=== PATIENT | female | born 1965 | race Caucasian/White ===

== ENCOUNTER → 2017-02-14 | Day surgery (SDC) | payer OTHER ==
[~2017-02-14] VITALS: Ht 161.3 cm; Wt 142.0 kg
[~2017-02-14] MED LIST: ACETAMINOPHEN 325 MG TAB PO PRN; ASPCH81X PO; ASPI81TA28 PO; ATROPINE SULFATE 0.1 MG/ML 5ML SYR IV PRN; B-COTAB18 PO; CALC-393 PO; CETI10TA99 PO; CHOL100010 PO; CHOL200010 PO; CLR10 PO; DC ALL ANTICOAGULANTS ONE; ESCI1TAB10 PO; FENTANYL CITRATE INJ 50 MCG/1 ML 2 ML VIAL ONE; FERR1TAB61 PO; GABA800T PO; HEPARIN SOD (PORCINE) 1000 UNIT/ML 10 ML VIAL ONE; HYDR25TA4 PO; IBUP1CAP9 PO; LANS30CA12 PO; MECL1TAB42 PO; MIDAZOLAM HCL 1 MG/ML 2ML VIAL ONE; MULT-506 PO; NITROGLYCERIN/D5W 100MCG/ML 20ML SYR ONE; NiCARDipine HCL INJ 2.5 MG/ML 10 ML AMP ONE; OMEP40CA PO; ONDANSETRON INJ 2 MG/ML 2 ML VIAL IV PRN; RANI150T3 PO; SODIUM CHLORIDE 0.9% 1000ML 1,000 ML IV SCH; SODIUM CHLORIDE 0.9% 1000ML 250 ML IV PRN; TRAZ50TA35 PO; ZINC100T2 PO
[2017-02-14 09:16] VITALS: BP 144/114; PULSE 61; TEMP 36.4; O2SAT 98; Ht 161.3 cm; Wt 142.0 kg
--- NOTE | 2017-02-14 10:25 | History & Physical Bridge Note ---
H&P Re-Evaluation Bridge Note: I have examined the patient, reviewed the History & Physical and in the interval since the performance of the History & Physical I have noted the following changes of clinical significance: No changes noted
--- NOTE | 2017-02-14 10:30 | Cardiac Catheterization ---
Procedure Note Procedure Date Feb 14, 2017. Pre-Procedure Diagnosis Angina AUC Score 7 Post-Procedure Diagnosis Normal Coronary Arteries Procedure(s) Performed Coronary Angiography [employer] Dr. Dobbins Director Of Nuclear Medicine(s) None Estimated Blood Loss None Medication(s) Heparin, Versed, Lidocaine 1% Summary of Findings Normal coronaries Hemodynamics Rest Ao: 126/78 Final Ao: 129/78 LV: 129/11 Recommendations Medical therapy and/or Counseling Specimens None Radiation Exposure (mGy) 1219 Contrast (mls) 55 Fluids (cc crystalloids) 50 Procedural Complication(s) None Disposition Pattern Hand Holding/Recovery ACC Data Cardiac Status Clinical evaluation leading to the procedure CAD Presntation: Stable angina Anginal Classification: CCS II Heart Failure: No Cardiogenic Shock w/in 24Hrs: No Cardiac Arrest w/in 24Hrs: No Imaging studies past 6 months: Yes Stress studies past 6 months: Yes Standard Exercise Stress Test: No Stress Echocardiogram: Yes - Indeterminant Stress Testing w/SPECT MPI: No Cardiac CTA: No Coronary Anatomy Dominant: Right Left Main (% Stenosis): Normal LAD (% Stenosis): Normal Circumflex (% Stenosis): Normal RCA (% Stenosis): Normal Diagnostic Status: Elective Closure Device Percutaneous Entry Location: Radial Closure Device: Radial Band Recommendations: Medical therapy and/or Counseling
--- NOTE | 2017-02-14 10:32 | Discharge Instructions ---
Discharge Instructions Procedure Procedure Date: Feb 14, 2017. Reason for Visit: Chest Pain Dr Dobbins To Do. Discharge Discharge Date: Feb 14, 2017. Discharge Diagnosis: Normal Coronaries Last Recorded Wt (Kilograms): 142 Anesthesia Post Anesthesia Instructions: If you have had General Anesthesia or IV Sedation: * Do not drive today. * Resume driving when surgeon permits. * Do not make important decisions or sign legal documents today. * Call surgeon for: 1. Temperature elevations greater than 101 degrees F. 2. Uncontrollable pain. 3. Excessive bleeding. 4. Persistent nausea and vomiting. 5. Medication intolerance (nausea, vomiting or rash). * For nausea and vomiting use only clear liquids such as: tea, soda, bouillon until nausea subsides, then gradually increase diet as tolerated. * If you have any concerns or questions, call your surgeon's office. If physician is unavailable and it is an emergency, call 911 or go to the nearest emergency room. Instructions Activity Recommendations: limitations Recommended Home Diet: resume previous diet Allergies: Coded Allergies: Lisinopril (Verified Allergy, Severe, EDEMA TO FACE/LIPS/TONGUE, 09/26/15) Celecoxib (Verified Allergy, Unknown, PT REPORTED ALLERGY DURING HOSP STAY -REDNESS, 09/26/15) Morphine (Verified Adverse Reaction, Intermediate, ITCHING, 09/26/15) Vancomycin (Verified Adverse Reaction, Intermediate, RED, ITCHY--RED MAN'S , 09/26/15) Penicillins (Verified Adverse Reaction, Mild, FATIGUE, 09/23/15) Uncoded Allergies: PENICILLIN (Allergy, Unknown, Trouble walking, 09/26/15) Provider Instructions ACTIVITY RECOMMENDATIONS: Excess manipulation of the wrist should be avoided for the next 24-48 hours. * No lifting over 2 pounds (approximately a 1/2 gallon of milk) with the utilized arm for 24 hours. * No strenuous activity such as bowling or tennis for 3 days. * Keep the site of the procedure covered with a bandage for 24 hours. *You may shower the day after the procedure. Do not take a tub bath or submerge the puncture site in water for the next 3 days. *Do not operate any motorized equipment for 3 days. SPECIAL CARE INSTRUCTIONS: The site may be slightly bruised and sore following your procedure. Should any of the following occur, contact the DrReilly who performed your procedure. 1. Redness/inflammation, swelling, chills, or fever, or colored drainage at procedure site within 3-7 days after your procedure. 2. Coldness, discoloration, ongoing numbness, severe pain, or swelling. Expect mild tingling of hand and tenderness at the puncture site for up to three days. If this persists beyond three days, or other symptoms develop, notify the DrReilly who performed your procedure. BLEEDING: If the procedure site on your wrist begins to bleed, do not panic 1. Place 1 or 2 fingers firmly just slightly above the insertion site to stop the bleeding. You may be able to feel your pulse as you hold pressure. 2. Lift your finger after 5 minutes to see if the bleeding has stopped. 3. Once the bleeding has stopped, gently wipe the wrist area clean with a bandage. * If the bleeding from your wrist does not stop after 10 minutes, or if there is a large amount of bleeding or spurting, call 911 ([address] drive yourself to the hospital). SKIN IRRITATION: * You may experience some redness and/or swelling in the area where radiation was administered. If any skin irritation occurs, please contact your family physician. FOLLOW UP VISIT: Keep any scheduled doctor appointments. Follow Up Paulina Trinh Recommendations: Call your doctor if: * Temperature above 101 degrees * Pain not relieved by pain medicine ordered * There is increased drainage or redness from any incision * You have any unanswered questions or concerns. Your Doctors Instructions noted above were prepared by provider Christoph Dobbins. Patient Signature Section: Patient Instructions Signature Page Maty Perkins Patient (or Guardian) Signature/Date: I have read and understand the instructions given to me by my caregivers. Caregiver/RN/Doctor Signature/Date: The above-named patient and/or guardian has received patient instructions on this date. + Original Patient Signature Page (only) stays with chart. Please make copy for patient.
--- NOTE | 2017-02-14 10:33 | Procedure Note ---
Pre-Mod Sedation Assessment General Date of Moderate Sedation: Feb 14, 2017. Vital Signs: Vital Signs Past 12 Hours Date Time Temp Pulse Resp B/P (MAP) Pulse Ox O2 Delivery O2 Flow Rate FiO2 02/14/17 10:18 60 16 150/79 (102) 97 Mask 2 02/14/17 09:16 36.4 61 16 144/114 98 Room Air Review Cardiovascular: regular rate, rhythm, no murmur Abdomen: non tender, soft, no organomegaly Lungs: chest non-tender, lungs clear, normal breath sounds Airway Class: I Pre-Sedation Airway Assessment Oral Cavity: Capped Teeth Able to Visualize Vocal Cords: No Short Thick Neck: No Hx of Sleep Apnea: Yes Smoking Status: Never Smoker Mallampati Classification: Class I (Sft palate,uvula,fauces,pillar) ASA Classification: Class I Procedure Planning Contraindications-for Mod Sed: None Yes Notes The planned sedation has been discussed with the patient and consent obtained. I have identified the patient, determined the appropriateness of sedation and have assessed the patient immediately prior to the procedure. All medicine(s) and interventions are by my order.
--- NOTE | 2017-02-14 10:34 | Procedure Note ---
Post-Mod Sedation Assessment General Date of Moderate Sedation Feb 14, 2017. Stop: 10:18 AM Vital Signs: Vital Signs Past 12 Hours Date Time Temp Pulse Resp B/P (MAP) Pulse Ox O2 Delivery O2 Flow Rate FiO2 02/14/17 10:18 60 16 150/79 (102) 97 Mask 2 02/14/17 09:16 36.4 61 16 144/114 98 Room Air Review - Discharge Criteria Vital Signs Stable: Yes Alert/Oriented/Conversant: Yes Returned to Baseline Mental St: Yes Nausea Absent/Minimal: Yes Pain/Discomfort/Absent/Minimal: Yes Normal/Baseline Respirations: Yes Active Bleeding?: No Pt Received D/C Instructions: Yes Specific Proced. D/C Criteria Distal Pulses Present (Cardiac: Yes Groin site assessed-Card Cath: Yes Voided Prior To Discharge: Yes Discharged Patients Adult Escort/Transportation: Yes
[2017-02-14 12:15] VITALS: BP 130/79; PULSE 57; O2SAT 98
== END | disposition home or self-care (01) ==
LOC: C.CATH 08:17
PROVIDERS: ATTEND Internal Medicine Interventional Cardiology
DX: R07.9 Chest pain, unspecified (principal); E66.01 Morbid (severe) obesity due to excess calories; I10 Essential (primary) hypertension; F33.9 Major depressive disorder, recurrent, unspecified; G47.33 Obstructive sleep apnea (adult) (pediatric); Z82.49 Family history of ischemic heart disease and other diseases of the circulatory system; Z80.0 Family history of malignant neoplasm of digestive organs; Z79.899 Other long term (current) drug therapy; Z83.3 Family history of diabetes mellitus; Z79.82 Long term (current) use of aspirin; Z83.6 Family history of other diseases of the respiratory system

== ENCOUNTER → 2017-04-08 | Day surgery (SDC) | payer OTHER ==
[2017-04-03 15:26] VITALS: Ht 161.3 cm; Wt 138.6 kg
[~2017-04-08] VITALS: Ht 161.3 cm; Wt 138.6 kg
[~2017-04-08] MED LIST changes: -ACETAMINOPHEN 325 MG TAB PO PRN; -ASPCH81X PO; -ASPI81TA28 PO; -ATROPINE SULFATE 0.1 MG/ML 5ML SYR IV PRN; -CALC-393 PO; -CETI10TA99 PO; -CHOL200010 PO; -DC ALL ANTICOAGULANTS ONE; -FENTANYL CITRATE INJ 50 MCG/1 ML 2 ML VIAL ONE; -HEPARIN SOD (PORCINE) 1000 UNIT/ML 10 ML VIAL ONE; -IBUP1CAP9 PO; +LIDOCAINE HCL 2% 2 ML VIAL (20MG/ML) ONE; -NITROGLYCERIN/D5W 100MCG/ML 20ML SYR ONE; -NiCARDipine HCL INJ 2.5 MG/ML 10 ML AMP ONE; -OMEP40CA PO; -ONDANSETRON INJ 2 MG/ML 2 ML VIAL IV PRN; +PROPOFOL IV EMULSION 10 MG/ML 20 ML VIAL IV ONE; -SODIUM CHLORIDE 0.9% 1000ML 1,000 ML IV SCH; -SODIUM CHLORIDE 0.9% 1000ML 250 ML IV PRN; +SODIUM CHLORIDE 0.9% 500ML 500 ML IV ONE
--- NOTE | 2017-04-08 10:02 | Endo History and Physical ---
History & Physical Date of Service: Apr 08, 2017. Chief Complaint: chest pain Referring Physician: Dr. Anderson Nieves History of Present Illness non cardiac chest pain Past Medical History Arthritis, Fractures, Reflux, Sleep Apnea, Hypertension, Other, Depression Past Surgical History Hx Cardiac Surgery: No Hx Internal Defibrillator: No Hx Pacemaker: No Hx Abdominal Surgery: Yes (SHARIFA BSO, LAPAROSCOPY X5(?), FIBROID TUMOR REMOVAL) Hx Post-Op Nausea and Vomiting: No Hx Cancer Surgery: No Hx Thoracic Surgery: No Hx Orthopedic: Yes (L4-5 FUSION AND REVISION, RT/LT TKA, RT TKA REVISION, LT HAND, LT WRIST) Hx Urinary Tract Surgery: No Family History Colon CA Social History Smoking Status: Never Smoker Hx Substance Use: No Hx Alcohol Use: Yes (RARELY) Allergies Coded Allergies: Lisinopril (Verified Allergy, Severe, EDEMA TO FACE/LIPS/TONGUE, 04/03/17) Celecoxib (Verified Allergy, Unknown, PT REPORTED ALLERGY DURING HOSP STAY -REDNESS, 04/03/17) Morphine (Verified Adverse Reaction, Intermediate, ITCHING, 04/03/17) Vancomycin (Verified Adverse Reaction, Intermediate, RED, ITCHY--RED MAN'S , 04/03/17) Penicillins (Verified Adverse Reaction, Mild, FATIGUE, 04/03/17) Uncoded Allergies: JEWELRY (Allergy, Unknown, SKIN IRRITATION, 04/03/17) PT STATES HAS HAD NO PROBLEMS SURGERIES INCLUDING HARDWARE PENICILLIN (Allergy, Unknown, Trouble walking, 09/26/15) Current Medications Reported Home Medications Medications Dose Route/Sig Max Daily Dose Days Date Category Iron (Ferrous Sulfate) 45 Mg Tab 1 Tab PO DAILY 04/03/17 Reported Zinc 100 Mg Tab 1 Tab PO DAILY 04/03/17 Reported Claritin (Loratadine) 10 Mg Tab 10 Mg PO QAM 04/03/17 Reported Multivitamin (Multivitamins) Tab 1 Tab PO DAILY 02/14/17 Reported Vitamin B Complex (B-Complex Vitamins) 1 Tab Tab 1 Tab PO DAILY 02/14/17 Reported Meclizine Hcl 25 Mg Tab 1 Tab PO TID PRN 02/14/17 Reported Lexapro (Escitalopram Oxalate) 20 Mg Tab 20 Mg PO QAM 02/14/17 Reported Vitamin D (Cholecalciferol) 1,000 Unit Tab 1,000 Units PO DAILY 02/14/17 Reported Trazodone (Trazodone HCl) 50 Mg Tab 50 Mg PO HS 02/14/17 Reported Hctz (Hydrochlorothiazide) 25 Mg Tab 1 Tab PO QAM 02/14/17 Reported Zantac (Ranitidine HCl) 150 Mg Tab 1 Tab PO BID 02/14/17 Reported Prevacid (Lansoprazole) 30 Mg Capcr 30 Mg PO QAM 02/14/17 Reported Neurontin (Gabapentin) 800 Mg Tab 800 Mg PO BID 02/14/17 Reported Vital Signs Weight (Kilograms): 138.64 Height (Feet): 5 Height (Inches): 3.5 Date Time Temp Pulse Resp B/P (MAP) Pulse Ox O2 Delivery O2 Flow Rate FiO2 04/08/17 09:22 36.6 57 20 119/66 (83) 97 Room Air Physical Exam General Appearance: WD/WN, no apparent distress Assessment and Plan EGD with SHOOK today
--- NOTE | 2017-04-08 10:16 | Discharge Instructions ---
Endoscopy Patient Instructions Date / Procedure(s) Performed Apr 08, 2017. EGD Allergy Information Coded Allergies: Lisinopril (Verified Allergy, Severe, EDEMA TO FACE/LIPS/TONGUE, 04/03/17) Celecoxib (Verified Allergy, Unknown, PT REPORTED ALLERGY DURING HOSP STAY -REDNESS, 04/03/17) Morphine (Verified Adverse Reaction, Intermediate, ITCHING, 04/03/17) Vancomycin (Verified Adverse Reaction, Intermediate, RED, ITCHY--RED MAN'S , 04/03/17) Penicillins (Verified Adverse Reaction, Mild, FATIGUE, 04/03/17) Uncoded Allergies: JEWELRY (Allergy, Unknown, SKIN IRRITATION, 04/03/17) PT STATES HAS HAD NO PROBLEMS SURGERIES INCLUDING HARDWARE PENICILLIN (Allergy, Unknown, Trouble walking, 09/26/15) Discharge Date / Findings Apr 08, 2017. normal EGD; SHOOK placed Medication Instructions Stopped Medication(s): stopped supplements on Saturday Restart Stopped Medication(s): OK to resume all home medications as above Provider Instructions Activity Restrictions - No exercising or heavy lifting for 24 hours. - Do not drink alcohol the day of the procedure. - Do not drive a car or operate machinery until the day after the procedure. - Do not make any important decisions or sign important papers in 24 hours after the procedure. Following Day: - Return to full activity which may include returning to work/school. Diet Start your diet with liquids and light foods (jello, soup, juice, toast). Then eat your usual diet if not nauseated. Treatment For Common After Affects For mild abdominal pain, bloating, or excessive gas: - Rest - Eat lightly - Lie on right side Follow-Up Information Follow-up with Dr. Anderson Nieves as scheduled Anesthesia Information What You Should Know You have had a procedure that required some medicine to reduce anxiety and discomfort. This treatment is called moderate sedation. After receiving the treatment, you may be sleepy, but you will be able to breathe on your own. The effects of the treatment may last for several hours. Follow these instructions along with Activity/Diet recommendations noted above: * Do NOT do anything where dizziness or clumsiness would be dangerous. * Rest quietly at home today, then you can be up and about tomorrow. * Have a responsible person stay with you the rest of today. * You may have had an I.V. today. If so, you may take the dressing off later today. Recommendations Call your doctor if: * Trouble breathing * Continuous vomiting for more than 24 hours * Temperature above 101 degrees * Severe abdominal pain or bloating * Pain not relieved by pain medicine ordered * There is increased drainage or redness from any incision * A large amount of rectal bleeding greater than 2-3 tablespoons. (If you had a polyp/s removed or have hemorrhoids, a small amount of blood - from the rectum is to be expected.) * You have any unanswered questions or concerns. IN THE EVENT OF A SERIOUS EMERGENCY, GO TO THE NEAREST EMERGENCY ROOM Your discharge instructions were prepared by provider Elo Mcdonough. Patient Instructions Signature Page Maty Perkins Patient (or Guardian) Signature/Date: I have read and understand the instructions given to me by my caregivers. Caregiver/RN/Doctor Signature/Date: The above-named patient and/or guardian has received patient instructions on this date. + Original Patient Signature Page (only) stays with chart. Please make copy for patient.
--- NOTE | 2017-04-08 10:21 | GI REPORT ---
Procedure Date: 04/08/2017 9:47 AM Procedure: Upper GI endoscopy Indications: Epigastric abdominal pain, Chest pain (non cardiac) Medicines: Propofol per Anesthesia Complications: No immediate complications. Estimated blood loss: None. Estimated Blood Loss: Estimated blood loss: none. Procedure: Pre-Anesthesia Assessment: - Prior to the procedure, a History and Physical was performed, and patient medications, allergies and sensitivities were reviewed. The patient's tolerance of previous anesthesia was reviewed. - The risks and benefits of the procedure and the sedation options and risks were discussed with the patient. All questions were answered and informed consent was obtained. - Patient identification and proposed procedure were verified prior to the procedure by the physician and the nurse. The procedure was verified in the pre-procedure area in the procedure room. - Mental Status Examination: alert and oriented. Airway Examination: normal oropharyngeal airway and neck mobility. Respiratory Examination: clear to auscultation. CV Examination: normal. Abdominal Examination: bowel sounds present, abdomen soft and non-tender, no masses or organomegaly noted. - ASA Grade Assessment: III - A patient with severe systemic disease. After obtaining informed consent, the endoscope was passed under direct vision. Throughout the procedure, the patient's blood pressure, pulse, and oxygen saturations were monitored continuously. The scope was introduced through the mouth, and advanced to the second part of duodenum. The upper GI endoscopy was accomplished without difficulty. The patient tolerated the procedure well. Findings: The examined esophagus was normal. The SHOOK capsule with delivery system was introduced through the mouth and advanced into the esophagus, such that the SHOOK pH capsule was positioned 32 cm from the incisors, which was 6 cm proximal to the EG junction. Suction was applied to the well of the SHOOK pH capsule to suck in the adjacent mucosa of the esophagus using the external vacuum pump set at a minimum vacuum pressure of 550 mmHg for 60 seconds. The SHOOK pH capsule was then deployed by depressing the plunger on top of the handle to advance the locking pin into the mucosa, thereby attaching the capsule to the esophagus. The plunger was then rotated a quarter turn clockwise to release the capsule from the delivery system. The delivery system was then withdrawn. Endoscopy was utilized for probe placement and diagnostic evaluation. The stomach was normal. The examined duodenum was normal. Impression: - Normal esophagus. - Normal stomach. - Normal examined duodenum. - The SHOOK pH capsule was positioned 32 cm from the naris, which was 6 cm proximal to the EG junction. - No specimens collected. Recommendation: - Follow SHOOK instructions - Continue present medications. - Return to primary care physician as previously scheduled. - Discharge patient to home. Elo Mcdonough D.O. Elo Mcdonough DO 04/08/2017 10:20:56 AM This report has been signed electronically. Note Initiated On: 04/08/2017 9:47 AM I attest to the content of the Intraoperative Record and orders documented therein, exceptions below
--- NOTE | 2017-04-08 10:28 | Anesthesiology Progress Note ---
Anesthesia Post Op Note Date & Time Apr 08, 2017 at 10:28 Vital Signs Pain Intensity: 0 Vital Signs Past 12 Hours Date Time Temp Pulse Resp B/P (MAP) Pulse Ox O2 Delivery O2 Flow Rate FiO2 04/08/17 10:20 68 18 132/82 (99) 95 Room Air 04/08/17 09:22 36.6 57 20 119/66 (83) 97 Room Air Notes Mental Status: alert / awake / arousable, participated in evaluation Pt Amnestic to Procedure: Yes Nausea / Vomiting: adequately controlled Pain: adequately controlled Airway Patency, RR, SpO2: stable & adequate BP & HR: stable & adequate Hydration State: stable & adequate Anesthetic Complications: no major complications apparent
[2017-04-08 11:00] VITALS: BP 131/91; PULSE 66; O2SAT 96
--- NOTE | 2017-04-11 11:56 | Progress Note ---
Progress Note Date of Service Apr 11, 2017. Progress Note SHOOK PROCEDURE REPORT 04/11/2017 REQUESTING PHYSICIAN: Marvin Nieves MD Following endoscopic placement of the SHOOK esophageal pH system, a 48 hour pH analysis was performed with the patient ON acid blocking medications. The fraction of time the esophageal pH was below 4 was 0.7% on day one and 0.4% on day two. The overall fraction of time for the entire study period was 0.5% ( normal range in <4.2%), indicating no significant increase in acid exposure in the distal esophagus on either day of the study. The DeMeester score on day one was 3.0 and on day two, 1.9. Normal is <14.72. The overall DeMeester score was 2.5. The patient reported less than 10 episodes of either chest pain or regurgitation during the study period. There is no correlation between the symptoms and episodes of acid exposure. There are a few brief episodes of acid exposure during the supine portions of the study. IMPRESSION: No evidence of increased acid exposure on the distal esophagus for the entire study period. Study done on acid blocking medications. Results indicate that the current level of acid suppression is effective. No symptom correlation. RECOMMENDATION: Return to PCP to discuss other potential causes of the chest pain . Elo Mcdonough DO [facility]
== END | disposition home or self-care (01) ==
LOC: C.GI 08:53
PROVIDERS: ATTEND Internal Medicine
DX: K21.9 Gastro-esophageal reflux disease without esophagitis (principal); I10 Essential (primary) hypertension; G47.30 Sleep apnea, unspecified; F32.9 Major depressive disorder, single episode, unspecified; Z80.0 Family history of malignant neoplasm of digestive organs; Z79.899 Other long term (current) drug therapy

== ENCOUNTER 2022-02-26 05:53 | Observation (INO) ==
--- NOTE | 2022-02-08 09:55 | PAT Medication Instructions ---
Medication Instructions Date of Service February 08, 2022 Home Medications escitalopram oxalate 20 mg tablet (Lexapro) 20 mg PO QAM hydrochlorothiazide 25 mg tablet 25 mg PO QAM loratadine 10 mg tablet 10 mg PO QAM meclizine 25 mg tablet 25 mg PO TID PRN Vertigo calcium carbonate 600 mg-vitamin D3 5 mcg (200 unit) tablet (Calcium 600 + D(3)) 1 tab PO QAM cimetidine 300 mg tablet 300 mg PO QAM Boswellia Zaria 1 tab PO QAM fluticasone propionate 50 mcg/actuation nasal spray,suspension (Flonase Allergy Relief) 2 spray intranasal DAILY PRN Congestion Cataplex 1 dose PO DAILY cholecalciferol (vitamin D3) 25 mcg (1,000 unit) chewable tablet (Vitamin D3) 25 mcg PO DAILY ibuprofen 200 mg tablet 400 mg PO BID lansoprazole 30 mg capsule,delayed release 30 mg PO QAM ASK your surgeon for instructions ibuprofen 200 mg tablet 400 mg PO BID STOP taking 2 weeks before surgery Boswellia Zaria 1 tab PO QAM Cataplex 1 dose PO DAILY DO NOT take the morning of surgery hydrochlorothiazide 25 mg tablet 25 mg PO QAM loratadine 10 mg tablet 10 mg PO QAM calcium carbonate 600 mg-vitamin D3 5 mcg (200 unit) tablet (Calcium 600 + D(3)) 1 tab PO QAM cholecalciferol (vitamin D3) 25 mcg (1,000 unit) chewable tablet (Vitamin D3) 25 mcg PO DAILY Take morning of surgery With a small sip of water, OTHERWISE NOTHING TO EAT OR DRINK AFTER MIDNIGHT: escitalopram oxalate 20 mg tablet (Lexapro) 20 mg PO QAM meclizine 25 mg tablet 25 mg PO TID PRN Vertigo (if needed) fluticasone propionate 50 mcg/actuation nasal spray,suspension (Flonase Allergy Relief) 2 spray intranasal DAILY PRN Congestion (if needed) cimetidine 300 mg tablet 300 mg PO QAM lansoprazole 30 mg capsule,delayed release 30 mg PO QAM Take evening before surgery meclizine 25 mg tablet 25 mg PO TID PRN Vertigo (if needed) fluticasone propionate 50 mcg/actuation nasal spray,suspension (Flonase Allergy Relief) 2 spray intranasal DAILY PRN Congestion (if needed) Other Notes If you have any questions please call us at [phone] or [phone] or [phone] or [phone]
--- NOTE | 2022-02-12 11:26 | Anesthesiology Consultation ---
Date of Service February 12, 2022 Assessment & Plan (1) Encounter for pre-operative examination: Plan - potential difficult intubation: limited cervical extension, small oral opening and Mallampati 3 airway. - COVID screening: Per assessment on 02/12/2022: Travel screen returned from [facility] 02/06, no known COVID-19 positive contacts or current COVID-19 related symptoms in past 2 weeks. Pt vaccinated. Surgeon arranging preop COVID testing, scheduled 02/22/2022. Awaiting results. Chart Review Chart Review: Acceptable Risk for Surgery and Patient seen in Pre Admission Testing Teaching & Discussion Pre-Anesthesia Teaching/Discussion Notes: Instructed NPO after midnight before surgery, except medications with 15 cc of water. Medication instructions provided according to the PAT guidelines. History Surgery Operation Date: 02/26/22 07:45 Proposed Procedures p C7-T1 Anterior Cervical Discectomy Fusion, C6 Corpectomy Spinal Cord Monitoring - Jaguar Lyons DO Height/Weight Height: 5 ft 3.5 in Weight: 137.4 kg Allergies Allergy/AdvReac Type Severity Reaction Status Date / Time lisinopril Allergy Severe EDEMA TO Verified 02/07/22 13:42 FACE/LIPS/TONGUE morphine Allergy Intermediate ITCHING Verified 02/12/22 11:20 vancomycin Allergy Intermediate RED, Verified 02/12/22 11:20 ITCHY--RED MAN'S Penicillins Allergy Mild FATIGUE/ Verified 02/07/22 13:42 trouble walking celecoxib Allergy Unknown PT Verified 02/07/22 13:42 REPORTED ALLERGY DURING HOSP STAY-REDNESS JEWELRY Allergy Unknown SKIN Uncoded 02/07/22 13:42 IRRITATION Medications Home Medications Medication Instructions Recorded Confirmed Last Taken escitalopram oxalate 20 mg tablet 20 mg PO QAM 05/24/19 02/07/22 11/22/20 (Lexapro) hydrochlorothiazide 25 mg tablet 25 mg PO QAM 05/24/19 02/07/22 11/22/20 loratadine 10 mg tablet 10 mg PO QAM 05/24/19 02/07/22 11/22/20 meclizine 25 mg tablet 25 mg PO TID PRN Vertigo 05/24/19 02/07/22 11/22/20 calcium carbonate 600 mg-vitamin 1 tab PO QAM 11/21/20 02/07/22 11/22/20 D3 5 mcg (200 unit) tablet (Calcium 600 + D(3)) cimetidine 300 mg tablet 300 mg PO QAM 11/21/20 02/07/22 11/22/20 Boswellia Zaria 1 tab PO QAM 12/30/20 02/07/22 Unknown fluticasone propionate 50 2 spray intranasal DAILY PRN 09/12/21 02/07/22 Unknown mcg/actuation nasal Congestion spray,suspension (Flonase Allergy Relief) Cataplex 1 dose PO DAILY 02/07/22 02/07/22 Unknown cholecalciferol (vitamin D3) 25 25 mcg PO DAILY 02/07/22 02/07/22 Unknown mcg (1,000 unit) chewable tablet (Vitamin D3) ibuprofen 200 mg tablet 400 mg PO BID 02/07/22 02/07/22 Unknown lansoprazole 30 mg capsule,delayed 30 mg PO QAM 02/07/22 02/07/22 Unknown release Past Medical History Medical History (Updated 02/12/22 @ 11:21 by Merline Menjivar PA-C) Degenerative disc disease Depression GERD (gastroesophageal reflux disease) Hiatal hernia History of COVID-25 Jun 2021 > not hospitalized > congestion, fatigue, gi upset Hypertension controlled, stable per pt Sleep apnea cpap-compliant Vertigo no current issues Patient denies h/o stroke, seizures, heart attack, heart failure, DM, blood clots or blood transfusions. Exercise / Class Metabolic Activity III < 4 Walking/Shop/Light housework (SOB with 1 FOS, x years, denies change or worsening; ambulates mainly on flat surfaces, denies chest discomfort with either) Past Family History Family History Father Colorectal cancer Mother Diabetes Hypertension Brother Cancer of kidney Past Surgical History Surgical History (Updated 02/12/22 @ 11:23 by Merline Menjivar PA-C) Fusion of spine lumbar x2 History of arthroplasty of knee bilat (right x3) History of cardiac cath 5 yrs ago > [facility] > no stents > done for C.P History of cataract surgery left History of colonoscopy History of dilatation and curettage History of esophagogastroduodenoscopy (EGD) History of hysterectomy History of laparoscopy several History of surgery on left wrist hardware present History of tonsillectomy History of tooth extraction Past Anesthesia History No Hx of Anesthesia Complications and No Family Hx of Anesthesia Complications History of PONV No Hx of PONV and Hx of Motion Sickness Social History Smoking Status: Never smoker Do You Dip or Chew Tobacco: No Hx Alcohol Use: Yes Alcohol type: wine and hard liquor alcohol intake frequency: a few times a month Hx Substance Use: No substance use type: does not use Review of Systems Patient denies chest pain, fever, chills, cough, wheezing, or palpitations. Physical Exam Vital Signs Vitals BP 130/80 P 59 TEMP 97.4 SP02 100% on RA RESP 17 Physical Limited cervical extension range of motion without pain TMD 3.5 finger breadths Mallampati Score 3, small oral opening Dentition: intact, one cap front upper; denies chipped or loose teeth, implants or bridges Lungs: normal respiratory effort. Clear throughout to auscultation, no adventitious breath sounds Cardiac: regular rate and rhythm, no murmurs noted Carotid arteries: negative bruit bilat Lab Results Anesthesia Preop Results Results Anesthesia Widget: WBC 6.22 K/ul (4.8-10.8) 02/12/22 Hgb 12.8 g/dl (12.0-16.0) 02/12/22 Hct 38.6 % (34.1-44.9) 02/12/22 Plt 301 K/uL (130-400) 02/12/22 Na 138 mmol/L (136-145) 02/12/22 K 3.7 mmol/L (3.5-5.1) 02/12/22 Cl 101 mmol/L (98-107) 02/12/22 CO2 32 mmol/L (21-32) 02/12/22 BUN 17 mg/dl (6-23) 02/12/22 Creat 0.64 mg/dl (0.6-1.2) 02/12/22 Glucose Level 108 mg/dl (70-99(Fasting)) H 02/12/22 PT 10.8 Seconds (9.0-12.0) 02/12/22 PTT 26.7 Seconds (21.0-31.0) 02/12/22 INR 1.0 (0.9-1.1) 02/12/22 Urine Color Yellow 02/12/22 Urine Appearance Clear (Clear) 02/12/22 Urine pH 6.5 (4.5-7.5) 02/12/22 Urine Specific [place] 1.017 (1.000-1.030) 02/12/22 Urine Protein Negative (Negative) 02/12/22 Urine Glucose (UA) Negative (Negative) 02/12/22 Urine Ketones Negative (Negative) 02/12/22 Urine Blood Negative (Negative) 02/12/22 Urine Nitrite Negative (Negative) 02/12/22 Urine Bilirubin Negative (Negative) 02/12/22 Urine Urobilinogen Negative (Negative) 02/12/22 Urine Leukocyte Esterase Negative (Negative) 02/12/22 Blood Type B Positive 02/12/22 Antibody Screen NEGATIVE 02/12/22 Testing Electrocardiogram Date: 02/12/22 NSR, rate 68 bpm Chest X-Ray Date: 02/12/22 Cardiomediastinal and hilar silhouettes are within normal limits. No pneumothorax, pleural effusion, airspace consolidation or overt pulmonary edema. Degenerative changes of the shoulders and spine. IMPRESSION: No acute process
[~2022-02-26 05:53] MED LIST changes: +ALLERGY Noted to ORDERED Medication SCH; -B-COTAB18 PO; -CHOL100010 PO; -CLR10 PO; -ESCI1TAB10 PO; -FERR1TAB61 PO; -GABA800T PO; -HYDR25TA4 PO; -LANS30CA12 PO; -LIDOCAINE HCL 2% 2 ML VIAL (20MG/ML) ONE; -MECL1TAB42 PO; -MIDAZOLAM HCL 1 MG/ML 2ML VIAL ONE; -MULT-506 PO; -PROPOFOL IV EMULSION 10 MG/ML 20 ML VIAL IV ONE; -RANI150T3 PO; -SODIUM CHLORIDE 0.9% 500ML 500 ML IV ONE; -TRAZ50TA35 PO; -ZINC100T2 PO
[2022-02-26] MEDS ORDERED: GABAPENTIN 600 MG DOSE PO SCH (06:00)
[2022-02-26] MEDS ORDERED: CeleBREX 200 MG CAP PO SCH (06:00)
[2022-02-26] MEDS ORDERED: ACETAMINOPHEN 500 MG TAB PO SCH (06:00)
[2022-02-26] MEDS ORDERED: LR 15ML/HR IV SCH (06:00)
[2022-02-26] MEDS ORDERED: CLINDAMYCIN/D5W 600 MG/54 ML BAG IV SCH (06:00)
[2022-02-26] MEDS ORDERED: PROPOFOL IV EMULSION 10 MG/ML 20 ML VIAL IV ONE (06:52)
[2022-02-26] MEDS ORDERED: MIDAZOLAM HCL 1 MG/ML 2ML VIAL ONE (06:52)
[2022-02-26] MEDS ORDERED: SUCCINYLCHOLINE 100MG/5ML SYR IV ONE (06:52)
[2022-02-26] MEDS ORDERED: LIDOCAINE 2% MPF LOCAL 5 ML VIAL INFIL ONE (06:52)
[2022-02-26] MEDS ORDERED: fentaNYL citrate 100 MCG/2 ML VIAL ONE (06:52)
[2022-02-26] MEDS ORDERED: PROPOFOL IV EMULSION 10 MG/ML 100 ML VIAL IV ONE (06:53)
[2022-02-26] MEDS ORDERED: PROMETHAZINE HCL 6.25 MG in SODIUM CHLORIDE 0.9% 50 ML IV PRN (07:12)
[2022-02-26] MEDS ORDERED: HYDROmorphone INJ 1 MG/ML SYRINGE IV PRN ×2 (07:12→12:02)
[2022-02-26] MEDS ORDERED: ePHEDrine sulfate 50 MG/ML AMP IV PRN (07:12)
[2022-02-26] MEDS ORDERED: ATROPINE SULFATE 0.1 MG/ML 10ML SYR IV PRN (07:12)
[2022-02-26] MEDS ORDERED: ONDANSETRON INJ 2 MG/ML 2 ML VIAL IV PRN ×2 (07:12→12:02)
[2022-02-26] MEDS ORDERED: fentaNYL citrate 100 MCG/2 ML VIAL IV PRN (07:12)
--- NOTE | 2022-02-26 07:27 | History & Physical Bridge Note ---
Date of Service February 26, 2022 History & Physical Bridge Note I have examined the patient, reviewed the History & Physical and in the interval since the performance of the History & Physical I have noted the following changes of clinical significance: no changes noted
--- NOTE | 2022-02-26 07:28 | History & Physical Report ---
Date of Service February 26, 2022 Assessment & Plan (1) Cervical stenosis of spinal canal: Plan: C7-T1 anterior cervical discectomy and fusion, C6 corpectomy History of Present Illness Chief Complaint: Neck and arm pain Primary Care Provider: Anderson Nieves MD This is a 57-year-old female presents with chronic persistent neck and arm symptoms with failed course of nonoperative care she is here for surgical invention. Allergies Allergy/AdvReac Type Severity Reaction Status Date / Time lisinopril Allergy Severe EDEMA TO Verified 02/26/22 06:09 FACE/LIPS/TONGUE morphine Allergy Intermediate ITCHING Verified 02/26/22 06:09 vancomycin Allergy Intermediate RED, Verified 02/26/22 06:09 ITCHY--RED MAN'S Penicillins Allergy Mild FATIGUE/ Verified 02/26/22 06:09 trouble walking celecoxib Allergy Unknown PT Verified 02/26/22 06:09 REPORTED ALLERGY DURING HOSP STAY-REDNESS JEWELRY Allergy Unknown SKIN Uncoded 02/07/22 13:42 IRRITATION Home Medications Medication Instructions Recorded Confirmed Type escitalopram oxalate 20 mg tablet 20 mg PO QAM 05/24/19 02/26/22 History (Lexapro) hydrochlorothiazide 25 mg tablet 25 mg PO QAM 05/24/19 02/26/22 History loratadine 10 mg tablet 10 mg PO QAM 05/24/19 02/26/22 History meclizine 25 mg tablet 25 mg PO TID PRN Vertigo 05/24/19 02/07/22 History calcium carbonate 600 mg-vitamin 1 tab PO QAM 11/21/20 02/26/22 History D3 5 mcg (200 unit) tablet (Calcium 600 + D(3)) cimetidine 300 mg tablet 300 mg PO QAM 11/21/20 02/26/22 History Boswellia Zaria 1 tab PO QAM 12/30/20 02/26/22 History fluticasone propionate 50 2 spray intranasal DAILY PRN 09/12/21 02/26/22 History mcg/actuation nasal Congestion spray,suspension (Flonase Allergy Relief) Cataplex 1 dose PO DAILY 02/07/22 02/26/22 History cholecalciferol (vitamin D3) 25 25 mcg PO DAILY 02/07/22 02/26/22 History mcg (1,000 unit) chewable tablet (Vitamin D3) ibuprofen 200 mg tablet 400 mg PO BID 02/07/22 02/26/22 History lansoprazole 30 mg capsule,delayed 30 mg PO QAM 02/07/22 02/26/22 History release Past Med/Surg History Medical History (Updated 02/26/22 @ 07:28 by Jaguar Lyons, DO) Degenerative disc disease Depression GERD (gastroesophageal reflux disease) Hiatal hernia History of COVID-25 Jun 2021 > not hospitalized > congestion, fatigue, gi upset Hypertension controlled, stable per pt Sleep apnea cpap-compliant Vertigo no current issues Surgical History Fusion of spine lumbar x2 History of arthroplasty of knee bilat (right x3) History of cardiac cath 5 yrs ago > [facility] > no stents > done for C.P History of cataract surgery left History of colonoscopy History of dilatation and curettage History of esophagogastroduodenoscopy (EGD) History of hysterectomy History of laparoscopy several History of surgery on left wrist hardware present History of tonsillectomy History of tooth extraction Family History Father Colorectal cancer Mother Diabetes Hypertension Brother Cancer of kidney Social History Smoking Status: Never smoker Second Hand Exposure: No; Do You Dip or Chew Tobacco: No; Tobacco Cessation Education Requested by Patient: No Hx Alcohol Use: Yes Alcohol type: wine and hard liquor Hx Substance Use: No Preferred Language: Divehi Communication Ability: Effective Roller Skate Assembler Required: No Beliefs That Will Affect Care: None marital status: / Current Living Situation: Spouse Other Information That Helps Us Care for You: No Feels Safe at Home: Yes Safety Concerns: Feels Safe At This Time Assistive Devices: Glasses Physical Exam Physical Exam: Patient is alert and oriented Heart regular rhythm Lungs clear Results & Data Results & Data ([facility]) Vital Signs (Past 12 Hours) Vital Signs Temp Pulse Resp BP Pulse Ox O2 Del Method 02/26/22 06:13 36.6 C 74 18 145/78 H 96 Room Air
[2022-02-26] MEDS ORDERED: ROCURONIUM BROMIDE 10 MG/ML 5 ML VIAL IV ONE (08:14)
[2022-02-26] MEDS ORDERED: HYDROmorphone INJ 2 MG/ML SYR/VIAL ONE (08:31)
[2022-02-26] MEDS ORDERED: SUCCINYLCHOLINE CHLORIDE 20 MG/ML 10 ML VIAL IV ONE (09:03)
[2022-02-26] MEDS ORDERED: DEXAMETHASONE SOD INJ 4 MG/ML VIAL ONE (09:03)
[2022-02-26] MEDS ORDERED: ONDANSETRON INJ 2 MG/ML 2 ML VIAL ONE (09:03)
[2022-02-26] MEDS ORDERED: GLYCOPYRROLATE 0.2 MG/ML VIAL ONE (09:41)
--- NOTE | 2022-02-26 09:51 | Operative Report ---
Post Operative Report Pre & Post Diagnosis Operation Date: 02/26/22 07:45 Pre-Op Diagnosis: Spinal Stenosis, Cervical Regions Post-Op Diagnosis: Spinal Stenosis, Cervical Regions I identified the patient and participated in the time-out.: Yes Procedure Operation Date: 02/26/22 07:45 Actual Procedures #1 anterior cervical corpectomy with bilateral foraminotomies C6. #2 anterior cervical discectomy with bilateral foraminotomies C7-T1. #3 anterior cervical arthrodesis C5-C7 and C7-T1. #4 placement of peek 21 mm cage C5-C7 and 9 mm cage C7-T1. #5 placement locally harvested morselized autograft combined with I factor and interbody cages. #6 application of henry plate and screws from C5- T1. Surgeon Jaguar Lyons, DO Advertising Assistant Manager Nevaeh Akins Estimated Blood Loss 25 Findings See Below The patient is 5 foot 3 inches tall weighing over 136 kg with a BMI in excess of 52. Patient's body habitus did contribute to significant technical difficulty required deeper retractors in order to perform her procedure. This at least 50% increased operative time. Specimens None Indications This is a 57-year-old female well-known to me the presents with cervical spinal stenosis and radiculopathy. After failing course of nonoperative care she is here for surgical invention. Description of Procedure Patient was met with identified informed consent obtained. Patient was then taken to the operative suite underwent a patient placed in supine position [place] table with head [place] department head. All bony prominences well-padded eyes inspected to ensure no external pressure placed upon them. This point the anterior cervical spine was prepped and draped in normal sterile fashion. The assistance of fluoroscopy identify the C6 vertebral body and a transverse incision was placed along the right anterior aspect of the cervical spine overlying this region. Blunt dissection with the assistance of bipolar electrocautery was then performed down to and exposing the anterior cervical spine from C5-T1. Self-retaining retractors placed. Then performed a complete discectomy of C5-C6 out to the uncovertebral joints bilaterally followed by C6- C7. [place] distracting pins were placed in C5 and C7 to distract across the C6 vertebral body. A complete corpectomy was then performed including removal of all posterior annular fibers and longitudinal ligament and bilateral foraminotomies. Endplates were then burred to subcortical bleeding bone and a 21 mm peek cage filled with locally harvested morselized autograft and I factor tapped in position. Distracting apparatus was removed and I proceeded to C7 and T1. A complete discectomy was then performed up to the uncovertebral's bilaterally. [place] distracting pins again utilized. Upon removal of posterior annular fibers. I did note an incidental durotomy. I was able to complete the decompression and foraminotomies. I did place a small piece of DuraGen over the durotomy with a touch of DuraSeal. This healed perfectly. Then placed a 9 mm peek cage filled with I factor and locally harvested morselized autograft in the disc space. Distracting apparatus was removed all anterior osteophytes burred to smooth cortical surface and a henry plate and screws applied with the assistance of fluoroscopy. The incision was then copiously irrigated explored to ensure no damage to surrounding structures remaining bleeding. 10 round ARTIS drain inserted. The incision was then closed with 2 Vicryl in a fashion of 4 Monocryl for final skin closure. Steri-Strip sterile dressings placed. Patient waken taken PACU stable condition. Please note spinal cord monitoring was utilized at the procedure no changes noted. Lastly Nevaeh Akins was present at the entire surgeon while the patient positioning complex portions of the surgery and fascial closure. I attest to the content of the Intraoperative Record and any orders documented therein. Any exceptions are noted below.
--- NOTE | 2022-02-26 10:15 | Fluoroscopy Report ---
FL cervical 2-3V CLINICAL HISTORY: C7-T1 ACDF C6 CORPECTOMY COMPARISON STUDY: None. FLUOROSCOPY TIME: 28 seconds. FINDINGS: 3 fluoroscopic spot images of the cervical spine demonstrate anterior cervical discectomy a nd fusion from C5 through T1. The hardware appears intact. Surgical sponge is noted at the surgical s ite. IMPRESSION: Fluoroscopic assistance provided for C5-T1 ACDF. ACT 112: Negative or not required by law. Electronically signed by: Osorio Cotton M.D. 02/26/2022 10:12 AM
[2022-02-26] MEDS ORDERED: MAGNESIUM HYDROXIDE SUSP 30 ML UDC PO PRN (12:02)
[2022-02-26] MEDS ORDERED: oxyCODONE HCL IR 5 MG TAB (IMMEDIATE RELEASE) PO PRN (12:02)
[2022-02-26] MEDS ORDERED: LORazepam 0.5 MG TAB PO PRN (12:02)
[2022-02-26] MEDS ORDERED: HYDROmorphone INJ 0.5 MG/0.5 ML SYR IV PRN (12:02)
[2022-02-26] MEDS ORDERED: ACETAMINOPHEN 1,000 MG/100 ML VIAL IV PRN (12:02)
[2022-02-26] MEDS ORDERED: MECLIZINE HCL 25 MG TAB PO PRN (12:02)
[2022-02-26] MEDS ORDERED: METOCLOPRAMIDE HCL INJ 5 MG/ML 2 ML VIAL IV PRN (12:02)
[2022-02-26] MEDS ORDERED: hydrOXYzine HCl 25 MG TAB PO PRN (12:02)
[2022-02-26] MEDS ORDERED: ALUMINUM/MAGNESIUM SUSP 30 ML UDC PO PRN (12:02)
[2022-02-26] MEDS ORDERED: SOD PHOSPHATE/SOD BIPHOSPHATE ENEMA 132 ML BTL PR PRN (12:02)
[2022-02-26] MEDS ORDERED: FLUTICASONE PROPIONATE NA SPR 16 GM BTL PRN (12:02)
[2022-02-26] MEDS ORDERED: dexAMETHasone 8 MG in SYRINGE 0 ML IV PRN (12:02)
[2022-02-26] MEDS ORDERED: NALOXONE HCL 0.4 MG/1 ML VIAL/CARP IV PRN (12:02)
[2022-02-26] MEDS ORDERED: diphenhydrAMINE Capsule 25 MG CAP PO PRN (12:02)
[2022-02-26] MEDS ORDERED: bisacodyL 10 MG SUPP PR PRN (12:02)
[2022-02-26] MEDS ORDERED: FAMOTIDINE 20 MG TAB PO PRN (12:02)
[2022-02-26] MEDS ORDERED: PROMETHAZINE HCL 12.5 MG in SODIUM CHLORIDE 0.9% 50 ML IV PRN (12:02)
[2022-02-26] MEDS ORDERED: LORazepam 0.5 MG in SYRINGE 0.25 ML IV PRN (12:02)
[2022-02-26] MEDS ORDERED: RACEPINEPHRINE 2.25% NEBU SOLN 0.5 ML VIAL INH PRN (12:02)
[2022-02-26] MEDS ORDERED: ONDANSETRON 4 MG OD TAB PO PRN (12:02)
[2022-02-26] MEDS ORDERED: LACTATED RINGER'S 1,000 ML IV SCH (12:02)
--- NOTE | 2022-02-26 12:31 | Consultation ---
Date of Consultation February 26, 2022 Assessment & Plan (1) Cervical stenosis of spinal canal: (2) Obstructive sleep apnea: (3) Obesity: (4) HTN (hypertension): (5) GERD (gastroesophageal reflux disease): (6) Vertigo: Plan Ms. Maty Perkins is a 57 year old female who is a patient of Dr. Lyons who presented to the [facility] with chronic persistent neck and arm symptoms that has since failed outpatient conservative management. She underwent a cervical corpectomy today. She has an additional PMH that includes: HTN, GERD, CHRISTIAN, vertigo and GERD. [facility] were consulted for continued post-operative medical management. Cervical Stenosis of spinal canal POD #0: #1 anterior cervical corpectomy with bilateral foraminotomies C6. #2 anterior cervical discectomy with bilateral foraminotomies C7-T1. #3 anterior cervical arthrodesis C5-C7 and C7-T1. #4 placement of peek 21 mm cage C5-C7 and 9 mm cage C7-T1. #5 placement locally harvested morselized autograft combined with I factor and interbody cages. #6 application of henry plate and screws from C5-T1. EBL: 25mL Pre-op Hgb on 02/12: 12.8 On Decadron post op On IV Abx post op On Ativan and Dilaudid post op. Dr. Lyons to manage all pain management, wound assessment/management, and post- surgical care. Pre-diabetes: HA1C: 6.0 on 10/19/21 On Decadron 8mg IV daily post operatively. Suggest diabetic diet as diet is advanced Will do ac/hs checks and start a SSI. --Goal BSG Range: Low _110mg/dL, High _180mg/dL --Correction Factor: _15mg/dL/unit. No CHO4 coverage. --BSGs ACHS if eating, q6h if npo Obstructive sleep apnea Obesity Wears a CPAP machine at home QHS Home Settings: CPAP +7, no heat. Recent PFT: Inspiratory capacity: 2.25L via Incentive Spirometry. Will order ISB here. HTN Stable: continue HCTZ Depression: Stable; continue Lexapro GERD Stable; continue Cimetidine and Lansoprazole Vertigo stable; continue Meclizine Disposition: PCP: Dr. Nieves Code Status: Full Code VTE Prophylaxis: TEDS and SCDs; otherwise defer to Ortho Plan to return home after DC Please contact [facility] via [place] Text 28/01 for any additional needs or if we can be of assistance. Supervising Physician Co-Signing Physician Notes I have seen and examined the patient and have discussed the case with the provider above. I agree with the assessment and plan as stated. She is doing well post cervical fusion today. She denies any pain and is breathing without difficulty. She reports a feeling of swelling in her right eye. There is no redness, or swelling present and pupils are PERRL with normal EOM. She may have a slight bagginess in her suborbital area but this is very slight. As she felt it was duet to the post operative fluids, these were stopped. Physical exam was otherwise normal and she appears comfortable and is mentating well. Current medical therapy reviewed and would cont. DO Mani History of Present Illness Requesting Physician: Dr. Lyons Reason for Consultation: medical management Attending Physician: Jaguar Lyons DO History of Present Illness Ms. Maty Perkins is a 57 year old female who is a patient of Dr. Lyons who presented to the [facility] with chronic persistent neck and arm symptoms that has since failed outpatient conservative management. She underwent a cervical corpectomy today. She has an additional PMH that includes: HTN, GERD, CHRISTIAN, vertigo and GERD. [facility] were consulted for continued post-operative medical management. Please see A/P for further details. Allergies Allergy/AdvReac Type Severity Reaction Status Date / Time lisinopril Allergy Severe EDEMA TO Verified 02/26/22 06:09 FACE/LIPS/TONGUE morphine Allergy Intermediate ITCHING Verified 02/26/22 06:09 vancomycin Allergy Intermediate RED, Verified 02/26/22 06:09 ITCHY--RED MAN'S Penicillins Allergy Mild FATIGUE/ Verified 02/26/22 06:09 trouble walking celecoxib Allergy Unknown PT Verified 02/26/22 06:09 REPORTED ALLERGY DURING HOSP STAY-REDNESS Home Medications Medication Instructions Recorded Confirmed Type escitalopram oxalate 20 mg tablet 20 mg PO QAM 05/24/19 02/26/22 History (Lexapro) hydrochlorothiazide 25 mg tablet 25 mg PO QAM 05/24/19 02/26/22 History loratadine 10 mg tablet 10 mg PO QAM 05/24/19 02/26/22 History meclizine 25 mg tablet 25 mg PO TID PRN Vertigo 05/24/19 02/07/22 History calcium carbonate 600 mg-vitamin 1 tab PO QAM 11/21/20 02/26/22 History D3 5 mcg (200 unit) tablet (Calcium 600 + D(3)) cimetidine 300 mg tablet 300 mg PO QAM 11/21/20 02/26/22 History Boswellia Zaria 1 tab PO QAM 12/30/20 02/26/22 History fluticasone propionate 50 2 spray intranasal DAILY PRN 09/12/21 02/26/22 History mcg/actuation nasal Congestion spray,suspension (Flonase Allergy Relief) Cataplex 1 dose PO DAILY 02/07/22 02/26/22 History cholecalciferol (vitamin D3) 25 25 mcg PO DAILY 02/07/22 02/26/22 History mcg (1,000 unit) chewable tablet (Vitamin D3) ibuprofen 200 mg tablet 400 mg PO BID 02/07/22 02/26/22 History lansoprazole 30 mg capsule,delayed 30 mg PO QAM 02/07/22 02/26/22 History release oxycodone 5 mg tablet 5 mg PO Q6H PRN pain, severe #20 02/26/22 Rx tabs tramadol 50 mg tablet 50 mg PO Q6H PRN pain, moderate 02/26/22 Rx #30 tabs Patient History Medical History (Updated 02/26/22 @ 13:01 by CYNDI Muñoz) Degenerative disc disease Depression GERD (gastroesophageal reflux disease) Hiatal hernia History of COVID-25 Jun 2021 > not hospitalized > congestion, fatigue, gi upset HTN (hypertension) Hypertension controlled, stable per pt Sleep apnea cpap-compliant Vertigo no current issues Surgical History Fusion of spine lumbar x2 History of arthroplasty of knee bilat (right x3) History of cardiac cath 5 yrs ago > [facility] > no stents > done for C.P History of cataract surgery left History of colonoscopy History of dilatation and curettage History of esophagogastroduodenoscopy (EGD) History of hysterectomy History of laparoscopy several History of surgery on left wrist hardware present History of tonsillectomy History of tooth extraction Family History Father Colorectal cancer Mother Diabetes Hypertension Brother Cancer of kidney Social History Smoking Status: Never smoker Second Hand Exposure: No; Do You Dip or Chew Tobacco: No; Tobacco Cessation Education Requested by Patient: No Hx Alcohol Use: Yes Alcohol type: wine and hard liquor Hx Substance Use: No Preferred Language: Wolof Communication Ability: Effective Component Engineer Required: No Beliefs That Will Affect Care: None marital status: / Current Living Situation: Spouse Other Information That Helps Us Care for You: No Feels Safe at Home: Yes Safety Concerns: Feels Safe At This Time Assistive Devices: Glasses Review of Systems Review of Systems: Neuro: (-) Falls, trauma, slurred speech HEENT: (-) WARNER, dizziness, dysphagia, visual or auditory changes CV: (-) CP, palpitations, swelling Resp: (-) SOB GI: (-) appetite changes, N/V/D, bowel changes : (-) urinary changes Skin: (-) rashes Psych: (-) anxiety, depression (+) sleepy Physical Exam Physical Exam: Neuro: AAOx4, PERRLA, no aphagia, memory changes, CNII-XII grossly intact HEENT: head normocephalic, moist mucus membranes CV: S1/S2, (-) M/G/R, (-) edema, cap refill < 3 seconds. Cervical ARTIS drain with bright red bloody drainage Resp: Lungs CTA in all lange. On 2LNC GI: Abdomen large S/NT/ND, Ax4 bowel sounds, (-) CVA tenderness Musculoskeletal: 5/5 B/L UE strength, 5/5 B/L LE strength. No gait disturbance. C-Collar in place Skin: (-) rashes , (-) erythema. Psych: euthymic mood Results & Data ([facility]) Vital Signs (Past 12 Hours) Vital Signs Temp Pulse Pulse Resp BP BP BP 02/26/22 12:27 65 18 142/84 H 02/26/22 12:02 37 C 64 18 140/80 02/26/22 11:40 56 L 12 150/70 H 02/26/22 11:30 56 L 12 148/73 H 02/26/22 11:20 58 L 20 146/80 H 02/26/22 11:10 67 18 139/75 02/26/22 11:00 36.8 C 61 12 156/84 H 02/26/22 10:50 59 L 12 166/89 H 02/26/22 10:40 62 13 157/84 H 02/26/22 10:30 69 18 134/87 02/26/22 10:20 62 12 168/85 H 02/26/22 10:10 36.6 C 91 H 12 181/86 H 02/26/22 06:13 36.6 C 74 18 145/78 H Pulse Ox O2 Del Method O2 Flow Rate 02/26/22 12:27 96 Nasal Cannula 1 02/26/22 12:02 97 Nasal Cannula 1 02/26/22 11:40 98 Nasal Cannula 2 02/26/22 11:30 95 Nasal Cannula 2 02/26/22 11:20 95 Nasal Cannula 2 02/26/22 11:10 96 Nasal Cannula 2 02/26/22 11:00 96 Nasal Cannula 2 02/26/22 10:50 99 Oxymask 4 02/26/22 10:40 100 Oxymask 4 02/26/22 10:30 99 Oxymask 4 02/26/22 10:20 100 Oxymask 6 02/26/22 10:10 100 Oxymask 10 02/26/22 06:13 96 Room Air Diagnostic Findings Cervical Spine X-Ray 02/26/22 07:45 FL cervical 2-3V CLINICAL HISTORY: C7-T1 ACDF C6 CORPECTOMY COMPARISON STUDY: None. FLUOROSCOPY TIME: 28 seconds. FINDINGS: 3 fluoroscopic spot images of the cervical spine demonstrate anterior cervical discectomy and fusion from C5 through T1. The hardware appears intact. Surgical sponge is noted at the surgical site. IMPRESSION: Fluoroscopic assistance provided for C5-T1 ACDF. ACT 112: Negative or not required by law. Electronically signed by: Osorio Cotton M.D. 02/26/2022 10:12 AM
[2022-02-26] MEDS ORDERED: GLUCAGON FOR INJ 1 MG VIAL SQ PRN (13:25)
[2022-02-26] MEDS ORDERED: GLUCOSE 10 TAB/TUBE PO PRN (13:25)
[2022-02-26] MEDS ORDERED: DEXTROSE 50% 50 ML SYRINGE IV PRN (13:25)
[2022-02-26] MEDS ORDERED: GLUCOSE 40% GEL 15 GM TUBE PO PRN (13:25)
[2022-02-26] MEDS ORDERED: CARBOHYDRATES FOR HYPOGLYCEMIA PO PRN (13:25)
--- NOTE | 2022-02-26 14:14 | Anesthesiology Progress Note ---
Date of Service February 26, 2022 Anesthesia Post Procedure Vital Signs Vital Signs: Temp Pulse Pulse Resp BP BP BP 02/26/22 13:52 98.2 F 76 18 130/78 02/26/22 13:00 98.6 F 62 18 124/79 02/26/22 12:38 57 L 18 02/26/22 12:27 65 18 142/84 H 02/26/22 12:02 98.6 F 64 18 140/80 02/26/22 11:40 56 L 12 150/70 H 02/26/22 11:30 56 L 12 148/73 H 02/26/22 11:20 58 L 20 146/80 H 02/26/22 11:10 67 18 139/75 02/26/22 11:00 98.2 F 61 12 156/84 H 02/26/22 10:50 59 L 12 166/89 H 02/26/22 10:40 62 13 157/84 H 02/26/22 10:30 69 18 134/87 02/26/22 10:20 62 12 168/85 H 02/26/22 10:10 97.9 F 91 H 12 181/86 H 02/26/22 06:13 97.9 F 74 18 145/78 H Pulse Ox O2 Del Method O2 Flow Rate 02/26/22 13:52 95 Nasal Cannula 1 02/26/22 13:00 96 Nasal Cannula 1 02/26/22 12:38 93 Nasal Cannula 1 02/26/22 12:27 96 Nasal Cannula 1 02/26/22 12:02 97 Nasal Cannula 1 02/26/22 11:40 98 Nasal Cannula 2 02/26/22 11:30 95 Nasal Cannula 2 02/26/22 11:20 95 Nasal Cannula 2 02/26/22 11:10 96 Nasal Cannula 2 02/26/22 11:00 96 Nasal Cannula 2 02/26/22 10:50 99 Oxymask 4 02/26/22 10:40 100 Oxymask 4 02/26/22 10:30 99 Oxymask 4 02/26/22 10:20 100 Oxymask 6 02/26/22 10:10 100 Oxymask 10 02/26/22 06:13 96 Room Air Pain Intensity Other: Pain Intensity: 1 Neck: Pain Intensity: 1 Transfer of Care Handoff Completed per policy Notes Mental Status: alert / awake / arousable and participated in evaluation Patient Amnestic to Procedure: Yes Nausea / Vomiting: adequately controlled Pain: adequately controlled Airway Patency, RR, SpO2: stable & adequate BP & HR: stable & adequate Hydration State: stable & adequate Anesthetic Complications: no major complications apparent and Pt Satisfied with anesthetic care
[2022-02-26] MEDS: CLINDAMYCIN 600 MG in DEXTROSE 5% 50 ML IV SCH (16:08)
[2022-02-26] MEDS: INSULIN ASPART PER UNIT SC SCH ×2 (17:46→21:49)
[2022-02-26] MEDS: ACETAMINOPHEN 500 MG TAB PO PRN (19:29)
[2022-02-26] MEDS ORDERED: DOCUSATE SODIUM/SENNA 50/8.6MG TAB PO SCH (21:00)
[2022-02-26] MEDS: traMADol HCL 50 MG TABLET PO PRN (21:01)
[2022-02-27] MEDS: CLINDAMYCIN 600 MG in DEXTROSE 5% 50 ML IV SCH (00:02)
[2022-02-27] MEDS: traMADol HCL 50 MG TABLET PO PRN (00:59)
[2022-02-27] MEDS ORDERED: POLYETHYLENE (MIRALAX) 17 GM PACK PO SCH (06:00)
[2022-02-27] MEDS: ACETAMINOPHEN 500 MG TAB PO PRN (08:06)
[2022-02-27 08:19] LABS: Estimated Average Glucose 120 mg/dl; Hemoglobin A1C 5.8 % (4.5-5.6)
[2022-02-27] MEDS ORDERED: CHOLECALCIFEROL 1,000 UNITS 25 MCG TAB PO SCH (09:00)
[2022-02-27] MEDS ORDERED: dexAMETHasone 8 MG in SYRINGE 0 ML IV SCH (09:00)
[2022-02-27] MEDS ORDERED: LANSOPRAZOLE 30 MG SOLTAB PO SCH (09:00)
[2022-02-27] MEDS ORDERED: CATAPLEX PO SCH (09:00)
[2022-02-27] MEDS ORDERED: LORATADINE 10 MG TAB PO SCH (09:00)
[2022-02-27] MEDS ORDERED: hydroCHLOROthiazide 25 MG TAB PO SCH (09:00)
[2022-02-27] MEDS ORDERED: ESCITALOPRAM OXALATE 20 MG TAB PO SCH (09:00)
[2022-02-27] MEDS ORDERED: FAMOTIDINE 20 MG TAB PO SCH (09:00)
--- NOTE | 2022-02-27 09:12 | Discharge Summary ---
Date of Service February 27, 2022 Principal Diagnosis Cervical spinal stenosis with radiculopathy Discharge Data Allergies Allergy/AdvReac Type Severity Reaction Status Date / Time lisinopril Allergy Severe EDEMA TO Verified 02/26/22 06:09 FACE/LIPS/TONGUE morphine Allergy Intermediate ITCHING Verified 02/26/22 06:09 vancomycin Allergy Intermediate RED, Verified 02/26/22 06:09 ITCHY--RED MAN'S Penicillins Allergy Mild FATIGUE/ Verified 02/26/22 06:09 trouble walking celecoxib Allergy Unknown PT Verified 02/26/22 06:09 REPORTED ALLERGY DURING HOSP STAY-REDNESS Consultations 02/26/22 12:02 Consult Hospitalist Routine Procedures Performed Operation Date: 02/26/22 07:45 Actual Procedures p C7-T1 Anterior Cervical Discectomy Fusion, C6 Corpectomy Spinal Cord Monitoring - Jaguar Lyons DO Ordered Studies 02/26/22 07:45 FL cervical 2-3V Routine Hospital Course (1) Cervical stenosis of spinal canal: Patient underwent anterior cervical corpectomy discectomy and fusion tolerated this well was taken to orthopedic for postoperative. Postop day 1 she was swallowing well. No hoarseness. Excellent strength testing. Ambulating well. Socially discharged home. Discharge orders instructions found in chart for further review. Total Time Total Time Spent Total Time Spent (In Minutes): 20 minutes Discharge Plan Discharge Items Patient Disposition: Home - Self-Care Reason For Visit: Spinal Stenosis, Cervical Regions Discharge Diagnosis: Cervical spinal stenosis with radiculopathy Activity: As commented below Non-emergency contact: Primary Care Provider Call non-emergency contact if: you have any medication questions Follow-up/Referrals: Anderson Nieves MD [Primary Care Provider] - Diet: Regular Addtl Attending Provider Instructions: ACTIVITY RECOMMENDATIONS: SELF CARE INSTRUCTIONS AFTER CERVICAL FUSIONS 1. No smoking. Smoking drastically decreases the chance of a solid fusion. 2. No bending, lifting more than 5 pounds, or twisting (roll like a log when turning in bed). 3. You may shower 3 days after surgery. Thoroughly dry wound. Do not soak in the tub. 4. Cervical collar: Must be worn at all times including sleeping. You may remove the brace only to bath, eat and if you are sitting in a recliner. 5. Please walk as much as you can for exercise. Gradually increase the distance that you walk as your endurance increases. SPECIAL CARE INSTRUCTIONS: VERY IMPORTANT TO READ AND REVIEW A. Do not take any anti-inflammatory medications (i.e. Indocin, Advil, Aspirin, Naprosyn, Aleve, Motrin, etc.) as these may inhibit the chance of a solid fusion. Tylenol is okay to take. B. Your surgical incision has been closed with a cosmetic suture under the skin that will dissolve in about 6 weeks. In 14 days, you can use a pair of clean scissors and cut the suture that is left outside of the skin at the ends of your incision. C. Complications are uncommon, but please contact us if you have any signs or symptoms of: 1. wound infection (fever higher than 102.5 degrees F, redness, separation of wound, drainage, or increasing pain from the incision) 2. blood clots in legs (pain, swelling, redness and warmth in legs) 3. urinary tract infection (fever higher than 102.5 degrees, burning upon urination or increased frequency of urination) 4. nerve problems (inability to walk on your toes or heels, numbness, loss of bowel or bladder control) 5. any other symptoms that concern you. D. Please call the office at if you have any concerns or questions about your operation or recovery. MANAGING PAIN AFTER SPINAL SURGERY 1. Narcotic medication is intended for short-term use and will be provided for surgical pain. Surgical pain usually lasts for a period of 4-6 weeks. Narcotic medication includes Percocet, Vicodin, Darvocet, Tylenol #3 or Lortab. 2. Longer-term pain is more appropriately treated with non-narcotic medication such as Tylenol ES. 3. Muscle spasm is not appropriately treated with narcotics. Muscle relaxers such as Soma, Flexeril or Skelaxin can be used along with Tylenol ES. 4. Remember that we all live with some "aches and pains". This is not unusual or uncommon after an injury or as we get older. 5. We will provide appropriate medication within the normal guidelines of their prescribed use. We will also be very cautious and aware of potential abuse and extended duration of patients' medication needs. 6. Please allow 2-3 days to process refills. Prescriptions will not be mailed but must be picked up at the office. FOLLOW UP VISIT: Keep your scheduled follow-up appointment. Any questions, please call the office at . Pending Studies at Discharge: No Stand-Alone Forms: My [facility], Smoking Cessation Medications and DC Order Prescriptions: New oxycodone 5 mg tablet 5 mg PO Q6H PRN (Reason: pain, severe) Qty: 20 0RF tramadol 50 mg tablet 50 mg PO Q6H PRN (Reason: pain, moderate) Qty: 30 0RF Continued fluticasone propionate [Flonase Allergy Relief] 50 mcg/actuation spray,suspension 2 spray intranasal DAILY PRN (Reason: Congestion) Rx Instructions: administer into each nostril loratadine 10 mg tablet 10 mg PO QAM meclizine 25 mg tablet 25 mg PO TID PRN (Reason: Vertigo) hydrochlorothiazide 25 mg tablet 25 mg PO QAM escitalopram oxalate [Lexapro] 20 mg tablet 20 mg PO QAM calcium carbonate-vitamin D3 [Calcium 600 + D(3)] 600 mg(1,500mg) -200 unit Tablet 1 tab PO QAM cimetidine 300 mg Tablet 300 mg PO QAM Boswellia Zaria 1 tab PO QAM lansoprazole 30 mg Capsule,Delayed Release(Dr/Ec) 30 mg PO QAM cholecalciferol (vitamin D3) [Vitamin D3] 25 mcg (1,000 unit) Tablet,Chewable 25 mcg PO DAILY Cataplex 1 dose PO DAILY Discontinued ibuprofen 200 mg Tablet 400 mg PO BID Discharge Orders: Discharge Order (Routine); Ordered 02/27/22 Ordered By: Jaguar Lyons Admission Data Admit Date/Time: 02/26/22 09:55 Attending Provider: Jaguar Lyons Admit Provider: Jaguar Lyons Primary Care Provider: Anderson Nieves Other Providers: Patti Singleton ; Theo Lucas ; Reanna Abbott
[2022-02-27] MEDS: INSULIN ASPART PER UNIT SC SCH (09:22)
--- NOTE | 2022-02-27 10:48 | Hospitalist Progress Note ---
Date of Service February 27, 2022 Assessment & Plan (1) Cervical stenosis of spinal canal: (2) Obstructive sleep apnea: (3) Obesity: (4) HTN (hypertension): (5) GERD (gastroesophageal reflux disease): (6) Vertigo: Plan Ms. Maty Perkins is a 57 year old female who is a patient of Dr. Lyons who presented to the [facility] with chronic persistent neck and arm symptoms that has since failed outpatient conservative management. She underwent a cervical corpectomy today. She has an additional PMH that includes: HTN, GERD, CHRISTIAN, vertigo and GERD. The [facility] were consulted for continued post-operative medical management. Cervical Stenosis of spinal canal POD #1: #1 anterior cervical corpectomy with bilateral foraminotomies C6. #2 anterior cervical discectomy with bilateral foraminotomies C7-T1. #3 anterior cervical arthrodesis C5-C7 and C7-T1. #4 placement of peek 21 mm cage C5-C7 and 9 mm cage C7-T1. #5 placement locally harvested morselized autograft combined with I factor and interbody cages. #6 application of henry plate and screws from C5-T1. EBL: 25mL ; ARTIS drain 55ml Pre-op Hgb on 02/12: 12.8 pain/wound management per ortho continue c collar Pt stable to be discharged to home today Pre-diabetes: a1c 5.8 today recommend diet and lifestyle modifications to prevent T2DM bsg stable Obstructive sleep apnea Obesity continue cpap at HS HTN elevated this morning and through stay, likely 2/2 to pain and situation continue HCTZ recommend close follow up with PCP Depression: Stable; continue Lexapro GERD Stable; continue Cimetidine and Lansoprazole Vertigo stable; continue Meclizine Allergic Rhinitis pt with very mild inferior periorbital swelling no conjunctival erythema or drainage or change in vision continue daily loratadine Disposition: D/C to home today PCP: Dr. Nieves Code Status: Full Code VTE Prophylaxis: TEDS and SCDs; otherwise defer to Ortho Plan to return home after DC Please contact [facility]ist via [place] Text 28/01 for any additional needs or if we can be of assistance. Pt was seen and examined in collaboration with Dr. Lucas, please see addendum Admission and Anticipated Discharge Date Admission Date: February 26, 2022 Supervising Physician Co-Signing Physician Notes I have seen and examined the patient and have discussed the case with the provider above. I agree with the assessment and plan as stated. She is doing well after the procedure. She is comfortably sitting up the chair. Her pain is well controlled with current regimen. She denies any fever, chills, chest pain, shortness of breath, abdominal pain or urinary symptoms. Subjective Patient was seen and examined in room 305-1. Follow-up cervical spine surgery. She is sitting up in bedside chair and just ate breakfast. She states yesterday postoperatively she had some right periorbital swelling. She feels were related to allergies. She did take her allergy medication this morning and feels her swelling has significantly improved. She does complain of some pain with swallowing but denies any difficulty swallowing. She denies any fever, chills, sweats, lightheadedness, dizziness, chest pain, shortness of breath, cough, nausea, vomiting, abdominal pain. She is passing flatus. Review of Systems Review of Systems: All systems reviewed & are unremarkable except as noted in HPI & below Physical Exam Physical Exam: Gen: WD/WN, NAD, A&O x3 HEENT: Normocephalic, atraumatic, conjunctivae moist, sclerae anicteric, mucous membranes moist. Neck: C collar in place, dressing with serosang drainage, ARTIS drain with serosang drainage Lung: Clear to Auscultation bilaterally, no wheezes/rales/rhonchi Heart: Regular rate, regular rhythm, no murmurs, rubs, or gallops Abdomen: Soft, NT, ND +BS x 4 Extremities: No edema Skin: Warm, no rash, negative turgor. Results & Data Results & Data ([facility]) Vital Signs (Past 12 Hours) Vital Signs Temp Pulse Pulse Resp BP Pulse Ox O2 Del Method 02/27/22 07:40 36.7 C 56 L 16 167/90 H 100 Room Air 02/27/22 05:17 36.4 C L 55 L 16 162/96 H 100 Nasal Cannula 02/27/22 03:10 60 18 99 Nasal Cannula 02/27/22 02:32 36.5 C 54 L 16 147/81 H 100 Nasal Cannula 02/27/22 00:32 36.7 C 74 16 147/86 H 100 Nasal Cannula 02/26/22 22:45 65 18 99 Nasal Cannula O2 Flow Rate 02/27/22 07:40 02/27/22 05:17 2 02/27/22 03:10 2 02/27/22 02:32 2 02/27/22 00:32 2 02/26/22 22:45 1 Laboratory Results a1c 5.8 Diagnostic Findings Cervical Spine X-Ray 02/26/22 07:45 FL cervical 2-3V CLINICAL HISTORY: C7-T1 ACDF C6 CORPECTOMY COMPARISON STUDY: None. FLUOROSCOPY TIME: 28 seconds. FINDINGS: 3 fluoroscopic spot images of the cervical spine demonstrate anterior cervical discectomy and fusion from C5 through T1. The hardware appears intact. Surgical sponge is noted at the surgical site. IMPRESSION: Fluoroscopic assistance provided for C5-T1 ACDF. ACT 112: Negative or not required by law. Electronically signed by: Osorio Cotton M.D. 02/26/2022 10:12 AM Medications Administered Current Inpatient Medications Acetaminophen (Acetaminophen 500 Mg Tab) 1,000 mg PO Q8H PRN PRN Reason: MILD Pain Scale 1,2,3 & Pre PT Stop: 03/28/22 12:01 Last Admin: 02/27/22 08:06 Dose: 1,000 mg Al Hydrox/Mg Hydrox/Simethicone (Aluminum/Magnesium Susp 30 Ml Udc) 30 ml PO Q6H PRN PRN Reason: Dyspepsia Stop: 03/28/22 12:01 Bisacodyl (Bisacodyl 10 Mg Supp) 10 mg MS DAILY PRN PRN Reason: Constipation Stop: 03/28/22 12:01 Dextrose (Dextrose 50% 50 Ml Syringe) 25 - 50 ml IV UD PRN; Protocol PRN Reason: Hypoglycemia Protocol Stop: 03/28/22 13:24 Diphenhydramine HCl (Diphenhydramine Capsule 25 Mg Cap) 25 mg PO Q6H PRN PRN Reason: Allergic Rhinitis/Insomnia Stop: 03/28/22 12:01 Epinephrine (Racepinephrine 2.25% Nebu Soln 0.5 Ml Vial) 0.5 ml INH NOW PRN PRN Reason: If stridor present Escitalopram Oxalate (Escitalopram Oxalate 20 Mg Tab) 20 mg PO QAM СВЕТЛАНА Stop: 03/29/22 08:59 Last Admin: 02/27/22 08:07 Dose: 20 mg Famotidine (Famotidine 20 Mg Tab) 20 mg PO QAM [facility]; Protocol Stop: 03/29/22 08:59 Last Admin: 02/27/22 08:07 Dose: 20 mg Famotidine (Famotidine 20 Mg Tab) 20 mg PO Q12H PRN PRN Reason: Dyspepsia Stop: 03/28/22 12:01 Fluticasone Propionate (Fluticasone Propionate Na Spr 16 Gm Btl) 2 sprays NA DAILY PRN PRN Reason: Congestion Stop: 03/28/22 12:01 Glucagon (Glucagon For Inj 1 Mg Vial) 1 mg SQ UD PRN; Protocol PRN Reason: Hypoglycemia Protocol Stop: 03/28/22 13:24 Glucose (Glucose 40% Gel 15 Gm Tube) 15 - 30 gm PO UD PRN; Protocol PRN Reason: Hypoglycemia Protocol Stop: 03/28/22 13:24 Glucose (Glucose 10 Tab/Tube) 4 - 8 tab PO UD PRN; Protocol PRN Reason: Hypoglycemia Treatment Stop: 03/28/22 13:24 Hydrochlorothiazide (Hydrochlorothiazide 25 Mg Tab) [facility] [place]: 03/29/22 08:59 Last Admin: 02/27/22 08:07 Dose: 25 mg Hydromorphone HCl (Hydromorphone Inj 0.5 Mg/0.5 Ml Syr) 0.5 mg IV Q3H PRN PRN Reason: MODERATE Pain (Scale 4,5,6) & Pre PT Stop: 03/12/22 12:01 Hydromorphone HCl (Hydromorphone Inj 1 Mg/Ml Syringe) 1 mg IV Q3H PRN PRN Reason: SEVERE Pain (Scale 7,8,9,10) Stop: 03/12/22 12:01 Hydroxyzine HCl (Hydroxyzine Hcl 25 Mg Tab) 25 mg PO Q8H PRN PRN Reason: Anxiety Stop: 03/28/22 12:01 Dexamethasone 8 mg/ Syringe 2 mls @ 1 mls/min IV DAILY СВЕТЛАНА Stop: 03/29/22 08:59 Last Admin: 02/27/22 08:07 Dose: 1 mls/min Dexamethasone 8 mg/ Syringe 2 mls @ 1 mls/min IV NOW PRN PRN Reason: If stridor present Promethazine HCl 12.5 mg/ (Sodium Chloride) 50.5 mls @ 202 mls/hr IV Q6H PRN PRN Reason: Nausea &/or Vomiting Stop: 03/28/22 12:01 Acetaminophen (Ofirmev) 1,000 mg in 100 mls @ 400 mls/hr IV Q8H PRN PRN Reason: Pain Rating 1-3 & Pre PT Stop: 02/27/22 12:02 Lorazepam 0.5 mg/ Syringe 0.5 mls @ 2 mls/min IV Q8H PRN PRN Reason: Sedation/Anxiety Stop: 03/28/22 12:01 Insulin Aspart (Insulin Aspart Per Unit) 0 units SC ACHS [facility] Stop: 03/28/22 16:29 Last Admin: 02/27/22 09:22 Dose: Not Given Lansoprazole (Lansoprazole 30 Mg Soltab) [facility] [place]: 03/29/22 08:59 Last Admin: 02/27/22 08:07 Dose: 30 mg Loratadine (Loratadine 10 Mg Tab) 10 mg PO [facility] Stop: 03/29/22 08:59 Last Admin: 02/27/22 08:07 Dose: 10 mg Lorazepam (Lorazepam 0.5 Mg Tab) 0.5 mg PO Q8H PRN PRN Reason: Sedation/Anxiety Stop: 03/28/22 12:01 Magnesium Hydroxide (Magnesium Hydroxide Susp 30 Ml Udc) 30 ml PO Q24H PRN PRN Reason: Constipation Stop: 03/28/22 12:01 Meclizine HCl (Meclizine Hcl 25 Mg Tab) 25 mg PO TID PRN PRN Reason: Vertigo Stop: 03/28/22 12:01 Metoclopramide HCl (Metoclopramide Hcl Inj 5 Mg/Ml 2 Ml Vial) 10 mg IV Q6H PRN PRN Reason: Nausea &/or Vomiting Stop: 03/28/22 12:01 Miscellaneous (Carbohydrates For Hypoglycemia ) 15 - 30 gm PO UD PRN PRN Reason: Hypoglycemia Protocol Stop: 03/28/22 13:24 Naloxone HCl (Naloxone Hcl 0.4 Mg/1 Ml Vial/Carp) 0.1 mg IV Q5M PRN PRN Reason: Oversedation/Resp depression Stop: 03/28/22 12:01 Ondansetron HCl (Ondansetron Inj 2 Mg/Ml 2 Ml Vial) 4 mg IV Q6H PRN PRN Reason: Nausea &/or Vomiting Stop: 03/28/22 12:01 Ondansetron HCl (Ondansetron 4 Mg Od Tab) 4 mg PO Q6H PRN PRN Reason: Nausea Stop: 03/28/22 12:01 Oxycodone HCl (Oxycodone Hcl Ir 5 Mg Tab (Immediate Release)) 5 - 10 mg PO Q4H PRN PRN Reason: Pain & Pre PT Stop: 03/12/22 12:01 Last Admin: 02/26/22 14:55 Dose: 5 mg Polyethylene Glycol (Polyethylene (Miralax) 17 Gm Pack) 17 gm PO Q6 СВЕТЛАНА Stop: 03/29/22 05:59 Last Admin: 02/27/22 05:22 Dose: 17 gm Senna/Docusate Sodium (Docusate Sodium/Senna 50/8.6mg Tab) 2 tab PO HS СВЕТЛАНА Stop: 03/28/22 20:59 Last Admin: 02/26/22 21:02 Dose: 2 tab Sodium Biphosphate/Sodium Phosphate (Sod Phosphate/Sod Biphosphate Enema 132 Ml Btl) 132 ml MS ONE PRN PRN Reason: Constipation Stop: 03/28/22 12:01 Tramadol HCl (Tramadol Hcl 50 Mg Tablet) 50 - 100 mg PO Q4H PRN PRN Reason: Moderate-Severe pain & Pre PT Stop: 03/28/22 12:01 Last Admin: 02/27/22 00:59 Dose: 100 mg Vitamin D (Cholecalciferol 1,000 Units 25 Mcg Tab) 1,000 units PO DAILY СВЕТЛАНА Stop: 03/29/22 08:59 Last Admin: 02/27/22 08:07 Dose: 1,000 units
== END 2022-02-27 12:19 | disposition home or self-care (01) ==
LOC: ASU 05:53 → INTOOBSV 09:55 → 3E 09:55

== ENCOUNTER 2024-12-28 07:29 | Inpatient (IN) ==
--- NOTE | 2024-12-08 15:19 | PAT Medication Instructions ---
Medication Instructions Date of Service December 08, 2024 Home Medications escitalopram oxalate 20 mg tablet (Lexapro) 20 mg PO QAM hydrochlorothiazide 25 mg tablet 25 mg PO QAM loratadine 10 mg tablet (Claritin) 10 mg PO QAM lansoprazole 30 mg capsule,delayed release (Prevacid) 30 mg PO QAM trazodone 50 mg tablet 50 mg PO HS calcium 250 mg tablet 250 mg PO QAM famotidine 40 mg tablet 40 mg PO HS ibuprofen 200 mg tablet 1,600 - 2,400 mg PO Q6H PRN Pain metformin 500 mg tablet,extended release 24 hr 500 mg PO QPM tirzepatide (weight loss) 7.5 mg/0.5 mL subcutaneous solution 7.5 mg subcut WK vitamin D3 250 mcg (10,000 unit)-vitamin K2 45 mcg capsule 1 cap PO QAM MEDICATION INSTRUCTIONS: ASK your surgeon for instructions ibuprofen 200 mg tablet 1,600 - 2,400 mg PO Q6H PRN Pain DO NOT take the morning of surgery hydrochlorothiazide 25 mg tablet 25 mg PO QAM loratadine 10 mg tablet (Claritin) 10 mg PO QAM calcium 250 mg tablet 250 mg PO QAM vitamin D3 250 mcg (10,000 unit)-vitamin K2 45 mcg capsule 1 cap PO QAM Take morning of surgery With a small sip of water, OTHERWISE NOTHING TO EAT OR DRINK AFTER MIDNIGHT: escitalopram oxalate 20 mg tablet (Lexapro) 20 mg PO QAM lansoprazole 30 mg capsule,delayed release (Prevacid) 30 mg PO QAM Take evening before surgery metformin 500 mg tablet,extended release 24 hr 500 mg PO QPM trazodone 50 mg tablet 50 mg PO HS famotidine 40 mg tablet 40 mg PO HS Other Notes As discussed during RN phone call, last dose to be 12/19/24 of: tirzepatide (weight loss) 7.5 mg/0.5 mL subcutaneous solution 7.5 mg subcut WK If you have any questions please call us at [phone] or [phone] or [phone] or [phone]
--- NOTE | 2024-12-14 15:20 | Anesthesiology Consultation ---
Date of Service December 14, 2024 Assessment & Plan (1) Encounter for pre-operative examination: - Check BSG DOS - Infectious disease screening: Per assessment on 12/14/24- No known recent infectious disease contacts or current infectious disease symptoms. - GLP-1 medication instructions: Patient informed by PAT to stop 7 days prior to surgery- voiced understanding. DOS 12/28. Advised last dose to be 12/19. - PCP visit (12/15/24): "Feel patient is acceptable risk for proposed surgery, no further cardiac work up needed prior ot OR.. would continue cpap perioperatively.. No symptoms but wbc, likely contaminated, will repeat prior to surgery" - Awaiting PCP-ordered repeat UA (S/Dr. Nieves). Patient otherwise acceptable risk for surgery. Chart Review Chart Review: Patient seen in Pre Admission Testing Teaching & Discussion Pre-Anesthesia Teaching/Discussion Notes: Instructed NPO after midnight before surgery,except medications with 15 cc of water. Medication instructions provided according to the PAT guidelines. History Surgery Operation Date: 12/28/24 10:05 Proposed Procedures p Hardware Removal L4-L5, Decompression L3-L4, L5-S1 Fusion, L3-S1, Spinal Cord Monitoring - Jaguar Lyons, Height/Weight Height: 5 ft 3.5 in Weight: 134.5 kg Allergies Allergy/AdvReac Type Severity Reaction Status Date / Time lisinopril Allergy Severe Face, Verified 12/04/24 15:37 Lips, Tongue Edema vancomycin Allergy Severe Red Man Verified 12/04/24 15:37 Syndrome celecoxib Allergy Intermediate "skin Verified 12/04/24 15:37 turned pinkish" morphine Allergy Intermediate Itchiness Verified 12/04/24 15:37 silver Allergy Intermediate Itchiness, Verified 12/04/24 15:38 Redness Penicillins AdvReac Intermediate Fatigue/Trouble Verified 12/04/24 15:37 Walking Medications Home Medications Medication Instructions Recorded Confirmed Last Taken escitalopram oxalate 20 mg tablet 20 mg PO QAM 05/24/19 12/04/24 07/18/23 (Lexapro) hydrochlorothiazide 25 mg tablet 25 mg PO QAM 05/24/19 12/04/24 07/18/23 loratadine 10 mg tablet (Claritin) 10 mg PO QAM 05/24/19 12/04/24 07/18/23 lansoprazole 30 mg capsule,delayed 30 mg PO QAM 02/07/22 12/04/24 07/18/23 release (Prevacid) trazodone 50 mg tablet 50 mg PO HS 07/19/23 12/04/24 07/18/23 calcium 250 mg tablet 250 mg PO QAM 12/04/24 12/04/24 Unknown famotidine 40 mg tablet 40 mg PO HS 12/04/24 12/04/24 Unknown ibuprofen 200 mg tablet 1,600 - 2,400 mg PO Q6H PRN Pain 12/04/24 12/04/24 Unknown metformin 500 mg tablet,extended 500 mg PO QPM 12/04/24 12/04/24 Unknown release 24 hr tirzepatide (weight loss) 7.5 8.5 mg subcut WK 12/04/24 12/14/24 11/28/24 mg/0.5 mL subcutaneous solution vitamin D3 250 mcg (10,000 1 cap PO QAM 12/04/24 12/04/24 Unknown unit)-vitamin K2 45 mcg capsule Past Medical History Medical History (Updated 12/14/24 @ 15:49 by Kadi Nieto) Chronic cough Constipation R/t tirzepatide per patient Degenerative disc disease Depression Frequent headaches GERD (gastroesophageal reflux disease) Hiatal hernia History of anemia No blood transfusion/iron infusion hx History of COVID-19 06/2021: congestion, fatigue, GI upset 05/2023: congestion, cough, nausea, diarrhea > resolved 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 Occasional headaches/facial numbness, at baseline Hx of migraines Hypertension Insomnia Nocturnal hypoxemia 2L O2 HS with CPAP [facility] Prediabetes Oral/Weekly Inj Pulmonary hypertension Sleep apnea 2L O2 HS with CPAP [facility] 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 patient Trigeminal nerve disorder Vertigo Intermittent episodes Exercise / Class Metabolic Activity III < 4 Walking/Shop/Light housework Past Family History Family History Father Colorectal cancer Mother Diabetes Hypertension Brother Cancer of kidney Past Surgical History Surgical History History of arthroplasty of knee Right x3, left x1 History of cardiac cath 2016 ([facility])- "normal coronary arteries" History of cataract surgery Left History of colonoscopy History of dilatation and curettage History of esophagogastroduodenoscopy (EGD) History of hysterectomy History of laparoscopy several History of lumbar surgery x2 History of surgery on left wrist hardware present History of tonsillectomy History of tooth extraction History of wisdom tooth extraction Hx of fusion of cervical spine (02/2022) Past Anesthesia History No Hx of Anesthesia Complications and No Family Hx of Anesthesia Complications History of PONV No Hx of PONV and Hx of Motion Sickness Social History Smoking Status: Never smoker Do You Dip or Chew Tobacco: No Hx Alcohol Use: No Alcohol type: wine and hard liquor alcohol intake frequency: a few times a month Hx Substance Use: No substance use type: does not use Review of Systems Chronic cough, at baseline. Patient denies chest pain, shortness of breath, fever, chills, wheezing, palpitations. Physical Exam Vital Signs BP 124/80 P 64 TEMP 98.1 SP02 95%RA RESP 16 Physical Full cervical extension range of motion. Full TMJ range of motion. TMD > 3.5 finger breaths Mallampati Score II Dentition: intact, upper left side cap Lungs: clear throughout to auscultation Cardiac: regular rate and rhythm, no murmurs noted Spine: normal Carotid arteries: negative bruit Extremities: no LE edema Lab Results Anesthesia Preop Results Results Anesthesia Widget: WBC 9.15 K/ul (4.8-10.8) 12/14/24 Hgb 12.8 g/dl (12.0-16.0) 12/14/24 Hct 38.2 % (37.0-47.0) 12/14/24 Plt 322 K/uL (130-400) 12/14/24 Na 138 mmol/L (136-145) 12/14/24 K 3.6 mmol/L (3.5-5.1) 12/14/24 Cl 101 mmol/L (98-107) 12/14/24 CO2 31 mmol/L (21-32) 12/14/24 BUN 17 mg/dl (6-23) 12/14/24 Creat 1.07 mg/dl (0.6-1.2) 12/14/24 Glucose Level 83 mg/dl (70-99(Fasting)) 12/14/24 PT 10.9 Seconds (9.0-12.0) 12/14/24 PTT 30 Seconds (21-31) 12/14/24 INR 1.0 (0.9-1.1) 12/14/24 HA1c 5.7 % (4.5-5.6) H 12/14/24 Urine Color Yellow 12/14/24 Urine Appearance Clear (Clear) 12/14/24 Urine pH 6.0 (4.5-7.5) 12/14/24 Urine Specific Latty 1.030 (1.000-1.030) 12/14/24 Urine Protein Negative (Negative) 12/14/24 Urine Glucose (UA) Negative (Negative) 12/14/24 Urine Ketones Trace (Negative) H 12/14/24 Urine Blood Negative (Negative) 12/14/24 Urine Nitrite Negative (Negative) 12/14/24 Urine Bilirubin Negative (Negative) 12/14/24 Urine Urobilinogen Negative (Negative) 12/14/24 Urine Leukocyte Esterase 1+ (Negative) H 12/14/24 Urine WBC (Auto) 6-10 /hpf (0-5) H 12/14/24 Urine RBC (Auto) 0-2 /hpf (0-2) 12/14/24 Urine Hyaline Casts (Auto) 0-2 /lpf (0-2) 12/14/24 Urine Epithelial Cells (Auto) 3-5 /hpf (0-2) H 12/14/24 Urine Bacteria (Auto) None Seen (None Seen) 12/14/24 Blood Type B Positive 12/14/24 Antibody Screen NEGATIVE 12/14/24 Testing Electrocardiogram Date: 12/14/24 NSR at 67bpm. "Normal ECG" Chest X-Ray Date: 12/14/24 Findings: + NAD Echocardiogram Date: 02/24/24 LVEF 55-59%. LV wall motion is normal. Mildly increased cLV wall thickness. Mild RVD/RAD. Moderate TR. Estimated PASP 40-50mmhg (reviewed by PCP/pulm and decision for nighttime oxygen addition).
[~2024-12-28 07:29] MED LIST changes: +DEXAMETHASONE SOD INJ 4 MG/ML VIAL ONE; +GLYCOPYRROLATE 0.2 MG/ML VIAL ONE; +LIDOCAINE 2% 2 ML VIAL/AMP(20MG/ML) INFIL ONE; +MIDAZOLAM HCL 1 MG/ML 2ML VIAL ONE; +Nursing to Pharmacy Communication SCH; +ONDANSETRON INJ 2 MG/ML 2 ML VIAL ONE; +PHENYLEPHRINE HCL 10 MG/ML VIAL ONE; +PROPOFOL IV EMULSION 10 MG/ML 20 ML VIAL IV ONE; +ROCURONIUM BROMIDE 10 MG/ML 5 ML VIAL IV ONE; +SUGAMMADEX SODIUM 200 MG/2 ML VIAL IV ONE; +fentaNYL citrate PF 100 MCG/2 ML VIAL ONE
--- NOTE | 2024-12-28 07:38 | History & Physical Bridge Note ---
Date of Service December 28, 2024 History & Physical Bridge Note I have examined the patient, reviewed the History & Physical and in the interval since the performance of the History & Physical I have noted the following changes of clinical significance: no changes noted
--- NOTE | 2024-12-28 07:39 | History & Physical Report ---
Date of Service December 28, 2024 Assessment & Plan (1) Other spondylosis with radiculopathy, lumbar region: Plan: Hardware removal L4-L5 decompression L3-L4, L4 L5-S1, fusion L3-S1 History of Present Illness Chief Complaint: Back and bilateral leg pain Primary Care Provider: Anderson Nieves MD This is a 51-year-old female presents chronic persistent back and bilateral leg pain after failing course of nonoperative care she is here for surgical invention. Allergies Allergy/AdvReac Type Severity Reaction Status Date / Time lisinopril Allergy Severe Face, Verified 12/24/24 11:07 Lips, Tongue Edema vancomycin Allergy Severe Red Man Verified 12/24/24 11:07 Syndrome celecoxib Allergy Intermediate "skin Verified 12/24/24 11:07 turned pinkish" morphine Allergy Intermediate Itchiness Verified 12/24/24 11:07 silver Allergy Intermediate Itchiness, Verified 12/24/24 11:07 Redness Penicillins AdvReac Intermediate Fatigue/Trouble Verified 12/24/24 11:07 Walking Home Medications Medication Instructions Recorded Confirmed Type escitalopram oxalate 20 mg tablet 20 mg PO QAM 05/24/19 12/24/24 History (Lexapro) hydrochlorothiazide 25 mg tablet 25 mg PO QAM 05/24/19 12/24/24 History loratadine 10 mg tablet (Claritin) 10 mg PO QAM 05/24/19 12/24/24 History lansoprazole 30 mg capsule,delayed 30 mg PO QAM 02/07/22 12/24/24 History release (Prevacid) trazodone 50 mg tablet 50 mg PO HS 07/19/23 12/24/24 History calcium 250 mg tablet 250 mg PO QAM 12/04/24 12/24/24 History famotidine 40 mg tablet 40 mg PO HS 12/04/24 12/24/24 History ibuprofen 200 mg tablet 1,600 - 2,400 mg PO Q6H PRN Pain 12/04/24 12/24/24 History metformin 500 mg tablet,extended 500 mg PO QPM 12/04/24 12/24/24 History release 24 hr tirzepatide (weight loss) 7.5 8.5 mg subcut WK 12/04/24 12/24/24 History mg/0.5 mL subcutaneous solution vitamin D3 250 mcg (10,000 1 cap PO QAM 12/04/24 12/24/24 History unit)-vitamin K2 45 mcg capsule Past Med/Surg History Problem List (Updated 12/28/24 @ 07:38 by Jaguar Lyons DO) Other spondylosis with radiculopathy, lumbar region Pulmonary hypertension Severe obstructive sleep apnea Nocturnal hypoxemia HTN (hypertension) Cervical stenosis of spinal canal Encounter for pre-operative examination GERD (gastroesophageal reflux disease) Obesity Insomnia Lumbar stenosis with neurogenic claudication (Acute 03/10/14) Medical History (Updated 12/28/24 @ 07:38 by Jaguar Lyons DO) Nocturnal hypoxemia 2L O2 HS with CPAP [facility] Constipation R/t tirzepatide per patient Prediabetes Oral/Weekly Inj History of anemia No blood transfusion/iron infusion hx Hx of migraines Frequent headaches Chronic cough Insomnia Hypertension GERD (gastroesophageal reflux disease) 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 Occasional headaches/facial numbness, at baseline History of COVID-19 06/2021: congestion, fatigue, GI upset 05/2023: congestion, cough, nausea, diarrhea > resolved Vertigo Intermittent episodes Degenerative disc disease Hiatal hernia Depression Sleep apnea 2L O2 HS with CPAP [facility] Surgical History History of wisdom tooth extraction History of lumbar surgery x2 Hx of fusion of cervical spine (02/2022) History of surgery on left wrist hardware present History of esophagogastroduodenoscopy (EGD) History of cataract surgery Left History of cardiac cath 2017 ([facility])- "normal coronary arteries" History of laparoscopy several History of hysterectomy History of arthroplasty of knee Right x3, left x1 History of tonsillectomy History of tooth extraction History of dilatation and curettage History of colonoscopy Family History Father Colorectal cancer Mother Diabetes Hypertension Brother Cancer of kidney Social History Smoking Status: Never smoker Second Hand Exposure: No; Do You Dip or Chew Tobacco: No; Tobacco Cessation Education Requested by Patient: No Hx Alcohol Use: No Hx Substance Use: No Preferred Language: Zimbabwean Communication Ability: Effective Senior Site Manager Required: No Beliefs That Will Affect Care: None marital status: / Current Living Situation: Alone Other Information That Helps Us Care for You: No Feels Safe at Home: Yes Safety Concerns: Feels Safe At This Time Assistive Devices: Cane, Glasses and Other Assistive Devices Comment: x1 Dental Cap Physical Exam Physical Exam: Patient is alert and oriented heart regular rhythm Lungs clear
[2024-12-28] MEDS: ACETAMINOPHEN 500 MG TAB PO SCH (08:00)
[2024-12-28] MEDS ORDERED: PROMETHAZINE HCL 6.25 MG in SODIUM CHLORIDE 0.9% 50 ML IV PRN (08:01)
[2024-12-28] MEDS ORDERED: ATROPINE SULFATE 0.1 MG/ML 10ML SYR IV PRN (08:01)
[2024-12-28] MEDS ORDERED: ONDANSETRON INJ 2 MG/ML 2 ML VIAL IV PRN ×2 (08:01→12:55)
[2024-12-28] MEDS: GABAPENTIN 600 MG DOSE PO SCH (08:01)
[2024-12-28] MEDS ORDERED: ePHEDrine sulfate 50 MG/ML AMP IV PRN (08:01)
[2024-12-28] MEDS ORDERED: HYDROmorphone INJ 2 MG/ML SYR/VIAL IV PRN (08:01)
[2024-12-28] MEDS: LR 15ML/HR IV SCH (08:02)
[2024-12-28] MEDS: CLINDAMYCIN/D5W 900 MG/50 ML BAG IV SCH (08:14)
[2024-12-28] MEDS: BUPIVACAINE/EPINEPHRINE 0.25% 1:200,000 30 ML VIAL ONE (08:40)
[2024-12-28] MEDS ORDERED: fentaNYL citrate PF 100 MCG/2 ML VIAL ONE (09:14)
[2024-12-28] MEDS ORDERED: ROCURONIUM BROMIDE 10 MG/ML 5 ML VIAL IV ONE (11:04)
[2024-12-28] MEDS: ceFAZolin 330 MG/ML 1 GM VIAL ONE (11:13)
[2024-12-28] MEDS: FLOSEAL HEMOSTATIC MATRIX 10ML TOP ONE (11:15)
--- NOTE | 2024-12-28 11:24 | Operative Report ---
Post Operative Report Pre & Post Diagnosis Operation Date: 12/28/24 09:05 Pre-Op Diagnosis: #1 multilevel lumbar spondylosis with radiculopathy #2 lumbar spondylolisthesis with radiculopathy #3 lumbar spinal stenosis #4 morbid obesity Post-Op Diagnosis: Same I identified the patient and participated in the time-out.: Yes Procedure Operation Date: 12/28/24 09:05 Actual Procedures #1 removal of posterior instrumentation L4-5. #2 exploration of fusion L4-5. #3 lumbar decompression with bilateral medial facetectomies and foraminotomies L2-L3, L3-L4 and L5-S1. #4 posterior spinal fusion L3-L4 L5-S1. #5 placement posterior instrumentation L3-S1. #6 interbody fusion L3-L4 L4-5. #7 placement Spira 11 x 26 mm x 2 at L3-L4 and 10 x 26 mm x 2 at L5-S1. #8 placement locally harvested morselized graft posterior gutters. #9 placement infuse collagen sponge, with Koros in the posterior lateral gutters and os design interbody space. #10 application of versa wrap over the exposed dura. Surgeon Jaguar Lyons, DO Supervisor Pressing Department Christoph Corbett Estimated Blood Loss 700 Findings See Below The patient is 5 foot 3 weighing 135 kg with a BMI in excess of 51. The patient's body habitus did contribute to significant technical difficulty required deepest retractors longer instruments in order to perform procedure. Positioning exposure and the procedure itself at least 50% increased operative time. I am recommending a modifier 22. Specimens None Indications This is a 59-year-old female with episodes above-mentioned diagnosis after failing course of nonoperative care is here for surgical invention. Description of Procedure Patient was met with identified informed consent obtained. Patient was then taken to the operative suite underwent intubation placed in a prone position on the [facility] frame. All bony prominences well-padded eyes inspected to ensure no external precipice upon the. This point the lumbar spine was prepped and draped in normal sterile fashion. Sharp dissection with the assistance of Bovie cautery performed down to exposing the lamina and transverse processes of L3 instrumentation at L4-L5 and the lamina and transverse processes of L5 and the sacral ala bilaterally. I then proceeded to remove the hardware bilaterally explored the fusion mass noting to be mature and intact. Then performed a complete laminectomy of L5 with bilateral medial facetectomies and foraminotomies addressing severe neural compression. And then proceeded to L3- L4 and again a complete laminectomy was performed including bilateral medial facetectomies and foraminotomies addressing severe neural compression and lastly partial laminectomy L2 with bilateral medial facetectomies to address all subarticular stenosis. Pedicle screws were then placed in the 3 L4-L5 and S1 levels bilaterally with assistance of fluoroscopy and appropriate size maine contoured and placed. By way of a transforaminal approach on the right a discectomy of L5-S1 was performed endplates created to subcortical bleeding bone and a 10 x 26 mm spiral cage tapped in position. Then proceeded to the left transforaminal region at L5-S1. Again discectomy performed. Endplates guided to subcortically bone. And a second 10 x 26 mm spiral cage tapped into position. Then proceeded L3-L4 and bilateral transforaminal approach on the left discectomy performed. Endplates guided distal cortical main bone. A 11 x 26 mm spiral cage tapped in position. I then proceeded to the right transforaminal region. Again discectomy performed. Endplates guided to subcortically bone and a second 11 x 26 mm spiral cage tapped into position. Noted all cages were filled with os design bone graft. The rods were then locked in a final position bilaterally. The transverse processes of L3-L4-L5 and the sacral ala burred to subcortical bone. Infuse collagen sponge, with Koros and local autograft placed in posterior gutters. Versa wrap placed over the exposed dura. 15 round ARTIS drain inserted. The incision was then closed with 1 Vicryl fascia 2-0 Vicryl subcutaneously and 4 Monocryl for final skin closure. Steri-Strips and sterile dressing placed. Patient waken taken to PACU in stable condition. Please note Christoph record was present at the entire procedure and while the patient positioning complex portion of the surgery and final skin closure. I attest to the content of the Intraoperative Record and any orders documented therein. Any exceptions are noted below.
[2024-12-28] MEDS: fentaNYL citrate PF 100 MCG/2 ML VIAL IV PRN (12:13)
--- NOTE | 2024-12-28 12:23 | Fluoroscopy Report ---
FL lumbar spine 2-3V CLINICAL HISTORY: DECOMP AND FUSION COMPARISON STUDY: None FLUOROSCOPY TIME: 30 seconds FLUOROSCOPY IMAGES: 5 EXPOSURE DOSE: 36 mGy FINDINGS: Fluoroscopy was provided for lumbar surgery. IMPRESSION: Intraoperative fluoroscopy. ACT 112: Negative or not required by law. Electronically signed by: Oracio Otoole M.D. 12/28/2024 12:22 PM
[2024-12-28] MEDS ORDERED: HYDROmorphone INJ 1 MG/ML SYRINGE IV PRN (12:55)
[2024-12-28] MEDS ORDERED: hydrOXYzine HCl 25 MG TAB PO PRN (12:55)
[2024-12-28] MEDS ORDERED: bisacodyL 10 MG SUPP PR PRN (12:55)
[2024-12-28] MEDS ORDERED: PHARMACY GLYCEMIC MGMT CONSULT PRN (12:55)
[2024-12-28] MEDS ORDERED: SOD PHOSPHATE/SOD BIPHOSPHATE ENEMA 132 ML BTL PR PRN (12:55)
[2024-12-28] MEDS ORDERED: NALOXONE HCL 0.4 MG/1 ML VIAL/CARP IV PRN (12:55)
[2024-12-28] MEDS ORDERED: diphenhydrAMINE Capsule 25 MG CAP PO PRN (12:55)
[2024-12-28] MEDS ORDERED: ONDANSETRON 4 MG OD TAB PO PRN (12:55)
[2024-12-28] MEDS ORDERED: DO NOT ADMINISTER PNEUMOCOCCAL VACCINE PRN (12:55)
[2024-12-28] MEDS ORDERED: METOCLOPRAMIDE HCL INJ 5 MG/ML 2 ML VIAL IV PRN (12:55)
[2024-12-28] MEDS ORDERED: LORazepam 2 MG/1 ML VIAL IV PRN (12:55)
[2024-12-28] MEDS ORDERED: PROMETHAZINE 12.5 MG/50.5 ML BAG IV PRN (12:55)
[2024-12-28] MEDS ORDERED: FAMOTIDINE 20 MG TAB PO PRN (12:55)
[2024-12-28] MEDS ORDERED: DO NOT ADMINISTER FLU VACCINE PRN (12:55)
[2024-12-28] MEDS ORDERED: LORazepam 0.5 MG TAB PO PRN (12:55)
[2024-12-28] MEDS ORDERED: ALUMINUM/MAGNESIUM SUSP 30 ML UDC PO PRN (12:55)
[2024-12-28] MEDS ORDERED: ACETAMINOPHEN 1,000 MG/100 ML VIAL IV PRN (12:55)
[2024-12-28] MEDS: oxyCODONE HCL IR 5 MG TAB (IMMEDIATE RELEASE) PO PRN (13:15)
[2024-12-28] MEDS: LR 60ML/HR IV SCH (13:34)
--- NOTE | 2024-12-28 13:34 | Anesthesiology Progress Note ---
Date of Service December 28, 2024 Anesthesia Post Procedure Vital Signs Vital Signs: Temp Pulse Pulse Resp BP BP Pulse Ox 12/28/24 13:25 36.4 C L 60 16 95/53 L 91 12/28/24 12:58 101/55 L 12/28/24 12:50 36.5 C 70 16 90/51 L 94 12/28/24 12:35 36.4 C L 75 12 112/60 95 12/28/24 12:25 64 12 113/58 L 100 12/28/24 12:15 73 14 124/71 100 12/28/24 12:05 81 12 136/80 100 12/28/24 11:55 85 17 134/83 100 12/28/24 11:48 36.0 C L 82 12 114/68 93 12/28/24 07:35 12/28/24 07:35 36.7 C 76 22 115/64 93 O2 Del Method O2 Flow Rate 12/28/24 13:25 Nasal Cannula 4 12/28/24 12:58 12/28/24 12:50 Nasal Cannula 2 12/28/24 12:35 Nasal Cannula 2 12/28/24 12:25 Oxymask 5 12/28/24 12:15 Oxymask 5 12/28/24 12:05 Oxymask 10 12/28/24 11:55 Oxymask 10 12/28/24 11:48 Oxymask 6 12/28/24 07:35 Room Air 12/28/24 07:35 Room Air Pain Intensity Lower Back: Pain Intensity: 5 Transfer of Care Handoff Completed per policy Notes Mental Status: alert / awake / arousable Patient Amnestic to Procedure: Yes Nausea / Vomiting: adequately controlled Pain: adequately controlled Airway Patency, RR, SpO2: stable & adequate BP & HR: stable & adequate Hydration State: stable & adequate Anesthetic Complications: no major complications apparent
--- NOTE | 2024-12-28 14:47 | Consultation ---
Date of Consultation December 28, 2024 Assessment & Plan (1) Other spondylosis with radiculopathy, lumbar region: Patient is a 59 year old F with a past medical history of mild CAD, HTN, Pulmonary HTN 2/2 Severe CHRISTIAN, moderate tricuspid valve regurgitation, prediabetes depression presenting with post-operative medical management following spinal fusion and decompression. Patient received #1 removal of posterior instrumentation L4-5; #2 lumbar decompression with bilateral medial facetectomies and foraminotomies L2-L3, L3-L4 and L5-S1; #3 posterior spinal fusion L3-L4 L5-S1; #4 placement posterior instrumentation L3-S1; #5 interbody fusion L3-L4 L4-5. Spondylosis with radiculopathy s/p Hardware removal L4-L5 decompression L3-L4, L4 -L5-S1, fusion L3-S1 #Lumbar spinal stenosis #Morbid obesity * POD#0 s/p Hardware removal L4-L5 decompression L3-L4, L4 -L5-S1, fusion L3-S1with Dr. Lyons * Cefazolin post-op * Dexamethasone Daily x 3- to start post-op * Pre-op H&H 12.8/38.2; Trend with AM labs * EBL 700 ml; monitor ARTIS drain output * Continue IV fluid replacement at 60 ml/hr for now- BP soft post-op 88/55 * Per ortho for pain control--> Acetaminophen (mild); Oxycodone (mod-severe); Tramadolol (mod-severe); Hydromorphone (mod-severe) * Wound care per Ortho * Not on anti-coagulation at home- SCDs post-operatively * Encourage incentive spirometry Q1-4 while awake * Clear diet and advance as tolerated * Bowel regimen while on pain meds * PT/OT when appropriate * Remove obrien when appropriate #Hypertension * Goal 130/80 * Hold home HCTZ for now * Trend BP's #Pulmonary HTN 2/2 Severe CHRISTIAN #Nocturnal hypoxemia * Per Epic from 04/2024-Nocturnal oximetry showed residual hypoxia despite CPAP therapy, 3 LPM oxygen being added to CPAP * Patient reports needing 2 LPM oxygen support with CPAP at night d/t recent w eight loss * With home CPAP- resume nightly while inpatient- ordered #Prediabetes * Home metformin on hold * A1C 6.2 in April 2024 #GERD * Continue home management of Pepcid and PPI Thank you for this consultation. We will follow the patient with you during their hospital stay. You can reach a member of the [facility]ist Team 28/01 via Stuffle. DVT Ppx: SCD's Teds Code status: Full PCP: Dr. Nieves Dispo: Admit to Ortho Patient seen in collaboration with Dr. Estevez. Please see addendum.I spent a total 35 minutes minutes coordinating, documenting and providing care for this patient excluding time spent in the performance of separately billed services or time spent by another provider/QHP. (2) HTN (hypertension): (3) Nocturnal hypoxemia: (4) Severe obstructive sleep apnea: (5) Pulmonary hypertension: (6) GERD (gastroesophageal reflux disease): History of Present Illness Attending Physician: Jaguar Lyons DO History of Present Illness Patient is a 59 year old F with a past medical history of mild CAD, HTN, Pulmonary HTN 2/2 Severe CHRISTIAN, moderate tricuspid valve regurgitation, prediabetes depression presenting with post-operative medical management following spinal fusion and decompression. Patient received #1 removal of posterior instrumentation L4-5; #2 lumbar decompression with bilateral medial facetectomies and foraminotomies L2-L3, L3-L4 and L5-S1; #3 posterior spinal fusion L3-L4 L5-S1; #4 placement posterior instrumentation L3-S1; #5 interbody fusion L3-L4 L4-5. Denies fever, chills, numbness, tingling,headache, cognitive changes, vision/hearing changes, chest pain, SOB, swelling, difficulty breathing, urinary concerns, N/V/D, joint swelling/pain, skin rashes, lesions, bleeding, bruising. History obtained primarily from the patient and via hospitalization record. External chart review obtained from [facility]. Allergies Allergy/AdvReac Type Severity Reaction Status Date / Time lisinopril Allergy Severe Face, Verified 12/28/24 07:56 Lips, Tongue Edema vancomycin Allergy Severe Red Man Verified 12/28/24 07:56 Syndrome celecoxib Allergy Intermediate "skin Verified 12/28/24 07:56 turned pinkish" morphine Allergy Intermediate Itchiness Verified 12/28/24 07:56 silver Allergy Intermediate Itchiness, Verified 12/28/24 07:56 Redness Penicillins AdvReac Intermediate Fatigue/Trouble Verified 12/28/24 07:56 Walking Home Medications Medication Instructions Recorded Confirmed Type escitalopram oxalate 20 mg tablet 20 mg PO QAM 05/24/19 12/28/24 History (Lexapro) hydrochlorothiazide 25 mg tablet 25 mg PO QAM 05/24/19 12/28/24 History loratadine 10 mg tablet (Claritin) 10 mg PO QAM 05/24/19 12/28/24 History lansoprazole 30 mg capsule,delayed 30 mg PO QAM 02/07/22 12/28/24 History release (Prevacid) trazodone 50 mg tablet 50 mg PO HS 07/19/23 12/28/24 History calcium 250 mg tablet 250 mg PO QAM 12/04/24 12/28/24 History famotidine 40 mg tablet 40 mg PO HS 12/04/24 12/28/24 History ibuprofen 200 mg tablet 1,600 - 2,400 mg PO Q6H PRN Pain 12/04/24 12/28/24 History metformin 500 mg tablet,extended 500 mg PO QPM 12/04/24 12/28/24 History release 24 hr tirzepatide (weight loss) 7.5 8.5 mg subcut WK 12/04/24 12/24/24 History mg/0.5 mL subcutaneous solution vitamin D3 250 mcg (10,000 1 cap PO QAM 12/04/24 12/28/24 History unit)-vitamin K2 45 mcg capsule oxycodone 5 mg tablet 5 mg PO Q6H PRN pain #30 tabs 12/28/24 Rx tramadol 50 mg tablet 50 mg PO Q6H PRN pain, moderate 12/28/24 Rx #30 tabs Patient History Medical History Nocturnal hypoxemia 2L O2 HS with CPAP [facility] Pulm Constipation R/t tirzepatide per patient Prediabetes Oral/Weekly Inj History of anemia No blood transfusion/iron infusion hx Hx of migraines Frequent headaches Chronic cough Insomnia Hypertension GERD (gastroesophageal reflux disease) 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 Occasional headaches/facial numbness, at baseline History of COVID-19 06/2021: congestion, fatigue, GI upset 05/2023: congestion, cough, nausea, diarrhea > resolved Vertigo Intermittent episodes Degenerative disc disease Hiatal hernia Depression Sleep apnea 2L O2 HS with CPAP Nitish Delgadillo Surgical History History of wisdom tooth extraction History of lumbar surgery x2 Hx of fusion of cervical spine (02/2022) History of surgery on left wrist hardware present History of esophagogastroduodenoscopy (EGD) History of cataract surgery Left History of cardiac cath 2017 ([facility])- "normal coronary arteries" History of laparoscopy several History of hysterectomy History of arthroplasty of knee Right x3, left x1 History of tonsillectomy History of tooth extraction History of dilatation and curettage History of colonoscopy Family History Father Colorectal cancer Mother Diabetes Hypertension Brother Cancer of kidney Social History Smoking Status: Never smoker Second Hand Exposure: No; Do You Dip or Chew Tobacco: No; Tobacco Cessation Education Requested by Patient: No Hx Alcohol Use: No Hx Substance Use: No Preferred Language: Gabonese Communication Ability: Effective Building Energy Consultant Required: No Beliefs That Will Affect Care: None marital status: / Current Living Situation: Alone Other Information That Helps Us Care for You: No Feels Safe at Home: Yes Safety Concerns: Feels Safe At This Time Assistive Devices: Cane, Glasses and Other Assistive Devices Comment: x1 Dental Cap Review of Systems Review of Systems: All systems reviewed & are unremarkable except as noted in HPI & below Physical Exam Physical Exam: VITALS: Reviewed. WEIGHT/BMI reviewed. GEN: Healthy appearing, well-developed, NAD. PSYCH: Good Judgment. AOx3. Normal memory, mood, and affect. HEENT -Head: NC/AT; -Eyes: PERRL, EOMI. No discharge or redn ess; -Ears: External ears are normal. -Nose: Normal nares. -Mouth and throat: MMM. Normal gums, muc christian, palate,. Good dentition. NECK: Supple, with no masses. CV: RRR, no m/r/g. LUNGS: CTAB, no w/r/c. ABD: Soft, NT/ND, hypoactive BS, no masses or organomegaly. : Dark yellow to obrien SKIN: Warm, well perfused. Back dsg C/D/I, ARTIS intact +25 ml sersanginous output, No skin rashes or abnormal lesions. MSK: No deformities, EXT: No clubbing, cyanosis, or edema. NEURO: Speech clear. CN II-XII grossly intact. No focal deficits. Results & Data Vital Signs (Past 12 Hours) Vital Signs Temp Pulse Pulse Resp BP BP Pulse Ox 12/28/24 14:03 36.5 C 69 17 87/55 L 95 12/28/24 13:25 36.4 C L 60 16 95/53 L 91 12/28/24 12:58 101/55 L 12/28/24 12:50 36.5 C 70 16 90/51 L 94 12/28/24 12:35 36.4 C L 75 12 112/60 95 12/28/24 12:25 64 12 113/58 L 100 12/28/24 12:15 73 14 124/71 100 12/28/24 12:05 81 12 136/80 100 12/28/24 11:55 85 17 134/83 100 12/28/24 11:48 36.0 C L 82 12 114/68 93 12/28/24 07:35 12/28/24 07:35 36.7 C 76 22 115/64 93 O2 Del Method O2 Flow Rate 12/28/24 14:03 Nasal Cannula 4 12/28/24 13:25 Nasal Cannula 4 12/28/24 12:58 12/28/24 12:50 Nasal Cannula 2 12/28/24 12:35 Nasal Cannula 2 12/28/24 12:25 Oxymask 5 12/28/24 12:15 Oxymask 5 12/28/24 12:05 Oxymask 10 12/28/24 11:55 Oxymask 10 12/28/24 11:48 Oxymask 6 12/28/24 07:35 Room Air 12/28/24 07:35 Room Air
--- NOTE | 2024-12-28 15:14 | Pharmacy Report ---
Pharmacy Glycemic Short Note 2 - Date of Service December 28, 2024 - Glycemic Short BSG Results (Last 24 hours): 12/28/24 07:40 POC Glucose 90 OUTPATIENT ANTIDIABETIC REGIMEN: * metformin 500mg PO QPM * tirzepatide 8.5mg SQ QWK * HbA1c 5.7% (12/14/24) ASSESSMENT: * Maty is a 59 year old female admitted status post spinal decompression/fusion with a history of prediabetes. Pharmacy has been consulted to assist with glycemic management while inpatient. * Preoperative BSG this AM excellent, received 8mg IV dexamethasone preoperatively, with ongoing 6mg IV daily x3 days. Will initiate Lantus on a scale with dinner BSG up to 0.2 units/kg (AdjBW) based on BSG. * NovoLog at a weight based stress of 2.5 (based on AdjBW) PLAN FOR INPATIENT GLYCEMIC CONTROL: * Hold outpatient oral diabetes medications * Basal insulin * Lantus 0-20 units SQ QDD x1 based on BSG (see eMAR for additional details) * Bolus insulin * NovoLog per scale ACHS or Q6hrs while NPO * Goal Range: Low 110 mg/dL - High 140 mg/dL * Correction Factor: 25 mg/dL/unit * Nutritional / Prandial insulin per carb ratio of 1 unit per 8 grams CHO consumed
[2024-12-28] MEDS: INSULIN ASPART PER UNIT CHARGE SC SCH (18:12)
[2024-12-28] MEDS: LANTUS PER UNIT CHARGE SC SCH (18:19)
[2024-12-28] MEDS: ceFAZolin 3000MG 3,000 MG/72.5 ML BAG IV SCH (18:29)
[2024-12-28] MEDS: ACETAMINOPHEN 500 MG TAB PO PRN (19:55)
[2024-12-28] MEDS: traZODone HCL 50 MG TAB PO SCH (20:54)
[2024-12-28] MEDS: DOCUSATE SODIUM/SENNA 50/8.6MG TAB PO SCH (20:54)
[2024-12-28] MEDS: FAMOTIDINE 40 MG TABLET PO SCH (22:08)
[2024-12-29] MEDS: POLYETHYLENE (MIRALAX) 17 GM PACK PO SCH (05:56)
[2024-12-29 07:15] LABS: Basophils # (auto) 0.02 K/uL (0.00-0.20); Basophils % (auto) 0.2 %; Eosinophils # (auto) 0.02 K/uL (0.00-0.50); Eosinophils % (auto) 0.2 %; Hematocrit (blood only) 31.3 % (37.0-47.0); Hemoglobin 10.4 g/dl (12.0-16.0); Immature Granulocytes # (auto) 0.04 K/uL (0.01-0.20); Immature Granulocytes % (auto) 0.3 %; Lymphocytes # (auto) 1.21 K/uL (1.20-3.40); Lymphocytes % (auto) 9.8 %; Mean Corpuscular Hemoglobin 28.7 pg (25.0-34.0); Mean Corpuscular Hgb Conc 33.2 g/dL (32.0-36.0); Mean Corpuscular Volume 86.2 fL (80.0-100.0); Mean Platelet Volume 9.3 fL (9.4-12.4); Monocytes # (auto) 0.94 K/uL (0.11-0.59); Monocytes % (auto) 7.6 %; Neutrophils % (auto) 81.9 %; Platelet Count 269 K/uL (130-400); RDW Coefficient of Variation 13.7 % (11.5-14.5); RDW Standard Deviation 43.5 fL (36.4-46.3); Red Blood Count 3.63 M/uL (4.20-5.40); White Blood Count 12.33 K/ul (4.8-10.8)
[2024-12-29 07:34] LABS: Calcium 8.4 mg/dl (8.6-10.3); Potassium 3.7 mmol/L (3.5-5.1)
[2024-12-29 07:40] LABS: BUN Creatinine Ratio 13.2 (10-20); Creatinine Clr Calc Pharmacy 157.3 ml/min
[2024-12-29] MEDS: traMADol HCL 50 MG TABLET PO PRN (07:54)
[2024-12-29] MEDS: CALCIUM CARBONATE 1250MG TAB PO SCH (08:06)
[2024-12-29] MEDS: LORATADINE 10 MG TAB PO SCH (08:07)
[2024-12-29] MEDS: PANTOprazole 40 MG TAB PO SCH (08:07)
[2024-12-29] MEDS: hydroCHLOROthiazide 25 MG TAB PO SCH (08:07)
[2024-12-29] MEDS: ESCITALOPRAM OXALATE 20 MG TAB PO SCH (08:07)
[2024-12-29] MEDS: dexAMETHasone 6 MG in SYRINGE 0 ML IV SCH (08:08)
[2024-12-29] MEDS ORDERED: VITAMIN D3 VITAMIN K2 PO SCH (09:00)
--- NOTE | 2024-12-29 10:39 | Hospitalist Progress Note ---
Date of Service December 29, 2024 Assessment & Plan (1) Status post lumbar spine surgery for decompression of spinal cord: (2) Lumbar stenosis with neurogenic claudication: (3) Other spondylosis with radiculopathy, lumbar region: (4) Acute postoperative anemia due to expected blood loss: (5) Pulmonary hypertension: (6) Severe obstructive sleep apnea: (7) Nocturnal hypoxemia: (8) HTN (hypertension): (9) Prediabetes: Plan Patient status post lumbar surgery, doing well postoperatively ambulating and pain is controlled Medical issues overall well-controlled Hemoglobin decreased some as expected blood loss with this type of surgery. No indication for transfusion at this time Continue current medical management, pain management and VTE prophylaxis per attending Admission and Anticipated Discharge Date Admission Date: December 28, 2024 Subjective Patient was observed up and ambulating the halls with therapy. Reports pain is managed. No chest pain or shortness of breath. Physical Exam Physical Exam: Constitutional: Alert, nontoxic HEENT: Mucous membranes moist. Lungs: Clear to auscultation, decreased, no wheezes rales or rhonchi CV: S1-S2, regular Abdomen: Soft, nontender, nondistended Extremities: No significant edema Neuro: No focal deficits Musculoskeletal: Lumbar surgical dressing clean ARTIS drain in place Psych: Cooperative, normal mood Results & Data Results & Data Vital Signs (Past 12 Hours) Vital Signs Temp Pulse Resp BP BP Pulse Ox O2 Del Method 12/29/24 07:45 36.5 C 65 16 108/58 L 100 Room Air 12/29/24 05:59 95 Room Air 12/29/24 04:08 36.7 C 74 18 107/65 98 BiPAP 12/28/24 23:48 36.7 C 78 16 99/64 L 93 Nasal Cannula O2 Flow Rate 12/29/24 07:45 12/29/24 05:59 12/29/24 04:08 12/28/24 23:48 2 Diagnostic Findings Reviewed imaging, laboratory and diagnostic studies. Pertinent findings as below. WBCs 12.3, expected with Decadron Hemoglobin 10.4, expected with blood loss Electrolytes stable Creatinine 0.53 Glucose was reviewed
[2024-12-29] MEDS: HYDROmorphone INJ 0.5 MG/0.5 ML SYR IV PRN (10:46)
--- NOTE | 2024-12-29 10:53 | Orthopedic Progress Note ---
Date of Service December 29, 2024 Assessment & Plan (1) Status post lumbar spine surgery for decompression of spinal cord: Plan: At this time we will continue physical therapy. Monitor her OT and PT progress. Hopefully discharge home the latter half of this week. Admission and Anticipated Discharge Date Admission Date: December 28, 2024 Subjective Patient's back pain is controlled leg symptoms markedly improved. She has been up and ambulating. Physical Exam Physical Exam: Patient is currently in bed. She is comfortable. Constricted testing. Results & Data Vital Signs (Past 12 Hours) Vital Signs Temp Pulse Resp BP BP Pulse Ox O2 Del Method 12/29/24 07:45 36.5 C 65 16 108/58 L 100 Room Air 12/29/24 05:59 95 Room Air 12/29/24 04:08 36.7 C 74 18 107/65 98 BiPAP 12/28/24 23:48 36.7 C 78 16 99/64 L 93 Nasal Cannula O2 Flow Rate 12/29/24 07:45 12/29/24 05:59 12/29/24 04:08 12/28/24 23:48 2
--- NOTE | 2024-12-29 13:29 | Pharmacy Report ---
Pharmacy Glycemic Short Note 2 - Date of Service December 29, 2024 - Glycemic Short BSG Results (Last 24 hours): 12/28/24 12/28/24 12/28/24 15:08 16:36 20:24 Glucose POC Glucose 125 H 134 H 170 H 12/29/24 12/29/24 12/29/24 06:54 07:32 11:33 Glucose 139 H POC Glucose 107 H 98 OUTPATIENT ANTIDIABETIC REGIMEN: * metformin 500mg PO QPM * tirzepatide 8.5mg SQ QWK * HbA1c 5.7% (12/14/24) ASSESSMENT: 12/29: * Maty received a total of 8 units of insulin yesterday (all were bolus). BSGs were 809-104-321rf/dL. * Fasting BSG was 107mg/dL this morning. Lantus scale was discontinued and parameters of the bolus insulin were loosened. * Lunch BSG decreased to 98mg/dL despite receiving steroids. Removed carb ratio from bolus insulin regimen and will now just use the correction factor. 12/28: * Maty is a 59 year old female admitted status post spinal decompression/fusion with a history of prediabetes. Pharmacy has been consulted to assist with glycemic management while inpatient. * Preoperative BSG this AM excellent, received 8mg IV dexamethasone preoperatively, with ongoing 6mg IV daily x3 days. Will initiate Lantus on a scale with dinner BSG up to 0.2 units/kg (AdjBW) based on BSG. * NovoLog at a weight based stress of 2.5 (based on AdjBW) PLAN FOR INPATIENT GLYCEMIC CONTROL: * Hold outpatient diabetes medications * Basal insulin * none * Bolus insulin * NovoLog per scale ACHS or Q6hrs while NPO * Goal Range: Low 110 mg/dL - High 140 mg/dL * Correction Factor: 30 mg/dL/unit * Nutritional / Prandial insulin per carb ratio: none
--- NOTE | 2024-12-30 10:41 | Orthopedic Progress Note ---
Date of Service December 30, 2024 Assessment & Plan (1) Other spondylosis with radiculopathy, lumbar region: Plan: At this point we will continue physical therapy monitor her ARTIS output anticipate discharge home tomorrow. Admission and Anticipated Discharge Date Admission Date: December 28, 2024 Subjective Back pain controlled leg pain improved Physical Exam Physical Exam: Patient is in the chair at the bedside. She is comfortable. Distracted test ing. Results & Data Vital Signs (Past 12 Hours) Vital Signs Temp Pulse Resp BP Pulse Ox O2 Del Method 12/30/24 07:26 36.6 C 66 18 102/69 98 Room Air Queries Orthopedic Spine Obesity: Yes
--- NOTE | 2024-12-30 12:02 | Hospitalist Progress Note ---
Date of Service December 30, 2024 Assessment & Plan (1) Status post lumbar spine surgery for decompression of spinal cord: (2) Lumbar stenosis with neurogenic claudication: (3) Other spondylosis with radiculopathy, lumbar region: (4) Acute postoperative anemia due to expected blood loss: (5) Pulmonary hypertension: (6) Severe obstructive sleep apnea: (7) Nocturnal hypoxemia: (8) HTN (hypertension): (9) Prediabetes: Plan Patient doing very well postoperatively. Chronic medical issues appear to be stable. Continue therapies Continue postoperative care as determined by attending Patient medically ready for discharge when ready from a surgical standpoint/attending Admission and Anticipated Discharge Date Admission Date: December 28, 2024 Subjective Patient observed up and ambulating in her room. She is quite pleased and excited that she is able to stand up straight. Pain is well-controlled. Uses her CPAP here in the hospital and nightly at home. Physical Exam Physical Exam: Constitutional: Alert, standing up at bedside Lungs: Clear to auscultation, decreased, no wheezes rales or rhonchi CV: S1-S2, regular Extremities: No significant edema Neuro: No focal deficits Musculoskeletal: Surgical dressing clean dry and intact, ARTIS drain in place and functioning appropriately Psych: Cooperative, normal mood Results & Data Results & Data Vital Signs (Past 12 Hours) Vital Signs Temp Pulse Resp BP Pulse Ox O2 Del Method 12/30/24 07:26 36.6 C 66 18 102/69 98 Room Air Diagnostic Findings Reviewed imaging, laboratory and diagnostic studies. Pertinent findings as below.
[2024-12-30] MEDS: MAGNESIUM HYDROXIDE SUSP 30 ML UDC PO PRN (20:26)
[2024-12-31 07:15] VITALS: BP 136/83; PULSE 56; RESP 18; TEMP 97.7; O2SAT 96
--- NOTE | 2024-12-31 08:22 | Discharge Summary ---
Date of Service December 31, 2024 Admission HPI Per Admitting Provider This is a 51-year-old female presents chronic persistent back and bilateral leg pain after failing course of nonoperative care she is here for surgical invention. Principal Diagnosis Lumbar spondylosis with radiculopathy Discharge Data Allergies Allergy/AdvReac Type Severity Reaction Status Date / Time lisinopril Allergy Severe Face, Verified 12/28/24 07:56 Lips, Tongue Edema vancomycin Allergy Severe Red Man Verified 12/28/24 07:56 Syndrome celecoxib Allergy Intermediate "skin Verified 12/28/24 07:56 turned pinkish" morphine Allergy Intermediate Itchiness Verified 12/28/24 07:56 silver Allergy Intermediate Itchiness, Verified 12/28/24 07:56 Redness Penicillins AdvReac Intermediate Fatigue/Trouble Verified 12/28/24 07:56 Walking Consultations 12/28/24 12:55 Consult Hospitalist Routine Procedures Performed Operation Date: 12/28/24 09:05 Actual Procedures p L3-L4, L5-S1 Decompression, L3-S1 Fusion(Not Applicable) - Jaguar Lyons DO s L4-L5 Hardware Removal, (Not Applicable) - Jaguar Lyons DO Ordered Studies 12/28/24 09:05 FL lumbar spine 2-3V Routine Hospital Course (1) Status post lumbar spine surgery for decompression of spinal cord: Patient underwent lumbar decompression fusion tolerated this well was taken orthopedic for postoperative. Postoperatively she was asked appropriately. Improvement of back and leg pain. ARTIS drainage decreasing. Excellent strength testing. Pain controlled. Subsidy discharged home. Discharge orders and instructions found in chart for further review. Total Time Total Time Spent Total Time Spent (In Minutes): 20 minutes Discharge Plan Discharge Items Patient Disposition: Home - Self-Care Reason For Visit: Lumbar Disc Disease with Radiculopathy, Other Spon Discharge Diagnosis: Lumbar spondylosis with radiculopathy Activity: As commented below Non-emergency contact: Primary Care Provider Call non-emergency contact if: you have any medication questions Follow-up/Referrals: Anderson Nieves MD [Primary Care Provider] - Diet: Regular Addtl Attending Provider Instructions: ACTIVITY RECOMMENDATIONS: SELF CARE INSTRUCTIONS AFTER THORACIC/LUMBAR FUSIONS 1. You may walk to your tolerance. It is good exercise for your legs and back. Expect some back and intermittent leg aches and pains. 2. You may perform "counter-top" level activities (make a sandwich, dipika with a project, etc.). 3. No bending or lifting of more than 10 pounds or back twisting of any nature (roll like a log when turning in bed). 4. You may ride in a car for 20-30 minutes at a time. No driving until after your first visit with your doctor. 5. Frequent changes of position and restricting sitting to 30 minutes at a time will help limit the amount of back spasms and stiffness you may experience. 6. You may discontinue the use of ambulatory aids (cane, crutches, etc.) once your strength and confidence allow. 7. You may hospital insurance representative the shower and let water strike your incision when you arrive home at least once daily. Do not take a tub bath, sit in a hot tub or go into a swimming pool until after your first recheck in the office. 8. You may resume previous diet. SPECIAL CARE INSTRUCTIONS: VERY IMPORTANT TO READ AND REVIEW A. Your surgical incision has been closed with a cosmetic suture under the skin that will dissolve in about 6 weeks. In 14 days, you can use a pair of clean scissors and cut the suture that is left outside of the skin at the ends of your incision. 1. The small skin tapes can be removed 7 days after surgery if they have not fallen off by that point. 2. You may keep the wound open to air as much as possible to promote healing after post-op day number 5 unless told otherwise by your doctor. 3. If you think the wound looks like it is becoming infected (redness or worsening drainage) and/or you are experiencing fever, chill or worsening back pain and muscle spasms, contact the office so that we may evaluate you as soon as possible. B. Complications are uncommon, but please contact us if you have any signs or symptoms of: 1. wound infection (fever higher than 102.5 degrees F, redness, separation of wound, drainage, or increasing pain from the incision) 2. blood clots in legs (pain, swelling, redness and warmth in legs) 3. urinary tract infection (fever higher than 102.5 degrees F, burning upon urination or increased frequency of urination) 4. nerve problems (inability to walk on your toes or heels, numbness, loss of bowel or bladder control) 5. any other symptoms that concern you C. Please call the office at if you have any concerns or questions about your operation or recovery. D. No smoking! Smoking drastically decreases the chance of a solid fusion. E. Do not take any anti-inflammatory medications (Indocin, Advil, Motrin, Aspirin, Naprosyn, etc.) as these may inhibit the chance of a solid fusion. Tylenol is okay to take for pain. MANAGING PAIN AFTER SPINAL SURGERY 1. Narcotic medication is intended for short-term use and will be provided for surgical pain. Surgical pain usually lasts for a period of 4-6 weeks. Narcotic medication includes Percocet, Vicodin, Darvocet, Tylenol #3 or Lortab. 2. Longer-term pain is more appropriately treated with non-narcotic medication such as Tylenol ES. 3. Muscle spasm is not appropriately treated with narcotics. Muscle relaxers such as Soma, Flexeril or Skelaxin can be used along with Tylenol ES. 4. Remember that we all live with some "aches and pains". This is not unusual or uncommon after an injury or as we get older. a. Back pain is expected and may include muscle spasms for 4 to 6 weeks after surgery. The pain should gradually improve. If the pain worsens for no apparent reason, please contact the office. b. Intermittent leg pain may also be experienced and should not be concerned about unless it worsens for no apparent reason. If so, please contact the office. 5. We will provide appropriate medication within the normal guidelines of their prescribed use. We will also be very cautious and aware of potential abuse and extended duration of patients' medication needs. a. Pain medications are for your comfort and to assist with sleep and rest so that the tissue can heal. They are not provided in order to return to normal activity and should not be used through the day. To do so or worsening pain at night can result from ongoing tissue damage and d evelopment of tolerance to the prescribed medicine. 6. Please allow 2-3 days to process refills. Prescriptions will not be mailed but must be picked up at the office. FOLLOW UP VISIT: Keep your scheduled follow-up appointment. Any questions, please call the office at . Pending Studies at Discharge: No Stand-Alone Forms: [employer], Smoking Cessation Medications and DC Order Prescriptions: New tramadol 50 mg tablet 50 mg PO Q6H PRN (Reason: pain, moderate) Qty: 30 0RF oxycodone 5 mg tablet 5 mg PO Q6H PRN (Reason: pain) Qty: 30 0RF Continued loratadine [Claritin] 10 mg tablet 10 mg PO QAM hydrochlorothiazide 25 mg tablet 25 mg PO QAM escitalopram oxalate [Lexapro] 20 mg tablet 20 mg PO QAM lansoprazole [Prevacid] 30 mg Capsule,Delayed Release(Dr/Ec) 30 mg PO QAM trazodone 50 mg Tablet 50 mg PO HS famotidine 40 mg tablet 40 mg PO HS ibuprofen 200 mg Tablet 1,600 - 2,400 mg PO Q6H PRN (Reason: Pain) calcium 250 mg Tablet 250 mg PO QAM metformin 500 mg tablet extended release 24 hr 500 mg PO QPM vitamin D3-vitamin K2 250 mcg (10,000 unit)-45 mcg Capsule 1 cap PO QAM Rx Instructions: x2 a week tirzepatide (weight loss) 7.5 mg/0.5 mL Solution 8.5 mg SUBCUT WK Patient Comments: unsure of dose Rx Instructions: Saturday Discharge Orders: Discharge Order (Routine); Ordered 12/31/24 Ordered By: Jaguar Lyons Admission Data Admit Date/Time: 12/28/24 11:28 Attending Provider: Jaguar Lyons Admit Provider: Jaguar Lyons Primary Care Provider: Anderson Nieves Other Providers: Patti Singleton
--- NOTE | 2024-12-31 10:24 | Hospitalist Progress Note ---
Date of Service December 31, 2024 Assessment & Plan (1) Status post lumbar spine surgery for decompression of spinal cord: (2) Lumbar stenosis with neurogenic claudication: (3) Other spondylosis with radiculopathy, lumbar region: (4) Acute postoperative anemia due to expected blood loss: (5) Pulmonary hypertension: (6) Severe obstructive sleep apnea: (7) Nocturnal hypoxemia: (8) HTN (hypertension): (9) Prediabetes: Plan Patient 59-year-old female status post lumbar surgery. Postoperative course has been uneventful and she is recovering well. Patient's chronic medical issues have been stable throughout this postoperative period Patient reports plans for discharge today Patient medically able to be discharged. Recommend she continue her preadmission medications as prescribed and follow-up with her outpatient PCP. Admission and Anticipated Discharge Date Admission Date: December 28, 2024 Subjective Patient reports no acute issues over the last 24 hours. Overall slept well. States she was up and ambulating in the room in the halls yesterday. Physical Exam Physical Exam: Constitutional: Alert HEENT: Mucous membranes moist. Lungs: Clear to auscultation, decreased, no wheezes rales or rhonchi CV: S1-S2, regular Abdomen: Soft, nontender, nondistended Extremities: No significant edema Neuro: No focal deficits Psych: Cooperative, normal mood Results & Data Results & Data Vital Signs (Past 12 Hours) Vital Signs Temp Pulse Resp BP Pulse Ox O2 Del Method 12/31/24 07:14 36.5 C 56 L 18 136/83 96 Room Air
== END 2024-12-31 14:51 | disposition home or self-care (01) | DRG 427 ==
LOC: ASU 07:29 → 3N 11:28

== ENCOUNTER 2025-01-18 22:44 | Observation (INO) ==
[2025-01-18 23:36] LABS: Hematocrit (blood only) 32.7 % (37.0-47.0); Hemoglobin 10.4 g/dl (12.0-16.0); Immature Granulocytes # (auto) 0.06 K/uL (0.01-0.20); Immature Granulocytes % (auto) 0.4 %; Mean Corpuscular Hemoglobin 27.5 pg (25.0-34.0); Mean Corpuscular Volume 86.5 fL (80.0-100.0); Platelet Count 377 K/uL (130-400); RDW Standard Deviation 43.4 fL (36.4-46.3); Red Blood Count 3.78 M/uL (4.20-5.40); White Blood Count 13.69 K/ul (4.8-10.8)
[2025-01-18 23:55] LABS: Alanine Aminotransferase 18 U/L (7-52); Albumin Globulin Ratio 0.9 (0.9-2); Albumin Level 3.3 gm/dl (3.4-5.0); Alkaline Phosphatase 115 U/L (34-104); Anion Gap 8 (3-11); Bilirubin,Total 0.5 mg/dl (0.2-1.0); Blood Urea Nitrogen 9 mg/dl (6-23); Calcium 8.8 mg/dl (8.6-10.3); Carbon Dioxide 27 mmol/L (21-32); Chloride 96 mmol/L (98-107); Globulin 3.8 gm/dl (2.5-4.0); Glucose 152 mg/dl (70-99(Fasting)); Magnesium 1.6 mg/dl (1.7-2.4); Potassium 3.8 mmol/L (3.5-5.1); Sodium 131 mmol/L (136-145); Total Protein 7.1 gm/dl (6.0-8.3)
--- NOTE | 2025-01-19 00:13 | Emergency Department Note ---
Impression & Plan Sepsis, Wound infection, Cellulitis, Tachycardia, Leukocytosis, History of lumbar surgery ED Provider Note NAME: ANNIE SUAREZ AGE: 60 SEX: F : 1965 ARRIVES VIA: Walk-In INFORMANT: [Patient] ED PROVIDER(S): [Sloan Kwong MD] CHIEF COMPLAINT: Infection HISTORY OF PRESENT ILLNESS: The patient is a 60-year-old female who presents with 4 days of some lower back discomfort, low-grade fevers and now some drainage. The erythema has spread in the last 24 hours. She has had chills and she has felt a bit weak. No cough or congestion or shortness of breath. No vomiting or diarrhea, no urinary complaints. The patient did have lumbar spine surgery with Dr. Lyons on 28 December, she was fine and doing well and healing well up until 4 days ago. Patient has not had difficulty with urinary retention. She has no new leg weakness. She feels globally weak from the fever and infection. PMHx/PSHx/Social Hx: See Below PHYSICAL EXAM: GENERAL: Patient is in no acute distress. HEENT: No acute trauma, normocephalic atraumatic, mucous membranes moist, no nasal congestion. NECK: No stridor, no adenopathy, no meningismus, trachea is midline. LUNGS: Clear to auscultation bilaterally, no wheeze, no rhonchi, breath sounds equal. HEART: Tachycardic, regular rhythm, no murmurs. ABDOMEN: Soft, nontender, no peritonitis. Obese. EXTREMITIES: No cyanosis, full range of motion of all the joints without pain or difficulty. NEUROLOGIC: Oriented x 3, no acute motor or sensory deficits, no focal weakness. SKIN: No jaundice, no diaphoresis. Back: The patient has lumbar erythema and warmth. There is some clear drainage seen on the healing surgical wound. There is soreness in the area of erythema. DIFFERENTIAL DIAGNOSIS: Wound infection, abscess, bacteremia or sepsis, dehydration, among others. EMERGENCY DEPARTMENT PROCEDURES: MEDICAL DECISION MAKING: There is a mild leukocytosis, this would be consistent with infection. The patient was anemic however, the hemoglobin was stable compared to a recent value. There was a normal platelet count. No bandemia. No concerning coagulopathy. Sodium was somewhat low but not in need of emergent correction. No renal failure. Lactic acid level was not elevated making severe sepsis less likely. Magnesium was a bit low at 1.6. No concerning liver enzyme elevation. Cardiac enzyme testing x 1 was not consistent with acute cardiac injury. Patient appeared to be in a euthyroid state. Urinalysis suggested some dehydration, no true infection. COVID, influenza and RSV test were negative. Chest x-ray did not show pneumonia or CHF. On exam, patient had a cellulitis in the area of her her lumbar surgical wound. The patient was aggressively managed as she did meet criteria for sepsis. She received 2 L of IV saline. The 2 L of saline will meet criteria for 30 cc/kg of IV hydration based on the ideal body weight as per sepsis protocol. She was given IV cefepime as empiric antibiotic coverage. She received IV Tylenol for fever. I did speak with spinal surgery, they asked for a lumbar MRI with contrast, this was ordered, the results are pending. The patient is clearly in need of a hospital stay. She appears to have sepsis from a cellulitis along the area of her lumbar surgical wound. Luckily, she is not hypotensive. I spoke at length with the patient. I did speak with case management, the on- call hospitalist was consulted. Admission is warranted. Prior/Outside records/notes reviewed: None Imaging/x-ray results per my interpretation: Chest x-ray is not mediastinal widening, CHF or pneumonia. Chronic Medical/Social conditions affecting care: Recent lumbar surgery. Care/Management discussed with: Spinal surgery-Dr. Lyons. Case management and the on-call hospitalist. Level of care consideration(s): After review of the information above and other included data: --I believe the patient requires escalation of care to admission Critical Care Note: I have personally spent 51 minutes of critical care time in the direct management of this patient. This includes bedside care, interpretation of diagnostic studies, and testing, discussion with consultants, patient, and family members, and other required patient management activities. This 51 minutes is in excess of all separately billable procedures. DISPOSITION: Admission Past Med/Surg History Problem List (Updated 01/19/25 @ 02:33 by Sloan Kwong MD) History of lumbar surgery (Acute) Leukocytosis (Acute) Tachycardia (Acute) Cellulitis (Acute) Wound infection (Acute) Sepsis (Acute) Status post lumbar spine surgery for decompression of spinal cord Acute postoperative anemia due to expected blood loss Other spondylosis with radiculopathy, lumbar region Pulmonary hypertension Severe obstructive sleep apnea Nocturnal hypoxemia HTN (hypertension) Cervical stenosis of spinal canal Encounter for pre-operative examination GERD (gastroesophageal reflux disease) Obesity Insomnia Lumbar stenosis with neurogenic claudication (Acute 03/10/14) Medical History Nocturnal hypoxemia 2L O2 HS with CPAP [facility] Constipation R/t tirzepatide per patient Prediabetes Oral/Weekly Inj History of anemia No blood transfusion/iron infusion hx Hx of migraines Frequent headaches Chronic cough Insomnia Hypertension GERD (gastroesophageal reflux disease) 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 Occasional headaches/facial numbness, at baseline History of COVID-19 06/2021: congestion, fatigue, GI upset 05/2023: congestion, cough, nausea, diarrhea > resolved Vertigo Intermittent episodes Degenerative disc disease Hiatal hernia Depression Sleep apnea 2L O2 HS with CPAP [facility] Surgical History (Updated 01/19/25 @ 02:33 by Sloan Kwong MD) History of wisdom tooth extraction History of lumbar surgery x2 Hx of fusion of cervical spine (02/2022) History of surgery on left wrist hardware present History of esophagogastroduodenoscopy (EGD) History of cataract surgery Left History of cardiac cath 2017 ([facility])- "normal coronary arteries" History of laparoscopy several History of hysterectomy History of arthroplasty of knee Right x3, left x1 History of tonsillectomy History of tooth extraction History of dilatation and curettage History of colonoscopy Family History Father Colorectal cancer Mother Diabetes Hypertension Brother Cancer of kidney Social History Smoking Status: Never smoker Second Hand Exposure: No; Do You Dip or Chew Tobacco: No; Hx Alcohol Use: No Hx Substance Use: No Preferred Language: Moroccan Communication Ability: Effective 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 Beliefs That Will Affect Care: None marital status: / Current Living Situation: Alone Feels Safe at Home: Yes Assistive Devices: Walker Allergies Allergies Allergy/AdvReac Type Severity Reaction Status Date / Time lisinopril Allergy Severe Face, Verified 12/28/24 07:56 Lips, Tongue Edema vancomycin Allergy Severe Red Man Verified 12/28/24 07:56 Syndrome celecoxib Allergy Intermediate "skin Verified 12/28/24 07:56 turned pinkish" morphine Allergy Intermediate Itchiness Verified 12/28/24 07:56 silver Allergy Intermediate Itchiness, Verified 12/28/24 07:56 Redness oxycodone AdvReac Intermediate Headache Verified 01/19/25 01:43 Penicillins AdvReac Intermediate Fatigue/Trouble Verified 12/28/24 07:56 Walking Home Meds Home Medications Medication Instructions Recorded Confirmed escitalopram oxalate 20 mg tablet 20 mg PO QAM 05/24/19 01/19/25 (Lexapro) hydrochlorothiazide 25 mg tablet 25 mg PO QAM 05/24/19 01/19/25 loratadine 10 mg tablet (Claritin) 10 mg PO QAM 05/24/19 01/19/25 lansoprazole 30 mg capsule,delayed 30 mg PO QAM 02/07/22 01/19/25 release (Prevacid) trazodone 50 mg tablet 50 mg PO HS 07/19/23 01/19/25 calcium 250 mg tablet 250 mg PO QAM 12/04/24 01/19/25 famotidine 40 mg tablet 40 mg PO HS 12/04/24 01/19/25 ibuprofen 200 mg tablet 1,600 - 2,400 mg PO Q6H PRN Pain 12/04/24 01/19/25 metformin 500 mg tablet,extended 500 mg PO QPM 12/04/24 01/19/25 release 24 hr tirzepatide (weight loss) 7.5 8.5 mg subcut WK 12/04/24 01/19/25 mg/0.5 mL subcutaneous solution vitamin D3 250 mcg (10,000 1 cap PO QAM 12/04/24 01/19/25 unit)-vitamin K2 45 mcg capsule Results & Data (ED) Vital Signs Vital Signs - 24 hr 01/18/25 22:49 01/18/25 23:17 01/18/25 23:18 Temperature 38.2 C H Temperature Source Oral Pulse Rate 118 H 111 H 112 H Pulse Rate from SpO2 Sensor Pulse Rhythm Regular Pulse Strength Normal Respiratory Rate 20 22 Respiratory Effort / Characteristics Non-Labored Spontaneous Respiratory Depth Normal Respiratory Pattern Regular Blood Pressure 135/83 146/82 H Blood Pressure Mean 100 103 Pulse Oximetry 98 96 Oxygen Delivery Method Room Air Sepsis Recent Fever Within 48 Hours Yes Sepsis New/Unexplained Change in Mental Status No Sepsis Action Taken by Nursing No Action Required 01/18/25 23:51 01/19/25 00:16 01/19/25 01:56 Temperature 36.9 C Temperature Source Oral Pulse Rate 108 H 119 H Pulse Rate from SpO2 Sensor 109 H Pulse Rhythm Pulse Strength Respiratory Rate 20 22 Respiratory Effort / Characteristics Respiratory Depth Respiratory Pattern Blood Pressure 133/72 126/79 Blood Pressure Mean 92 104 Pulse Oximetry 96 98 Oxygen Delivery Method Sepsis Recent Fever Within 48 Hours Sepsis New/Unexplained Change in Mental Status Sepsis Action Taken by Care Home Medications Current Medication List: was personally reviewed by me Laboratory Data Attestation: I reviewed the patient's lab results. 01/18/25 23:23 01/18/25 23:23 Lab Results 01/18/25 01/19/25 01/19/25 Range/Units 23:23 00:11 01:15 WBC 13.69 H (4.8-10.8) K/ul RBC 3.78 L (4.20-5.40) M/uL Hgb 10.4 L (12.0-16.0) g/dl Hct 32.7 L (37.0-47.0) % MCV 86.5 (80.0-100.0) fL MCH 27.5 (25.0-34.0) pg MCHC 31.8 L (32.0-36.0) g/dL RDW Std Deviation 43.4 (36.4-46.3) fL RDW Coeff of Macho 13.8 (11.5-14.5) % Plt Count 377 (130-400) K/uL MPV 8.8 L (9.4-12.4) fL Immature Gran % (Auto) 0.4 % Neut % (Auto) 81.0 % Lymph % (Auto) 6.9 % [place] % (Auto) 10.5 % Eos % (Auto) 0.7 % Baso % (Auto) 0.5 % Neut # (Auto) 11.07 H (1.40-6.50) K/uL Lymph # (Auto) 0.95 L (1.20-3.40) K/uL [place] # (Auto) 1.44 H (0.11-0.59) K/uL Eos # (Auto) 0.10 (0.00-0.50) K/uL Baso # (Auto) 0.07 (0.00-0.20) K/uL Immature Gran # (Auto) 0.06 (0.01-0.20) K/uL PT 12.0 (9.0-12.0) Seconds INR 1.1 (0.9-1.1) APTT 35 H (21-31) Seconds PTT Ratio 1.3 Sodium 131 L (136-145) mmol/L Potassium 3.8 (3.5-5.1) mmol/L Chloride 96 L (98-107) mmol/L Carbon Dioxide 27 (21-32) mmol/L Anion Gap 8 (3-11) BUN 9 (6-23) mg/dl Creatinine 0.56 L (0.6-1.2) mg/dl Est Cr Clr Drug Dosing Not Reportable eGFR 105.07 BUN/Creatinine Ratio 16.1 (10-20) Glucose 152 H (70-99(Fasting)) mg/dl Osmolality 275 L (280-300) mOsm/kg Lactate 1.2 (0.4-2.0) mmol/L Calcium 8.8 (8.6-10.3) mg/dl Magnesium 1.6 L (1.7-2.4) mg/dl Total Bilirubin 0.5 (0.2-1.0) mg/dl AST 17 (13-39) U/L ALT 18 (7-52) U/L Alkaline Phosphatase 115 H (34-104) U/L Troponin I High Sens 7.6 (0-14) pg/ml Total Protein 7.1 (6.0-8.3) gm/dl Albumin 3.3 L (3.4-5.0) gm/dl Globulin 3.8 (2.5-4.0) gm/dl Albumin/Globulin Ratio 0.9 (0.9-2) Procalcitonin 0.30 (0-0.5) ng/ml TSH 0.895 (0.300-4.500) uIu/ml Urine Color Yellow Urine Appearance Clear (Clear) Urine pH 6.5 (4.5-7.5) Ur Specific [place] 1.022 (1.000-1.030) Urine Protein Trace H (Negative) Urine Glucose (UA) Negative (Negative) Urine Ketones Trace H (Negative) Urine Blood Negative (Negative) Urine Nitrite Negative (Negative) Urine Bilirubin Negative (Negative) Urine Urobilinogen Negative (Negative) Ur Leukocyte Esterase 1+ H (Negative) Urine WBC (Auto) 0-5 (0-5) /hpf Urine RBC (Auto) 0-2 (0-2) /hpf U Hyaline Cast (Auto) 0-2 (0-2) /lpf U Epithel Cells (Auto) 3-5 H (0-2) /hpf Urine Bacteria (Auto) None Seen (None Seen) Urine Comment SARS-CoV-2 (PCR) NEGATIVE (Negative) Influenza Type A (PCR) Negative (Neg) Influenza Type B (PCR) Negative (Neg) RSV (RT-PCR) Negative (Neg) Administered Medications Magnesium Sulfate/Dextrose (Magnesium Sulfate / D5w) 1 gm in 100 mls @ 50 mls/hr IV Q2H СВЕТЛАНА Stop: 01/19/25 04:59 Last Admin: 01/19/25 01:49 Dose: 50 mls/hr Documented By: LINNEA Discontinued Medications Sodium Chloride (Nss) 1,000 mls @ 999 mls/hr IV .Q1H1M ONE Stop: 01/19/25 00:49 Last Infusion: 01/19/25 01:53 Dose: Infused Documented By: Admin: 01/19/25 00:19 Dose: 999 mls/hr Documented By: RENEE Cefepime HCl (Maxipime 2000mg) 2,000 mg in 20 mls @ 5 mls/min IV NOW STA; Protocol Stop: 01/18/25 23:52 Last Admin: 01/19/25 00:19 Dose: 5 mls/min Documented By: RENEE Acetaminophen (Ofirmev) 1,000 mg in 100 mls @ 400 mls/hr IV NOW STA Stop: 01/19/25 00:19 Last Infusion: 01/19/25 01:11 Dose: Infused Documented By: Admin: 01/19/25 00:19 Dose: 400 mls/hr Documented By: RENEE Sodium Chloride (Nss) 1,000 mls @ 999 mls/hr IV .Q1H1M ONE Stop: 01/19/25 01:29 Last Admin: 01/19/25 01:49 Dose: 999 mls/hr Documented By: LINNEA Daptomycin 600 mg/ Syringe 12 mls @ 6 mls/min IV NOW ONE; Protocol Stop: 01/19/25 01:01 Last Admin: 01/19/25 01:48 Dose: 6 mls/min Documented By: LINNEA Imaging Data Radiologist's Impression: Chest X-Ray 01/18/25 23:49 EXAM: XR chest 1V portable CLINICAL HISTORY: Fever. TECHNIQUE: An X-ray image of the chest is obtained in AP projection. COMPARISON: CR dated 12/14/2024 FINDINGS: Pulmonary Parenchyma: Lungs are clear bilaterally. No evidence of consolidation, collapse, or focal opacities. No pulmonary nodules are identified. No evidence of pleural effusion or pleural thickening. Heart and Mediastinum: Heart size and shape are normal. No mediastinal widening or masses. No hilar or mediastinal lymphadenopathy. Bony Thorax: Bony thorax appears intact without fractures or deformities. Soft Tissues: Soft tissues overlying the chest wall are unremarkable. Evidence of anterior cervical fixation. IMPRESSION: 1. Normal chest X-ray. No acute cardiopulmonary abnormalities are identified. 2. No interval changes. Electronically signed by Brodie Lin 01-19-2025 01:19 AM Discharge Plan Visit Data Chief Complaint: Infection Stated Complaint: INFECTION WITH CHILLS, POST BACK SURGERY ED Provider: Sloan Kwong Discharge Problem: Sepsis, Wound infection, Cellulitis, Tachycardia, Leukocytosis, History of lumbar surgery Patient Disposition: Admitted As Inpatient Condition: Serious Forms Stand Alone Forms: My [facility] Prescriptions Prescriptions: No Action loratadine [Claritin] 10 mg tablet 10 mg PO QAM hydrochlorothiazide 25 mg tablet 25 mg PO QAM escitalopram oxalate [Lexapro] 20 mg tablet 20 mg PO QAM lansoprazole [Prevacid] 30 mg Capsule,Delayed Release(Dr/Ec) 30 mg PO QAM trazodone 50 mg Tablet 50 mg PO HS famotidine 40 mg tablet 40 mg PO HS ibuprofen 200 mg Tablet 1,600 - 2,400 mg PO Q6H PRN (Reason: Pain) calcium 250 mg Tablet 250 mg PO QAM metformin 500 mg tablet extended release 24 hr 500 mg PO QPM vitamin D3-vitamin K2 250 mcg (10,000 unit)-45 mcg Capsule 1 cap PO QAM Rx Instructions: x2 a week tirzepatide (weight loss) 7.5 mg/0.5 mL Solution 8.5 mg SUBCUT WK Patient Comments: unsure of dose Rx Instructions: Saturday Referrals Referrals: Anderson Nieves MD [Primary Care Provider] - Discharge Problem: Sepsis Qualifiers: Sepsis type: sepsis due to unspecified organism Sepsis acute organ dysfunction status: without acute organ dysfunction Qualified Code(s): A41.9 - Sepsis, unspecified organism Cellulitis Qualifiers: Site of cellulitis: trunk Site of cellulitis of trunk: back Qualified Code(s): L03.312 - Cellulitis of back [any part except buttock] Leukocytosis Qualifiers: Leukocytosis type: unspecified Qualified Code(s): D72.829 - Elevated white blood cell count, unspecified
[2025-01-19 00:14] LABS: INR 1.1 (0.9-1.1); Partial Thromboplastin Time 35 Seconds (21-31); Prothrombin Time 12.0 Seconds (9.0-12.0)
[2025-01-19] MEDS: ACETAMINOPHEN 1,000 MG/100 ML VIAL IV STA (00:19)
[2025-01-19] MEDS: SODIUM CHLORIDE 0.9% 1,000 ML IV ONE ×2 (00:19→01:49)
[2025-01-19] MEDS: CEFEPIME 2000MG 2,000 MG/20 ML SYR IV STA (00:19)
--- NOTE | 2025-01-19 01:19 | XRay Report ---
EXAM: XR chest 1V portable CLINICAL HISTORY: Fever. TECHNIQUE: An X-ray image of the chest is obtained in AP projection. COMPARISON: dated 12/14/2024 FINDINGS: Pulmonary Parenchyma: Lungs are clear bilaterally. No evidence of consolidation, collapse, or focal opacities. No pulmonary nodules are identified. No evidence of pleural effusion or pleural thickening. Heart and Mediastinum: Heart size and shape are normal. No mediastinal widening or masses. No hilar or mediastinal lymphadenopathy. Bony Thorax: Bony thorax appears intact without fractures or deformities. Soft Tissues: Soft tissues overlying the chest wall are unremarkable. Evidence of anterior cervical fixation. IMPRESSION: 1. Normal chest X-ray. No acute cardiopulmonary abnormalities are identified. 2. No interval changes. Electronically signed by Brodie Lin 01-19-2025 01:19 AM
[2025-01-19 01:22] LABS: Thyroid Stimulating Hormone 0.895 uIu/ml (0.300-4.500)
[2025-01-19 01:30] LABS: Influenza A virus by PCR Negative (Neg); Influenza B virus by PCR Negative (Neg); SARS CoV2 RNA(COVID-19) Ceph NEGATIVE (Negative)
[2025-01-19] MEDS ORDERED: LORazepam 0.5 MG TAB PO PRN (01:38)
[2025-01-19] MEDS: DAPTOmycin 600 MG in SYRINGE 0 ML IV ONE (01:48)
[2025-01-19] MEDS: MAGNESIUM SULFATE / D5W 1 GM/100 ML BAG IV SCH (01:49)
[2025-01-19 02:15] LABS: Appearance Urine Clear (Clear); Bacteria Urine Automated None Seen (None Seen); Cast Urine Automated 0-2 /lpf (0-2); Glucose Urine UA Negative (Negative); RBC Urine Automated 0-2 /hpf (0-2); WBC Urine Automated 0-5 /hpf (0-5)
[2025-01-19] MEDS: GADOBUTROL 65ML VIAL IV ONE (02:33)
[2025-01-19] MEDS: NSS + 20MEQ KCL 20 MEQ/1,000 ML BAG IV ONE ×2 (03:09→15:32)
--- NOTE | 2025-01-19 03:56 | Magnetic Resonance Report ---
EXAM: MR lumbar spine wo/w con CLINICAL HISTORY: surgical wound infection TECHNIQUE: MRI of the lumbar spine was performed without the administration of intravenous contrast. Sequences obtained include sagittal T1-weighted, T2-weighted, STIR (Short Tau Inversion Recovery), and axial T2-weighted sequences. COMPARISON: No previous studies are available for comparison. FINDINGS: Status post lower lumbar fixation with laminectomy,metallic rods and transpedicular screws insitu causing susceptibility artefacts. Terminal lumbar segment vertebra is labeled as L5. Grade I anterolisthesis of L4 over L5 vertebra is noted. Mild exaggeration of the lumbar lordosis is noted. Transpedicular fixation devices are noted involving L3, L4, L5, S1 vertebral levels producing susceptibility artifacts in these areas. Resultant suboptimal evaluation of the vertebrae, spinal canal and adjacent soft tissue is noted. Degenerative changes are noted in the visualized spine in the form of marginal osteophytes, endplate irregularities, reduction in the disc heights, degenerated discs at all the levels. Suspicious fusion of L4 and L5 vertebra is noted. Extensive posterior paraspinal soft tissue edema, fat stranding and fluid collection is noted. Large collection is noted within the subcutaneous plane of the lumbar region. It measures approximately 11.4 x 10.8 x 15.9 cm (AP x TR x CC) in size. It has relatively thick jiang. Multiple septations are noted within it. Multiple hypointense foci are noted within this collection, may represent air foci or calcifications. This fluid appears to be indenting the epidural fat at distal lumbar and the proximal sacral level. However, no obvious extension within the spinal canal or compression of the thecal sac is noted. Possibility of infected collection/abscess. Mild posterior disc bulges are noted at L1-L2, L2-L3 levels indenting thecal sac, not causing any significant neural compression. Suboptimal evaluation at L3-L4, L4-L5, L5-S1 levels due to susceptibly artifacts. IMPRESSION: Terminal lumbar segment vertebra is labeled as L5. Grade I anterolisthesis of L4 over L5 vertebra is noted. Mild exaggeration of the lumbar lordosis is noted. Transpedicular fixation devices are noted involving L3, L4, L5, S1 vertebral levels producing susceptibility artifacts in these areas. Resultant suboptimal evaluation of the vertebrae, spinal canal and adjacent soft tissue is noted. Degenerative changes are noted in the visualized spine as described. Suspicious fusion of L4 and L5 vertebra is noted. Extensive posterior paraspinal soft tissue edema, fat stranding and fluid collection is noted. Large collection is noted within the subcutaneous plane of the lumbar regionas described above. Possibility of infected collection/abscess. Mild posterior disc bulges are noted at L1-L2, L2-L3 levels indenting thecal sac, not causing any significant neural compression. Suboptimal evaluation at L3-L4, L4-L5, L5-S1 levels due to susceptibly artifacts. Electronically signed by Naveen Andrade 01-19-2025 03:55 AM
--- NOTE | 2025-01-19 05:57 | History & Physical Report ---
Date of Service January 19, 2025 Assessment & Plan (1) Sepsis: Plan: Assessment and plan below following discussion of case with ED provider and reviewing patient history/pertinent normal/abnormal diagnostic test results. Sepsis Possible infected fluid collection on MRI Recent lumbar decompression surgery Hyponatremia secondary to illness, home diuretic contributory hypertension, stable hx PVD, carotid artery disease as per records moderate TR CHRISTIAN on CPAP/pulmonary hypertension Morbid obesity prediabetes, hemoglobin A1c of 5.7 from last month Postop anemia, hemoglobin at baseline Admit to med/tele CS, daptomycin, Zosyn Orthopedics spine consult RE postop infection (ED provider already in touch with Dr. Lyons.) N.p.o. in anticipation of procedure IVF, hold home diuretic for now DVT prophylaxis. SCDs re: possible procedure Full code Text document was generated using e[employer]ai - how to arabia voice recognition software. It may contain grammatical or spelling errors. Kindly contact undersigned for clarification of any documentation item in question. Admission and Anticipated Discharge Date Admission Date: January 19, 2025 History of Present Illness Chief Complaint: Back wound drainage, fever chills Primary Care Provider: Anderson Nieves MD History obtained from patient and records. Medical history significant for hypertension, PVD, moderate TR, CHRISTIAN on CPAP, pulmonary hypertension, GERD, prediabetes, Ghanshyam syndrome as per records, endometriosis, mood disorder. Recent confinement under Orthopedics spine service 12/28- for lumbar radiculopathy status post decompression surgery. Hemoglobin 10.4 at time of discharge. Few days ago, patient noted some increase in low back pain without unusual weakness. Transient headache symptoms which patient attributes to oxycodone. No neck pain. 2 days ago, patient noted clear drainage from wound associated with fever, chills, nausea. Poor appetite. Patient consulted ER for worsening symptoms. Cefepime administered at the ER. Medical History as above Surgical History : Spine surgery, dental surgery, hysterectomy, knee surgery, tonsillectomy, D&C, cataract surgery, wrist surgery, septoplasty Family History : DM, heart disease, black lung, kidney cancer, colon cancer Personal/Social history : Non-smoker, rare EtOH intake, x-ray tech Allergies Allergy/AdvReac Type Severity Reaction Status Date / Time lisinopril Allergy Severe Face, Verified 12/28/24 07:56 Lips, Tongue Edema vancomycin Allergy Severe Red Man Verified 12/28/24 07:56 Syndrome celecoxib Allergy Intermediate "skin Verified 12/28/24 07:56 turned pinkish" morphine Allergy Intermediate Itchiness Verified 12/28/24 07:56 silver Allergy Intermediate Itchiness, Verified 12/28/24 07:56 Redness oxycodone AdvReac Intermediate Headache Verified 01/19/25 01:43 Penicillins AdvReac Intermediate Fatigue/Trouble Verified 12/28/24 07:56 Walking Home Medications Medication Instructions Recorded Confirmed Type escitalopram oxalate 20 mg tablet 20 mg PO QAM 05/24/19 01/19/25 History (Lexapro) hydrochlorothiazide 25 mg tablet 25 mg PO QAM 05/24/19 01/19/25 History loratadine 10 mg tablet (Claritin) 10 mg PO QAM 05/24/19 01/19/25 History lansoprazole 30 mg capsule,delayed 30 mg PO QAM 02/07/22 01/19/25 History release (Prevacid) trazodone 50 mg tablet 50 mg PO HS 07/19/23 01/19/25 History calcium 250 mg tablet 250 mg PO QAM 12/04/24 01/19/25 History famotidine 40 mg tablet 40 mg PO HS 12/04/24 01/19/25 History ibuprofen 200 mg tablet 1,600 - 2,400 mg PO Q6H PRN Pain 12/04/24 01/19/25 History metformin 500 mg tablet,extended 500 mg PO QPM 12/04/24 01/19/25 History release 24 hr tirzepatide (weight loss) 7.5 8.5 mg subcut WK 12/04/24 01/19/25 History mg/0.5 mL subcutaneous solution vitamin D3 250 mcg (10,000 1 cap PO QAM 12/04/24 01/19/25 History unit)-vitamin K2 45 mcg capsule Past Med/Surg History Problem List (Updated 01/19/25 @ 02:33 by Sloan Kwong MD) History of lumbar surgery (Acute) Leukocytosis (Acute) Tachycardia (Acute) Cellulitis (Acute) Wound infection (Acute) Sepsis (Acute) Status post lumbar spine surgery for decompression of spinal cord Acute postoperative anemia due to expected blood loss Other spondylosis with radiculopathy, lumbar region Pulmonary hypertension Severe obstructive sleep apnea Nocturnal hypoxemia HTN (hypertension) Cervical stenosis of spinal canal Encounter for pre-operative examination GERD (gastroesophageal reflux disease) Obesity Insomnia Lumbar stenosis with neurogenic claudication (Acute 03/10/14) Medical History Nocturnal hypoxemia 2L O2 HS with CPAP [facility] Constipation R/t tirzepatide per patient Prediabetes Oral/Weekly Inj History of anemia No blood transfusion/iron infusion hx Hx of migraines Frequent headaches Chronic cough Insomnia Hypertension GERD (gastroesophageal reflux disease) 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 Occasional headaches/facial numbness, at baseline History of COVID-19 06/2021: congestion, fatigue, GI upset 05/2023: congestion, cough, nausea, diarrhea > resolved Vertigo Intermittent episodes Degenerative disc disease Hiatal hernia Depression Sleep apnea 2L O2 HS with CPAP [facility] Surgical History (Updated 01/19/25 @ 02:33 by Sloan Kwong MD) History of wisdom tooth extraction History of lumbar surgery x2 Hx of fusion of cervical spine (02/2022) History of surgery on left wrist hardware present History of esophagogastroduodenoscopy (EGD) History of cataract surgery Left History of cardiac cath 2017 ([facility], [place])- "normal coronary arteries" History of laparoscopy several History of hysterectomy History of arthroplasty of knee Right x3, left x1 History of tonsillectomy History of tooth extraction History of dilatation and curettage History of colonoscopy Family History Father Colorectal cancer Mother Diabetes Hypertension Brother Cancer of kidney Social History Smoking Status: Never smoker Second Hand Exposure: No; Do You Dip or Chew Tobacco: No; Hx Alcohol Use: No Hx Substance Use: No Preferred Language: [place] Communication Ability: Effective Dispute Resolution Analyst Required: No Beliefs That Will Affect Care: None marital status: / Current Living Situation: Alone Other Information That Helps Us Care for You: No Feels Safe at Home: Yes Safety Concerns: Feels Safe At This Time Assistive Devices: Glasses and Walker Review of Systems Review of Systems: As per HPI, all other systems reviewed and negative Physical Exam Physical Exam: GENERAL: Comfortable, pleasant, morbidly obese, no respiratory distress, lying on her left side SKIN: Pallor, warm HEENT: bespectacled, pale, palpebral conjunctivae, no ptosis, dry buccal mucosa NECK : Supple, short neck, no tenderness CHEST : CTA, no tenderness HEART : Tachycardic, no obvious murmurs ABDOMEN: Some distention, nontender BACK : Well coaptated incision low back with minimal surrounding erythema, minimal lumbar tenderness EXTREMITIES : Bilateral LE swelling, no LE tenderness, palpable pulses, no other conspicuous deformities noted NEUROLOGIC : Coherent, no facial asymmetry, no other gross focality Results & Data Results & Data Vital Signs (Past 12 Hours) Vital Signs Temp Pulse Pulse Resp BP BP Pulse Ox 01/19/25 03:53 01/19/25 03:28 36.8 C 104 H 16 127/84 93 01/19/25 01:56 36.9 C 01/19/25 00:16 119 H 22 126/79 98 01/18/25 23:51 108 H 20 133/72 96 01/18/25 23:18 112 H 22 146/82 H 96 01/18/25 23:17 111 H 01/18/25 22:49 38.2 C H 118 H 20 135/83 98 O2 Del Method O2 Flow Rate 01/19/25 03:53 Room Air, Nasal Cannula, CPAP 2 01/19/25 03:28 Room Air, Nasal Cannula, CPAP 2 01/19/25 01:56 01/19/25 00:16 01/18/25 23:51 01/18/25 23:18 01/18/25 23:17 01/18/25 22:49 Room Air Laboratory Results Laboratory Results WBC 13.69 K/ul (4.8-10.8) H 01/18/25 23:23 RBC 3.78 M/uL (4.20-5.40) L 01/18/25 23:23 Hgb 10.4 g/dl (12.0-16.0) L 01/18/25 23:23 Hct 32.7 % (37.0-47.0) L 01/18/25 23:23 MCV 86.5 fL (80.0-100.0) 01/18/25 23:23 MCH 27.5 pg (25.0-34.0) 01/18/25 23:23 MCHC 31.8 g/dL (32.0-36.0) L 01/18/25 23:23 RDW Std Deviation 43.4 fL (36.4-46.3) 01/18/25 23: RDW Coeff of Macho 13.8 % (11.5-14.5) 01/18/25 23:23 Plt Count 377 K/uL (130-400) 01/18/25 23:23 MPV 8.8 fL (9.4-12.4) L 01/18/25 23:23 Immature Gran % (Auto) 0.4 % 01/18/25 23:23 Neut % (Auto) 81.0 % 01/18/25 23:23 Lymph % (Auto) 6.9 % 01/18/25 23:23 [place] % (Auto) 10.5 % 01/18/25 23:23 Eos % (Auto) 0.7 % 01/18/25 23:23 Baso % (Auto) 0.5 % 01/18/25 23:23 Neut # (Auto) 11.07 K/uL (1.40-6.50) H 01/18/25 23:23 Lymph # (Auto) 0.95 K/uL (1.20-3.40) L 01/18/25 23:23 [place] # (Auto) 1.44 K/uL (0.11-0.59) H 01/18/25 23:23 Eos # (Auto) 0.10 K/uL (0.00-0.50) 01/18/25 23:23 Baso # (Auto) 0.07 K/uL (0.00-0.20) 01/18/25 23:23 Immature Gran # (Auto) 0.06 K/uL (0.01-0.20) 01/18/25 23:23 PT 12.0 Seconds (9.0-12.0) 01/18/25 23:23 INR 1.1 (0.9-1.1) 01/18/25 23:23 APTT 35 Seconds (21-31) H 01/18/25 23:23 PTT Ratio 1.3 01/18/25 23:23 Sodium 131 mmol/L (136-145) L 01/18/25 23:23 Potassium 3.8 mmol/L (3.5-5.1) 01/18/25 23:23 Chloride 96 mmol/L (98-107) L 01/18/25 23:23 Carbon Dioxide 27 mmol/L (21-32) 01/18/25 23:23 Anion Gap 8 (3-11) 01/18/25 23:23 BUN 9 mg/dl (6-23) 01/18/25 23:23 Creatinine 0.56 mg/dl (0.6-1.2) L 01/18/25 23:23 Est Cr Clr Drug Dosing Not Reportable 01/18/25 23:23 eGFR 105.07 01/18/25 23:23 BUN/Creatinine Ratio 16.1 (10-20) 01/18/25 23:23 Glucose 152 mg/dl (70-99(Fasting)) H 01/18/25 23:23 Osmolality 275 mOsm/kg (280-300) L 01/18/25 23:23 Lactate 1.2 mmol/L (0.4-2.0) 01/18/25 23:23 Calcium 8.8 mg/dl (8.6-10.3) 01/18/25 23:23 Magnesium 1.6 mg/dl (1.7-2.4) L 01/18/25 23:23 Total Bilirubin 0.5 mg/dl (0.2-1.0) 01/18/25 23:23 AST 17 U/L (13-39) 01/18/25 23:23 ALT 18 U/L (7-52) 01/18/25 23:23 Alkaline Phosphatase 115 U/L (34-104) H 01/18/25 23:23 Troponin I High Sens 7.6 pg/ml (0-14) 01/18/25 23:23 Total Protein 7.1 gm/dl (6.0-8.3) 01/18/25 23:23 Albumin 3.3 gm/dl (3.4-5.0) L 01/18/25 23:23 Globulin 3.8 gm/dl (2.5-4.0) 01/18/25 23:23 Albumin/Globulin Ratio 0.9 (0.9-2) 01/18/25 23:23 Procalcitonin 0.30 ng/ml (0-0.5) 01/18/25 23:23 TSH 0.895 uIu/ml (0.300-4.500) 01/18/25 23:23 Urine Color Yellow 01/19/25 01:15 Urine Appearance Clear (Clear) 01/19/25 01:15 Urine pH 6.5 (4.5-7.5) 01/19/25 01:15 Ur Specific [place] 1.022 (1.000-1.030) 01/19/25 01:15 Urine Protein Trace (Negative) H 01/19/25 01:15 Urine Glucose (UA) Negative (Negative) 01/19/25 01:15 Urine Ketones Trace (Negative) H 01/19/25 01:15 Urine Blood Negative (Negative) 01/19/25 01:15 Urine Nitrite Negative (Negative) 01/19/25 01:15 Urine Bilirubin Negative (Negative) 01/19/25 01:15 Urine Urobilinogen Negative (Negative) 01/19/25 01:15 Ur Leukocyte Esterase 1+ (Negative) H 01/19/25 01:15 Urine WBC (Auto) 0-5 /hpf (0-5) 01/19/25 01:15 Urine RBC (Auto) 0-2 /hpf (0-2) 01/19/25 01:15 U Hyaline Cast (Auto) 0-2 /lpf (0-2) 01/19/25 01:15 U Epithel Cells (Auto) 3-5 /hpf (0-2) H 01/19/25 01:15 Urine Bacteria (Auto) None Seen (None Seen) 01/19/25 01:15 Urine Comment 01/19/25 01:15 SARS-CoV-2 (PCR) NEGATIVE (Negative) 01/19/25 00:11 Influenza Type A (PCR) Negative (Neg) 01/19/25 00:11 Influenza Type B (PCR) Negative (Neg) 01/19/25 00:11 RSV (RT-PCR) Negative (Neg) 01/19/25 00:11 Impressions Chest X-Ray 01/18/25 23:49 EXAM: XR chest 1V portable CLINICAL HISTORY: Fever. TECHNIQUE: An X-ray image of the chest is obtained in AP projection. COMPARISON: CR dated 12/14/2024 FINDINGS: Pulmonary Parenchyma: Lungs are clear bilaterally. No evidence of consolidation, collapse, or focal opacities. No pulmonary nodules are identified. No evidence of pleural effusion or pleural thickening. Heart and Mediastinum: Heart size and shape are normal. No mediastinal widening or masses. No hilar or mediastinal lymphadenopathy. Bony Thorax: Bony thorax appears intact without fractures or deformities. Soft Tissues: Soft tissues overlying the chest wall are unremarkable. Evidence of anterior cervical fixation. IMPRESSION: 1. Normal chest X-ray. No acute cardiopulmonary abnormalities are identified. 2. No interval changes. Electronically signed by Brodie Lin 01-19-2025 01:19 AM Lumbar Spine MRI 01/19/25 01:36 EXAM: MR lumbar spine wo/w con CLINICAL HISTORY: surgical wound infection TECHNIQUE: MRI of the lumbar spine was performed without the administration of intravenous contrast. Sequences obtained include sagittal T1-weighted, T2-weighted, STIR (Short Tau Inversion Recovery), and axial T2-weighted sequences. COMPARISON: No previous studies are available for comparison. FINDINGS: Status post lower lumbar fixation with laminectomy,metallic rods and transpedicular screws insitu causing susceptibility artefacts. Terminal lumbar segment vertebra is labeled as L5. Grade I anterolisthesis of L4 over L5 vertebra is noted. Mild exaggeration of the lumbar lordosis is noted. Transpedicular fixation devices are noted involving L3, L4, L5, S1 vertebral levels producing susceptibility artifacts in these areas. Resultant suboptimal evaluation of the vertebrae, spinal canal and adjacent soft tissue is noted. Degenerative changes are noted in the visualized spine in the form of marginal osteophytes, endplate irregularities, reduction in the disc heights, degenerated discs at all the levels. Suspicious fusion of L4 and L5 vertebra is noted. Extensive posterior paraspinal soft tissue edema, fat stranding and fluid collection is noted. Large collection is noted within the subcutaneous plane of the lumbar region. It measures approximately 11.4 x 10.8 x 15.9 cm (AP x TR x CC) in size. It has relatively thick jiang. Multiple septations are noted within it. Multiple hypointense foci are noted within this collection, may represent air foci or calcifications. This fluid appears to be indenting the epidural fat at distal lumbar and the proximal sacral level. However, no obvious extension within the spinal canal or compression of the thecal sac is noted. Possibility of infected collection/abscess. Mild posterior disc bulges are noted at L1-L2, L2-L3 levels indenting thecal sac, not causing any significant neural compression. Suboptimal evaluation at L3-L4, L4-L5, L5-S1 levels due to susceptibly artifacts. IMPRESSION: Terminal lumbar segment vertebra is labeled as L5. Grade I anterolisthesis of L4 over L5 vertebra is noted. Mild exaggeration of the lumbar lordosis is noted. Transpedicular fixation devices are noted involving L3, L4, L5, S1 vertebral levels producing susceptibility artifacts in these areas. Resultant suboptimal evaluation of the vertebrae, spinal canal and adjacent soft tissue is noted. Degenerative changes are noted in the visualized spine as described. Suspicious fusion of L4 and L5 vertebra is noted. Extensive posterior paraspinal soft tissue edema, fat stranding and fluid collection is noted. Large collection is noted within the subcutaneous plane of the lumbar regionas described above. Possibility of infected collection/abscess. Mild posterior disc bulges are noted at L1-L2, L2-L3 levels indenting thecal sac, not causing any significant neural compression. Suboptimal evaluation at L3-L4, L4-L5, L5-S1 levels due to susceptibly artifacts. Electronically signed by Naveen Andrade 01-19-2025 03:55 AM Code Status & VTE Plan VTE Prophylaxis Plan VTE Prophylaxis will be ordered: Yes (1) Sepsis Sepsis acute organ dysfunction status: without acute organ dysfunction Sepsis type: sepsis due to unspecified organism Qualified Code(s): A41.9 - Sepsis, unspecified organism
[2025-01-19] MEDS: 4.5GM X1 IV STA (06:18)
[2025-01-19 07:33] LABS: Hematocrit (blood only) 32.1 % (37.0-47.0); Hemoglobin 10.2 g/dl (12.0-16.0); Immature Granulocytes # (auto) 0.05 K/uL (0.01-0.20); Immature Granulocytes % (auto) 0.4 %; Mean Corpuscular Hemoglobin 27.4 pg (25.0-34.0); Mean Corpuscular Volume 86.3 fL (80.0-100.0); Platelet Count 405 K/uL (130-400); RDW Standard Deviation 43.8 fL (36.4-46.3); Red Blood Count 3.72 M/uL (4.20-5.40); White Blood Count 13.35 K/ul (4.8-10.8)
[2025-01-19 07:56] LABS: Anion Gap 7.0 (3-11); Blood Urea Nitrogen 7.0 mg/dl (6-23); Calcium 8.4 mg/dl (8.6-10.3); Carbon Dioxide 28.0 mmol/L (21-32); Chloride 101.0 mmol/L (98-107); Creatinine Clr Calc Pharmacy 153.2 ml/min; Glucose 143.0 mg/dl (70-99(Fasting)); Magnesium 2.0 mg/dl (1.7-2.4); Potassium 3.7 mmol/L (3.5-5.1); Sodium 136.0 mmol/L (136-145)
[2025-01-19] MEDS ORDERED: CEFEPIME 2000MG 2,000 MG/20 ML SYR IV SCH (08:00)
[2025-01-19] MEDS: ESCITALOPRAM OXALATE 20 MG TAB PO SCH (09:06)
[2025-01-19] MEDS: LORATADINE 10 MG TAB PO SCH (09:06)
--- NOTE | 2025-01-19 09:17 | Hospitalist Progress Note ---
Date of Service January 19, 2025 Assessment & Plan (1) Sepsis: Plan: Sepsis Lumbar spinal abscess--POA --S/P irrigation and debridement of lumbar spine, wound VAC placement by Dr. Lyons on 01/19/2025 --Lumbar MRI:Terminal lumbar segment vertebra is labeled as L5. Grade I anterolisthesis of L4 over L5 vertebra is noted. Mild exaggeration of the lumbar lordosis is noted. Transpedicular fixation devices are noted involving L3, L4, L5, S1 vertebral levels producing susceptibility artifacts in these areas. Resultant suboptimal evaluation of the vertebrae, spinal canal and adjacent soft tissue is noted. Degenerative changes are noted in the visualized spine as described. Suspicious fusion of L4 and L5 vertebra is noted. Extensive posterior paraspinal soft tissue edema, fat stranding and fluid collection is noted. Large collection is noted within the subcutaneous plane of the lumbar regionas described above. Possibility of infected collection/abscess. Mild posterior disc bulges are noted at L1-L2, L2-L3 levels indenting thecal sac, not causing any significant neural compression. Suboptimal evaluation at L3-L4, L4-L5, L5-S1 levels due to susceptibly artifacts. --Blood, wound cultures pending -- Continue IV fluids --Continue Zosyn, daptomycin for now --Wound care, activity as per orthopedic spine --Appreciate orthopedic spine help Pain control as needed PT OT as able Hyponatremia Hold HCTZ Sodium levels improved with IV fluids Monitor Hypertension Resume HCTZ as able Monitor blood pressure PVD, carotid artery disease Moderate TR Mood disorder Continue home medications CHRISTIAN on CPAP Pulmonary hypertension Prediabetes: HbA1c 5.7 Morbid obesity--on metformin, tirzepatide DVT Px: SCDs re:procedure CODE STATUS Full code Admission and Anticipated Discharge Date Admission Date: January 19, 2025 Subjective Patient is seen and examined at bedside Admits to have back pain at surgical site Also had states having some nausea as well with dizziness with changing position Plan for I&D today Denies any chest pain, dyspnea, abdominal pain No other complaints Review of Systems Review of Systems: All systems reviewed & are unremarkable except as noted in Subjective Physical Exam Physical Exam: Physical Exam: Vitals signs as noted above General Appearance:Morbidly Obese, no apparent distress Head: normocephalic, Atraumatic Eyes: normal inspection, EOMI Neck: supple, Trachea midline Respiratory/Chest: Normal breath sounds, CTA, No accessory muscle use Cardiovascular: S1, S2, No murmur, tachycardia Abdomen/GI:Soft, Non tender, Bowel sounds present Back: Surgical site in dressing Extremities/Musculoskeletal:normal inspection, no edema Neurologic/Psych:AAOX3, grossly no focal neurological deficits Skin: normal color, warm Results & Data Results & Data Vital Signs (Past 12 Hours) Vital Signs Temp Pulse Pulse Resp BP BP Pulse Ox 01/19/25 07:40 37.3 C 105 H 19 120/78 92 01/19/25 03:53 01/19/25 03:28 36.8 C 104 H 16 127/84 93 01/19/25 01:56 36.9 C 01/19/25 00:16 119 H 22 126/79 98 01/18/25 23:51 108 H 20 133/72 96 01/18/25 23:18 112 H 22 146/82 H 96 01/18/25 23:17 111 H 01/18/25 22:49 38.2 C H 118 H 20 135/83 98 O2 Del Method O2 Flow Rate 01/19/25 07:40 Room Air 01/19/25 03:53 Room Air, Nasal Cannula, CPAP 2 01/19/25 03:28 Room Air, Nasal Cannula, CPAP 2 01/19/25 01:56 01/19/25 00:16 01/18/25 23:51 01/18/25 23:18 01/18/25 23:17 01/18/25 22:49 Room Air Laboratory Results Short CBC 01/18/25 01/19/25 Range/Units 23:23 06:28 WBC 13.69 H 13.35 H (4.8-10.8) K/ul Hgb 10.4 L 10.2 L (12.0-16.0) g/dl Hct 32.7 L 32.1 L (37.0-47.0) % Plt Count 377 405 H (130-400) K/uL BMP 01/18/25 01/19/25 23:23 06:28 Sodium 131 L 136 Potassium 3.8 3.7 Chloride 96 L 101 Carbon Dioxide 27 28 BUN 9 7 Creatinine 0.56 L 0.53 L Glucose 152 H 143 H Calcium 8.8 8.4 L Liver Function 01/18/25 Range/Units 23:23 Total Bilirubin 0.5 (0.2-1.0) mg/dl AST 17 (13-39) U/L ALT 18 (7-52) U/L Alkaline Phosphatase 115 H (34-104) U/L Albumin 3.3 L (3.4-5.0) gm/dl Urine 01/19/ Range/Units 01:15 Urine Color Yellow Urine Appearance Clear (Clear) Urine pH 6.5 (4.5-7.5) Ur Specific [place] 1.022 (1.000-1.030) Urine Protein Trace H (Negative) Urine Glucose (UA) Negative (Negative) (1) Sepsis Sepsis acute organ dysfunction status: without acute organ dysfunction Sepsis type: sepsis due to unspecified organism Qualified Code(s): A41.9 - Sepsis, u nspecified organism
[2025-01-19] MEDS: ONDANSETRON INJ 2 MG/ML 2 ML VIAL IV PRN (09:25)
[2025-01-19] MEDS: HYDROCODONE/ACETAMOPHEN 5/325MG TAB PO PRN (10:55)
[2025-01-19] MEDS: PIPERACILLIN/TAZOBACTAM 4.5 GM/100 ML BAG IV SCH (11:17)
[2025-01-19] MEDS ORDERED: MIDAZOLAM HCL 1 MG/ML 2ML VIAL ONE (11:43)
[2025-01-19] MEDS ORDERED: LIDOCAINE 2% 2 ML VIAL/AMP(20MG/ML) INFIL ONE (11:45)
[2025-01-19] MEDS ORDERED: PROPOFOL IV EMULSION 10 MG/ML 20 ML VIAL IV ONE (11:46)
[2025-01-19] MEDS ORDERED: ROCURONIUM BROMIDE 10 MG/ML 5 ML VIAL IV ONE (11:46)
[2025-01-19] MEDS ORDERED: HYDROmorphone INJ 1 MG/ML SYRINGE IV PRN (11:56)
[2025-01-19] MEDS ORDERED: ONDANSETRON INJ 2 MG/ML 2 ML VIAL IV PRN (11:56)
[2025-01-19] MEDS ORDERED: HYDROmorphone INJ 2 MG/ML SYR/VIAL IV PRN (11:56)
[2025-01-19] MEDS ORDERED: ATROPINE SULFATE 0.1 MG/ML 10ML SYR IV PRN (11:56)
--- NOTE | 2025-01-19 12:00 | History & Physical Bridge Note ---
Date of Service January 19, 2025 History & Physical Bridge Note I have examined the patient, reviewed the History & Physical and in the interval since the performance of the History & Physical I have noted the following changes of clinical significance: no changes noted Patient presents last evening with fevers chills and evidence of sepsis. She has drainage from her lumbar incision from the procedure performed approximately 4 weeks ago. MRI confirms large fluid collection. Wound cultures are demonstrating gram-positive cocci. Subsequently recommending emergent irrigation and debridement of the lumbar spine.
[2025-01-19] MEDS: ceFAZolin 330 MG/ML 1 GM VIAL ONE (12:39)
[2025-01-19] MEDS ORDERED: SUGAMMADEX SODIUM 200 MG/2 ML VIAL IV ONE (12:52)
[2025-01-19] MEDS: BUPIVACAINE/EPINEPHRINE 0.25% 1:200,000 30 ML VIAL ONE (12:55)
--- NOTE | 2025-01-19 13:01 | Operative Report ---
Post Operative Report Pre & Post Diagnosis Operation Date: 01/19/25 09:35 Pre-Op Diagnosis: #1 abscess lumbar spine in the supra fascial space Post-Op Diagnosis: Same I identified the patient and participated in the time-out.: Yes Procedure Operation Date: 01/19/25 09:35 Actual Procedures #1 irrigation and debridement of the lumbar spine. #2 placement of wound VAC Surgeon Jaguar Lyons DO Flight Test Supervisor Nevaeh Akins Estimated Blood Loss 100 Findings See Below Patient had approximately 4 to 450 cc of purulent fluid in the supra fascial layer of the lumbar spine. Specimens Cultures taken in the subfascial and suprafascial layers. Indications This is a 60-year-old female who presents last evening to the emergency room with evidence of sepsis. An MRI of the lumbar spine was obtained demonstrating significant fluid collection just superficial to the fascia with a small pocket in the distal epidural space. In light of her clinical presentation I am recommending emergent I&D of the lumbar spine. Description of Procedure Patient was met with identified informed consent obtained. Patient was then taken to the operative suite underwent intubation placed in a prone position on the [place] table atop the [place] frame. All bony prominences well-padded I suspected to ensure no external precipice upon them. This point the lumbar spine was prepped and draped normal sterile fashion. Sharp dissection was performed through the previous incision site to the suprafascial layer. 100s of cc of purulent fluid was identified and evacuated. The infection had eroded into the subcutaneous fat. The area was debrided. I did open the fascial layer and evacuated a small collection of fluid that was not purulent in nature. Several liters of antibiotic saline were then irrigated throughout the wound. The area was debrided to healthy viable bleeding tissue. The fascia was then closed with subcutaneous Vicryl and a wound VAC was placed. Patient was then awakened and taken to PACU stable condition. Please note Nevaeh Akins was present out the entire procedure involved the patient positioning complex portion of the surgery and final skin closure. I attest to the content of the Intraoperative Record and any orders documented therein. Any exceptions are noted below.
[2025-01-19] MEDS ORDERED: HYDROmorphone INJ 1 MG/ML SYRINGE ONE (13:10)
--- NOTE | 2025-01-19 14:02 | Anesthesiology Progress Note ---
Date of Service January 19, 2025 Anesthesia Post Procedure Vital Signs Vital Signs: Temp Pulse Pulse Pulse Resp BP BP 01/19/25 13:50 108 H 14 118/73 01/19/25 13:40 110 H 18 125/74 01/19/25 13:30 37 C 125 H 12 128/67 01/19/25 11:59 38.6 C H 80 18 143/89 H 01/19/25 11:40 37.9 C H 126 H 22 115/69 01/19/25 10:12 98 H 01/19/25 07:40 37.3 C 105 H 19 120/78 01/19/25 03:53 01/19/25 03:28 36.8 C 104 H 16 127/84 01/19/25 01:56 36.9 C 01/19/25 00:16 119 H 22 126/79 01/18/25 23:51 108 H 20 133/72 01/18/25 23:18 112 H 22 146/82 H 01/18/25 23:17 111 H 01/18/25 22:49 38.2 C H 118 H 20 135/83 Pulse Ox O2 Del Method O2 Flow Rate 01/19/25 13:50 97 Nasal Cannula 2 01/19/25 13:40 98 Oxymask 3 01/19/25 13:30 99 Oxymask 6 01/19/25 11:59 91 Room Air 01/19/25 11:40 91 Room Air 01/19/25 10:12 01/19/25 07:40 92 Room Air 01/19/25 03:53 Room Air, Nasal Cannula, CPAP 2 01/19/25 03:28 93 Room Air, Nasal Cannula, CPAP 2 01/19/25 01:56 01/19/25 00:16 98 01/18/25 23:51 96 01/18/25 23:18 96 01/18/25 23:17 01/18/25 22:49 98 Room Air Pain Intensity Back: Pain Intensity: 3 Transfer of Care Handoff Completed per policy Notes Mental Status: alert / awake / arousable Patient Amnestic to Procedure: Yes Nausea / Vomiting: adequately controlled Pain: adequately controlled Airway Patency, RR, SpO2: stable & adequate BP & HR: stable & adequate Hydration State: stable & adequate Anesthetic Complications: no major complications apparent and Pt Satisfied with anesthetic care
[2025-01-19] MEDS: FAMOTIDINE 40 MG TABLET PO SCH (20:51)
[2025-01-20] MEDS: DAPTOmycin 600 MG in SYRINGE 0 ML IV SCH (03:07)
[2025-01-20 07:26] LABS: Hematocrit (blood only) 28.2 % (37.0-47.0); Hemoglobin 8.8 g/dl (12.0-16.0); Mean Corpuscular Hemoglobin 27.3 pg (25.0-34.0); Mean Corpuscular Volume 87.6 fL (80.0-100.0); Platelet Count 384 K/uL (130-400); RDW Standard Deviation 44.9 fL (36.4-46.3); Red Blood Count 3.22 M/uL (4.20-5.40); White Blood Count 12.07 K/ul (4.8-10.8)
[2025-01-20 07:43] LABS: Anion Gap 4.0 (3-11); Blood Urea Nitrogen 9.0 mg/dl (6-23); Calcium 8.7 mg/dl (8.6-10.3); Carbon Dioxide 32.0 mmol/L (21-32); Chloride 104.0 mmol/L (98-107); Creatinine Clr Calc Pharmacy 168.6 ml/min; Glucose 160.0 mg/dl (70-99(Fasting)); Magnesium 2.1 mg/dl (1.7-2.4); Potassium 4.3 mmol/L (3.5-5.1); Sodium 140.0 mmol/L (136-145)
--- NOTE | 2025-01-20 12:01 | Orthopedic Progress Note ---
Date of Service January 20, 2025 Assessment & Plan (1) Wound infection: Plan: Patient is status post I&D lumbar spine with evacuation of subcutaneous abscess. Wound VAC in place. We will initiate physical therapy. Await final cultures for final course of antibiotic recommendations. Admission and Anticipated Discharge Date Admission Date: January 19, 2025 Subjective Patient's pain is much improved. No significant back pain or leg pain. Physical Exam Physical Exam: Patient is in the chair at the bedside. She looks very comfortable. Good strength testing. Results & Data Vital Signs (Past 12 Hours) Vital Signs Temp Pulse Pulse Pulse Resp BP Pulse Ox 01/20/25 11:19 36.8 C 86 18 120/82 96 01/20/25 08:37 01/20/25 08:17 36.4 C L 73 18 125/79 94 01/20/25 05:32 68 01/20/25 03:50 36.6 C 81 20 136/85 100 O2 Del Method 01/20/25 11:19 Room Air 01/20/25 08:37 Room Air 01/20/25 08:17 Room Air 01/20/25 05:32 01/20/25 03:50 Room Air Queries Orthopedic Spine Obesity: Yes
--- NOTE | 2025-01-20 15:04 | Hospitalist Progress Note ---
Date of Service January 20, 2025 Assessment & Plan (1) Sepsis: Plan: Sepsis Lumbar spinal abscess--POA --S/P irrigation and debridement of lumbar spine, wound VAC placement by Dr. Lyons on 01/19/2025 --Lumbar MRI:Terminal lumbar segment vertebra is labeled as L5. Grade I anterolisthesis of L4 over L5 vertebra is noted. Mild exaggeration of the lumbar lordosis is noted. Transpedicular fixation devices are noted involving L3, L4, L5, S1 vertebral levels producing susceptibility artifacts in these areas. Resultant suboptimal evaluation of the vertebrae, spinal canal and adjacent soft tissue is noted. Degenerative changes are noted in the visualized spine as described. Suspicious fusion of L4 and L5 vertebra is noted. Extensive posterior paraspinal soft tissue edema, fat stranding and fluid collection is noted. Large collection is noted within the subcutaneous plane of the lumbar regionas described above. Possibility of infected collection/abscess. Mild posterior disc bulges are noted at L1-L2, L2-L3 levels indenting thecal sac, not causing any significant neural compression. Suboptimal evaluation at L3-L4, L4-L5, L5-S1 levels due to susceptibly artifacts. --Has been on I/V Zosyn, daptomycin for now - wound culture is growing Staph aureus --Blood cultures have been negative --Wound care, activity as per orthopedic spine --Appreciate orthopedic spine help --Pain control as needed --PT OT as able --Clinically much better and will continue with wound VAC and also PT OT evaluation Hyponatremia Hold HCTZ Sodium levels improved with IV fluids Sodium level has been normalized Hypertension Resume HCTZ as able Monitor blood pressure PVD, carotid artery disease Moderate TR Mood disorder Continue home medications CHRISTIAN on CPAP Pulmonary hypertension Prediabetes: HbA1c 5.7 Morbid obesity--on metformin, tirzepatide DVT Px: SCDs re:procedure CODE STATUS Full code Admission and Anticipated Discharge Date Admission Date: January 19, 2025 Subjective 01/20/2025 The patient was seen and examined in medical telemetry unit She has been feeling a lot better with minimal pain at the back and no radicular symptoms No fever and/or chills and denies any chest pain or palpitation No abdominal pain, nausea and or vomiting Review of Systems Review of Systems: All systems reviewed and unremarkable except as noted below Physical Exam Physical Exam: Sitting on a chair without any acute distress Constitutional: well developed, well nourished, + ill appearing and + obese Eyes: PERRL, conjunctivae normal, anicteric sclerae ENMT: external ear and nose normal, oropharynx normal Neck: trachea midline, no thyromegaly Respiratory: no respiratory distress Auscultation: lungs clear to auscultation bilaterally Cardiovascular: Rate/Rhythm: regular rate and regular rhythm; not tachycardic Heart Sounds: normal S1 and normal S2; no murmur Extremities: + edema (Trace edema bilaterally) Gastrointestinal (Abdomen): Inspection/Auscultation: normal bowel sounds; abdomen not distended Percussion/Palpation: abdomen soft; abdomen nontender Musculoskeletal: Minimal back pain but no acute arthritis involving any of the joint Neurologic: normal touch/pain/proprioception and moves all extremities; no focal motor deficits Psychiatric: A+Ox3, euthymic affect Lymphatic: no cervical or axillary lymphadenopathy Results & Data Results & Data Vital Signs (Past 12 Hours) Vital Signs Temp Pulse Pulse Pulse Resp BP Pulse Ox 01/20/25 13:08 80 01/20/25 11:19 36.8 C 86 18 120/82 96 01/20/25 08:37 01/20/25 08:17 36.4 C L 73 18 125/79 94 01/20/25 05:32 68 01/20/25 03:50 36.6 C 81 20 136/85 100 O2 Del Method 01/20/25 13:08 01/20/25 11:19 Room Air 01/20/25 08:37 Room Air 01/20/25 08:17 Room Air 01/20/25 05:32 01/20/25 03:50 Room Air Laboratory Results Short CBC 01/20/25 Range/Units 06:45 WBC 12.07 H (4.8-10.8) K/ul Hgb 8.8 L (12.0-16.0) g/dl Hct 28.2 L (37.0-47.0) % Plt Count 384 (130-400) K/uL BMP 01/20/25 06:45 Sodium 140 Potassium 4.3 Chloride 104 Carbon Dioxide 32 BUN 9 Creatinine 0.48 L Glucose 160 H Calcium 8.7 Medications Administered Current Inpatient Medications Acetaminophen (Acetaminophen 325 Mg Tab) 650 mg PO QID PRN PRN Reason: pain/fever Stop: 02/18/25 01:37 Hydrocodone Bitart/Acetaminophen (Hydrocodone/Acetamophen 5/325mg Tab) 1 tab PO QID PRN PRN Reason: Pain Stop: 02/02/25 01:37 Last Admin: 01/20/25 08:05 Dose: 1 tab Escitalopram Oxalate (Escitalopram Oxalate 20 Mg Tab) [facility] [place] Stop: 02/18/25 08:59 Last Admin: 01/20/25 08:06 Dose: 20 mg Famotidine (Famotidine 40 Mg Tablet) 40 mg PO [facility] Stop: 02/18/25 20:59 Last Admin: 01/19/25 20:51 Dose: 40 mg Hydromorphone HCl (Hydromorphone Inj 0.5 Mg/0.5 Ml Syr) 0.5 mg IV Q6H PRN PRN Reason: Pain Stop: 02/02/25 01:38 Daptomycin 600 mg/ Syringe 12 mls @ 6 mls/min IV Q24H [facility]; Protocol Stop: 01/27/25 00:44 Last Admin: 01/20/25 03:07 Dose: 6 mls/min Promethazine HCl (Phenergan) 12.5 mg in 50.5 mls @ 202 mls/hr IV Q6H PRN PRN Reason: Nausea And Vomiting Stop: 02/18/25 01:37 Piperacillin Sod/Tazobactam Sod (Zosyn) 4.5 gm in 100 mls @ 25 mls/hr IV Q8H [facility]; Protocol Stop: 03/02/25 09:59 Last Admin: 01/20/25 12:35 Dose: 25 mls/hr Loratadine (Loratadine 10 Mg Tab) [facility] [place] Stop: 02/18/25 08:59 Last Admin: 01/20/25 08:06 Dose: 10 mg Lorazepam (Lorazepam 0.5 Mg Tab) 0.5 mg PO TID PRN PRN Reason: Anxiety Stop: 02/18/25 01:37 Pantoprazole Sodium (Pantoprazole 40 Mg Tab) 40 [facility] [place] Stop: 02/18/25 08:59 Last Admin: 01/20/25 08:06 Dose: 40 mg Trazodone HCl (Trazodone Hcl 50 Mg Tab) 50 mg PO [facility] Stop: 02/18/25 20:59 Last Admin: 01/19/25 20:51 Dose: 50 mg (1) Sepsis Sepsis acute organ dysfunction status: without acute organ dysfunction Sepsis type: sepsis due to unspecified organism Qualified Code(s): A41.9 - Sepsis, unspecified organism
[2025-01-21 07:52] LABS: Hematocrit (blood only) 27.2 % (37.0-47.0); Hemoglobin 8.5 g/dl (12.0-16.0); Mean Corpuscular Hemoglobin 26.8 pg (25.0-34.0); Mean Corpuscular Volume 85.8 fL (80.0-100.0); Platelet Count 450 K/uL (130-400); RDW Standard Deviation 45.7 fL (36.4-46.3); Red Blood Count 3.17 M/uL (4.20-5.40); White Blood Count 9.28 K/ul (4.8-10.8)
[2025-01-21 08:18] LABS: Immature Granulocytes # (auto) 0.08 K/uL (0.01-0.20); Immature Granulocytes % (auto) 0.9 %
--- NOTE | 2025-01-21 08:38 | Orthopedic Progress Note ---
Date of Service January 21, 2025 Assessment & Plan (1) Wound infection: Plan: Today is postoperative day 2 status post I&D lumbar spine with infection. She is currently continuing on IV daptomycin and Zosyn. She will need infectious disease consult. Ambulate ad douglas. around the room. Wound care team is involved regarding her wound VAC and settings. She ultimately wants to return home once medically stable Admission and Anticipated Discharge Date Admission Date: January 19, 2025 Subjective Dorothy is postoperative day 2 status post I&D lumbar spine with infection. She is currently on IV daptomycin and Zosyn. She feels a lot better. No leg pain. Blood cultures are negative. Wound cultures are growing out Staph aureus. She is passing flatus but no bowel movement. No new complaints. Wound VAC is on and functioning Review of Systems Review of Systems: All systems reviewed & are unremarkable except as noted in HPI & below Physical Exam Physical Exam: She is sitting up in bed eating breakfast in no acute distress wound VAC intact Strength is intact bilateral lower extremities Calf soft and nontender bilateral lower extremities Results & Data Vital Signs (Past 12 Hours) Vital Signs Temp Pulse Pulse Pulse Resp BP Pulse Ox 01/21/25 07:07 36.6 C 75 16 119/75 95 01/21/25 03:36 36.6 C 74 20 116/76 92 01/21/25 01:21 82 01/20/25 23:28 36.7 C 81 20 138/83 96 O2 Del Method 01/21/25 07:07 Room Air 01/21/25 03:36 Room Air 01/21/25 01:21 01/20/25 23:28 Room Air Queries Orthopedic Spine Obesity: Yes
--- NOTE | 2025-01-21 13:57 | Infectious Disease Consult ---
Date of Consultation January 21, 2025 Assessment & Plan (1) Hardware complicating wound infection: (2) MSSA (methicillin susceptible Staphylococcus aureus) infection: Plan ID Problem List: #History of removal of L4-L5 hardware, decompression, and fusion of L3-S1 on , who presents to [facility] on 01/18/25 c/b MSSA lumbar spinal infection involving hardware - Large paraspinal abscess with extension into the epidural space, now s/p I&D on 01/19/25 with Cx + MSSA # Obesity # Antibiotic allergies: vancomycin (infusion reaction red man syndrome), penicillins (fatigue, trouble walking tolerates pip-tazo) Impression: Maty Perkins is a 60-year-old woman with history of HTN, PVD, moderate TR, CHRISTIAN, pulmonary HTN, Ghanshyam syndrome, endometriosis, history of bilateral knee replacements, history of cervical spine fusion with hardware 02/2022, history of lumbar radiculopathy s/p prior lumbar hardware and most recently s/p removal of L4-L5 hardware, decompression, and fusion of L3-S1 on 12/28/24, who presents to [facility] on 01/18/25 with back pain, back wound drainage, fevers, and chills, found to have large paraspinal abscess with extension into the epidural space, now s/p I&D on 01/19/25 with Cx + MSSA. ID is consulted for MSSA lumbar spinal infection involving hardware. The patient was recently admitted to [facility] ortho spine service 12/2812/31/24 history of lumbar radiculopathy s/p prior lumbar hardware and most recently s/p removal of L4-L5 hardware, decompression, and fusion of L3-S1 on 12/28/24. Over the last few days, she noted low back pain and transient headaches. No neck pain. Two days prior to admission, she noted that her wound had clear drainage, and she developed low grade fevers to 100.2F, chills, sweats, and nausea. In the ED, T38.2, WBC 13.69 Hgb 10.4 plt 377 Cr 0.56 LFTs wnl. 01/19 wound Cx from the back grew MSSA. MRI of the lumbar spine was obtained demonstrating significant 11.4 x 10.8 x 15.9 cm fluid collection just superficial to the fascia with a small pocket in the distal epidural space c/f abscess. She was started on daptomycin and cefepime (which was changed to pip-tazo). She was seen by ortho spine and recommended for I&D, which was performed on 01/19/25 along with wound vac placement. Intraoperative findings included evacuation of 400 ccs of goyo purulence which was suprafascial; the fascial layer was then opened and a small collection of non-purulent fluid was noted. Discussed with ortho spine team on 01/21 who confirmed clinical suspicion for hardware-associated infection and agree with treatment with IV abx followed by PO suppression. 01/19 OR Cx growing MSSA. She has multiple areas of hardware, in addition to her new lumbar spinal hardware. She has a history of bilateral knee replacements, including 3 replacement surgeries in her R knee and lots of metal in her right leg, as well as cervical spinal infection and plates in her L hand 4th/5th metacarpals. Discussion Pt presenting within a few weeks after her previous surgery with large paraspinal abscess. Wound Cx and multiple OR Cx + MSSA. BCx are NGTD. Intraoperatively, the purulence appeared to be mostly suprafascial, though with a small lumbar epidural fluid collection that is also culture-positive for MSSA. This confirms MSSA spinal infection involving hardware. For the patients hardware-associated lumbar spinal infection, will recommend 6- weeks of IV abx, followed by PO suppressive abx for at least 3-6 months, if not longer/indefinitely. Will change to cefazolin to best target the MSSA. Discussed with ID pharmacist, noting pt to be 133 kg and BMI of 52. Will recommend higher- frequency dosing of cefazolin. Regarding PO suppression options, there are multiple, and would ensure that dosing is sufficient (per ID pharmacist would use double-dosing of cefadroxil or doxycycline as per below). Given isolation of Staph and involvement of hardware, will also start adjunctive rifampin to target biofilm formation, likely to be continued for at least 3-6 months if patient is tolerating. Recommendations: - Change to cefazolin 2g IV q6h for MSSA spinal infection to complete a 6-week course (01/19/25 03/02/25). If discharging home, can change to cefazolin 8g IV daily continuous infusion - Please note that higher dosing abx are recommended given the patients weight/BMI - After completion of 6 weeks of IV abx, would then transition to PO abx for long-term PO suppression for at least 3-6 months, if not longer/indefinitely (e.g., cefadroxil 1000 mg PO BID or doxycycline 200 mg PO BID, given the patients weight BMI) - Start rifampin 300 mg PO BID for adjunctive therapy given placement of hardware, likely continue for at least 3-6 months if tolerating, in addition to the abx above - Please note medication interaction b/w rifampin and pantoprazole, discussed with pharmacy: rifampin may affect pantoprazole metabolism and make it less effective, but no need to change rifampin dosing - Recommend referral to local outpatient ID for follow-up if able - Weekly monitoring while on IV abx: CBC w/ diff, CMP, ESR, CRP. Recommend lab results are faxed to ortho and ID clinic (if applicable) - F/u 01/19 OR Cx until finalized - F/u 01/19 BCx until finalized to ensure remains negative - Ensure close follow-up with ortho spine, primary care Plan discussed with primary team. Thank you for letting ID participate in the care of this patient. ID will sign off at this time. If questions, please contact the [facility] call center at [phone]. Penny Deng MD, S Infectious Diseases [facility] direct line: [phone] Consultation Information Consultation was provided via telemedicine using two-way real-time interactive telecommunication between the patient and the telemedicine provider. For the duration of the visit, the provider was performing the assessment from a different facility than the patient. This includesuse of bluetooth stethoscope forauscultationperformed by the telepresenter that the telemedicine provider can hear if described in the physical exam. [employer] Superintendent contact information: Please call [facility] Call Center [phone]. (Phone Number For Physician Use Only) After establishing a telemedicine visit, patient was: Patient was verified with two unique identifiers, Patient/authorized rep acknowledged consent and understanding and Gave permission to continue telehealth session Time Spent with Patient: Initial => 75 min History of Present Illness Attending Physician: Erick Estevez MD History of Present Illness Maty Perkins is a 60-year-old woman with history of HTN, PVD, moderate TR, CHRISTIAN, pulmonary HTN, Ghanshyam syndrome, endometriosis, history of bilateral knee replacements, history of cervical spine fusion with hardware 02/2022, history of lumbar radiculopathy s/p prior lumbar hardware and most recently s/p removal of L4-L5 hardware, decompression, and fusion of L3-S1 on 12/28/24, who presents to [facility] on 01/18/25 with back pain, back wound drainage, fevers, and chills, found to have large paraspinal abscess with extension into the epidural space, now s/p I&D on 01/19/25 with Cx + MSSA. ID is consulted for MSSA lumbar spinal infection involving hardware. The patient was recently admitted to [facility] ortho spine service 12/2812/31/24 history of lumbar radiculopathy s/p prior lumbar hardware and most recently s/p removal of L4-L5 hardware, decompression, and fusion of L3-S1 on 12/28/24. Over the last few days, she noted low back pain and transient headaches. No neck pain. Two days prior to admission, she noted that her wound had clear drainage, and she developed low grade fevers to 100.2F, chills, sweats, and nausea. In the ED, T38.2, WBC 13.69 Hgb 10.4 plt 377 Cr 0.56 LFTs wnl. 01/19 wound Cx from the back grew MSSA. MRI of the lumbar spine was obtained demonstrating significant 11.4 x 10.8 x 15.9 cm fluid collection just superficial to the fascia with a small pocket in the distal epidural space c/f abscess. She was started on daptomycin and cefepime (which was changed to pip-tazo). She was seen by ortho spine and recommended for I&D, which was performed on 01/19/25 along with wound vac placement. Intraoperative findings included evacuation of 400 ccs of goyo purulence which was suprafascial; the fascial layer was then opened and a small collection of non-purulent fluid was noted. Discussed with ortho spine team on 01/21 who confirmed clinical suspicion for hardware-associated infection and agree with treatment with IV abx followed by PO suppression. 01/19 OR Cx growing MSSA. She has multiple areas of hardware, in addition to her new lumbar spinal hardware. She has a history of bilateral knee replacements, including 3 replacement surgeries in her R knee and lots of metal in her right leg, as well as cervical spinal infection and plates in her L hand 4th/5th metacarpals. Allergies Allergy/AdvReac Type Severity Reaction Status Date / Time lisinopril Allergy Severe Face, Verified 12/28/24 07:56 Lips, Tongue Edema vancomycin Allergy Severe Red Man Verified 12/28/24 07:56 Syndrome celecoxib Allergy Intermediate "skin Verified 12/28/24 07:56 turned pinkish" morphine Allergy Intermediate Itchiness Verified 12/28/24 07:56 silver Allergy Intermediate Itchiness, Verified 12/28/24 07:56 Redness oxycodone AdvReac Intermediate Headache Verified 01/19/25 01:43 Penicillins AdvReac Intermediate Fatigue/Trouble Verified 12/28/24 07:56 Walking Home Medications Medication Instructions Recorded Confirmed Type escitalopram oxalate 20 mg tablet 20 mg PO QAM 05/24/19 01/19/25 History (Lexapro) hydrochlorothiazide 25 mg tablet 25 mg PO QAM 05/24/19 01/19/25 History loratadine 10 mg tablet (Claritin) 10 mg PO QAM 05/24/19 01/19/25 History lansoprazole 30 mg capsule,delayed 30 mg PO QAM 02/07/22 01/19/25 History release (Prevacid) trazodone 50 mg tablet 50 mg PO HS 07/19/23 01/19/25 History calcium 250 mg tablet 250 mg PO QAM 12/04/24 01/19/25 History famotidine 40 mg tablet 40 mg PO HS 12/04/24 01/19/25 History ibuprofen 200 mg tablet 1,600 - 2,400 mg PO Q6H PRN Pain 12/04/24 01/19/25 History metformin 500 mg tablet,extended 500 mg PO QPM 12/04/24 01/19/25 History release 24 hr tirzepatide (weight loss) 7.5 8.5 mg subcut WK 12/04/24 01/19/25 History mg/0.5 mL subcutaneous solution vitamin D3 250 mcg (10,000 1 cap PO QAM 12/04/24 01/19/25 History unit)-vitamin K2 45 mcg capsule Patient History Medical History Nocturnal hypoxemia 2L O2 HS with CPAP [facility] Constipation R/t tirzepatide per patient Prediabetes Oral/Weekly Inj History of anemia No blood transfusion/iron infusion hx Hx of migraines Frequent headaches Chronic cough Insomnia Hypertension GERD (gastroesophageal reflux disease) 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 Occasional headaches/facial numbness, at baseline History of COVID-19 06/2021: congestion, fatigue, GI upset 05/2023: congestion, cough, nausea, diarrhea > resolved Vertigo Intermittent episodes Degenerative disc disease Hiatal hernia Depression Sleep apnea 2L O2 HS with CPAP [facility] Surgical History (Updated 01/19/25 @ 02:33 by Sloan Kwong MD) History of wisdom tooth extraction History of lumbar surgery x2 Hx of fusion of cervical spine (02/2022) History of surgery on left wrist hardware present History of esophagogastroduodenoscopy (EGD) History of cataract surgery Left History of cardiac cath 2016 ([facility])- "normal coronary arteries" History of laparoscopy several History of hysterectomy History of arthroplasty of knee Right x3, left x1 History of tonsillectomy History of tooth extraction History of dilatation and curettage History of colonoscopy Family History Father Colorectal cancer Mother Diabetes Hypertension Brother Cancer of kidney Social History Smoking Status: Never smoker Second Hand Exposure: No; Do You Dip or Chew Tobacco: No; Hx Alcohol Use: No Hx Substance Use: No Preferred Language: Irish Communication Ability: Effective Disposal Operator Required: No Beliefs That Will Affect Care: None marital status: / Current Living Situation: Alone Feels Safe at Home: Yes Assistive Devices: Walker Physical Exam Physical Exam: Exam obtained with assistance of an in-person telepresenter General: Well-appearing, no acute distress, obese HEENT: Conjunctivae non-injected, sclerae anicteric, MMM, OP clear. Resp: Respirations nonlabored. Abd: Soft, nontender, nondistended. Back: Wound vac in place, with bloody drainage Ext: No joint warmth or effusions noted. Skin: No rashes or lesions. Neuro: Alert & interactive. Grossly non-focal. Psych: Pleasant, appropriate. Results & Data Vital Signs (Past 12 Hours) Vital Signs Temp Pulse Pulse Pulse Resp BP Pulse Ox 01/21/25 07:07 36.6 C 75 16 119/75 95 01/21/25 03:36 36.6 C 74 20 116/76 92 01/21/25 01:21 82 O2 Del Method 01/21/25 07:07 Room Air 01/21/25 03:36 Room Air 01/21/25 01:21 Diagnostic Findings Diagnostics: 01/19 Op note Patient was met with identified informed consent obtained. Patient was then taken to the operative suite underwent intubation placed in a prone position on the Ponce table atop the [place] frame. All bony prominences well-padded I suspected to ensure no external precipice upon them. This point the lumbar spine was prepped and draped normal sterile fashion. Sharp dissection was performed through the previous incision site to the suprafascial layer. 100s of cc of purulent fluid was identified and evacuated. The infection had eroded into the subcutaneous fat. The area was debrided. I did open the fascial layer and evacuated a small collection of fluid that was not purulent in nature. Several liters of antibiotic saline were then irrigated throughout the wound. The area was debrided to healthy viable bleeding tissue. The fascia was then closed with subcutaneous Vicryl and a wound VAC was placed. Patient was then awakened and taken to PACU stable condition. Please note Nevaeh Akins was present out the entire procedure involved the patient positioning complex portion of the surgery and final skin closure. I attest to the content of the Intraoperative Record and any orders documented therein. Any exceptions are noted below. 01/19 MRI L-spine Terminal lumbar segment vertebra is labeled as L5. Grade I anterolisthesis of L4 over L5 vertebra is noted. Mild exaggeration of the lumbar lordosis is noted. Transpedicular fixation devices are noted involving L3, L4, L5, S1 vertebral levels producing susceptibility artifacts in these areas. Resultant suboptimal evaluation of the vertebrae, spinal canal and adjacent soft tissue is noted. Degenerative changes are noted in the visualized spine as described. Suspicious fusion of L4 and L5 vertebra is noted. Extensive posterior paraspinal soft tissue edema, fat stranding and fluid collection is noted. Large collection is noted within the subcutaneous plane of the lumbar regionas described above. Possibility of infected collection/abscess. Mild posterior disc bulges are noted at L1-L2, L2-L3 levels indenting thecal sac, not causing any significant neural compression. Suboptimal evaluation at L3-L4, L4-L5, L5-S1 levels due to susceptibly artifacts. Micro Data: 01/19 lower back wound Cx (OR Cx #2 lumbar epidural space): MSSA 01/19 back wound Cx (OR Cx #1 superfascial lumbar): MSSA 01/19 back wound Cx (surface wound Cx): MSSA (S- dapto/vanc/linezolid/tetra/Bactrim; I-clinda) 01/19 BCx x2: NGTD Antibiotic Summary: cefazolin (01/21 present) prior daptomycin (01/18 01/20) pip-tazo (01/18 01/20) cefepime (01/18)
--- NOTE | 2025-01-21 14:24 | Hospitalist Progress Note ---
Date of Service January 21, 2025 Assessment & Plan (1) Sepsis: Plan: Sepsis Lumbar spinal abscess--POA --S/P irrigation and debridement of lumbar spine, wound VAC placement by Dr. Lyons on 01/19/2025 --Lumbar MRI:Terminal lumbar segment vertebra is labeled as L5. Grade I anterolisthesis of L4 over L5 vertebra is noted. Mild exaggeration of the lumbar lordosis is noted. Transpedicular fixation devices are noted involving L3, L4, L5, S1 vertebral levels producing susceptibility artifacts in these areas. Resultant suboptimal evaluation of the vertebrae, spinal canal and adjacent soft tissue is noted. Degenerative changes are noted in the visualized spine as described. Suspicious fusion of L4 and L5 vertebra is noted. Extensive posterior paraspinal soft tissue edema, fat stranding and fluid collection is noted. Large collection is noted within the subcutaneous plane of the lumbar regionas described above. Possibility of infected collection/abscess. Mild posterior disc bulges are noted at L1-L2, L2-L3 levels indenting thecal sac, not causing any significant neural compression. Suboptimal evaluation at L3-L4, L4-L5, L5-S1 levels due to susceptibly artifacts. --She has multiple areas of hardware, in addition to her new lumbar spinal hard gamez. She has a history of bilateral knee replacements, including 3 replacement surgeries in her R knee and lots of metal in her right leg, as well as cervical spinal infection and plates in her L hand 4th/5th metacarpals. --Has been on I/V Zosyn, daptomycin for now - wound culture is growing Staph aureus-MSSA --Blood cultures have been negative --Wound care, activity as per orthopedic spine --Appreciate orthopedic spine help --Clinically much better and will continue with wound VAC and also PT OT evaluation --Has had ID evaluation and recommendations pending given hardware associated infection Hyponatremia Hold HCTZ Sodium levels improved with IV fluids Sodium level has been normalized Sodium level has been normalized and it is running at 140 today and the creatinine is normal Hypertension Resume HCTZ as able Monitor blood pressure PVD, carotid artery disease Moderate TR Mood disorder Continue home medications CHRISTIAN on CPAP Pulmonary hypertension Prediabetes: HbA1c 5.7 Morbid obesity--on metformin, tirzepatide DVT Px: SCDs re:procedure CODE STATUS Full code Admission and Anticipated Discharge Date Admission Date: January 19, 2025 Subjective 01/20/2025 The patient was seen and examined in medical telemetry unit She has been feeling a lot better with minimal pain at the back and no radicular symptoms No fever and/or chills and denies any chest pain or palpitation No abdominal pain, nausea and or vomiting 01/22/2020 The patient was seen and examined in medical floor She has minimal back pain with no fever and/or chills and has been feeling a lot better She has had ID evaluation and awaiting recommendation Denies any other significant symptoms Review of Systems Review of Systems: All systems reviewed and unremarkable except as noted below Physical Exam Physical Exam: Sitting on a chair without any acute distress Constitutional: well developed, well nourished, + ill appearing and + obese Eyes: PERRL, conjunctivae normal, anicteric sclerae ENMT: external ear and nose normal, oropharynx normal Neck: trachea midline, no thyromegaly Respiratory: no respiratory distress Auscultation: lungs clear to auscultation bilaterally Cardiovascular: Rate/Rhythm: regular rate and regular rhythm; not tachycardic Heart Sounds: normal S1 and normal S2; no murmur Extremities: + edema (Trace edema bilaterally) Gastrointestinal (Abdomen): Inspection/Auscultation: normal bowel sounds; abdomen not distended Percussion/Palpation: abdomen soft; abdomen nontender Neurologic: normal touch/pain/proprioception and moves all extremities; no focal motor deficits Psychiatric: A+Ox3, euthymic affect Lymphatic: no cervical or axillary lymphadenopathy Results & Data Results & Data Vital Signs (Past 12 Hours) Vital Signs Temp Pulse Pulse Resp BP Pulse Ox O2 Del Method 01/21/25 07:07 36.6 C 75 16 119/75 95 Room Air 01/21/25 03:36 36.6 C 74 20 116/76 92 Room Air Laboratory Results Short CBC 01/21/25 Range/Units 07:03 WBC 9.28 (4.8-10.8) K/ul Hgb 8.5 L (12.0-16.0) g/dl Hct 27.2 L (37.0-47.0) % Plt Count 450 H (130-400) K/uL Medications Administered Current Inpatient Medications Acetaminophen (Acetaminophen 325 Mg Tab) 650 mg PO QID PRN PRN Reason: pain/fever Stop: 02/18/25 01:37 Hydrocodone Bitart/Acetaminophen (Hydrocodone/Acetamophen 5/325mg Tab) 1 tab PO QID PRN PRN Reason: Pain Stop: 02/02/25 01:37 Last Admin: 01/21/25 13:25 Dose: 1 tab Escitalopram Oxalate (Escitalopram Oxalate 20 Mg Tab) 20 mg PO QAM [facility] Stop: 02/18/25 08:59 Last Admin: 01/21/25 08:19 Dose: 20 mg Famotidine (Famotidine 40 Mg Tablet) 40 mg PO HS СВЕТЛАНА Stop: 02/18/25 20:59 Last Admin: 01/20/25 19:55 Dose: 40 mg Hydromorphone HCl (Hydromorphone Inj 0.5 Mg/0.5 Ml Syr) 0.5 mg IV Q6H PRN PRN Reason: Pain Stop: 02/02/25 01:38 Promethazine HCl (Phenergan) 12.5 mg in 50.5 mls @ 202 mls/hr IV Q6H PRN PRN Reason: Nausea And Vomiting Stop: 02/18/25 01:37 Cefazolin Sodium (Ancef 2000mg) 2,000 mg in 15 mls @ 3.75 mls/min IV Q6H СВЕТЛАНА Stop: 03/04/25 11:14 Loratadine (Loratadine 10 Mg Tab) 10 mg PO QAM [facility] Stop: 02/18/25 08:59 Last Admin: 01/21/25 08:19 Dose: 10 mg Lorazepam (Lorazepam 0.5 Mg Tab) 0.5 mg PO TID PRN PRN Reason: Anxiety Stop: 02/18/25 01:37 Pantoprazole Sodium (Pantoprazole 40 Mg Tab) 40 mg PO QAM СВЕТЛАНА Stop: 02/18/25 08:59 Last Admin: 01/21/25 08:19 Dose: 40 mg Rifampin (Rifampin 300 Mg Capsule) 300 mg PO BID СВЕТЛАНА Stop: 02/20/25 20:59 Trazodone HCl (Trazodone Hcl 50 Mg Tab) 50 mg PO HS [facility] Stop: 02/18/25 20:59 Last Admin: 01/20/25 19:55 Dose: 50 mg (1) Sepsis Sepsis acute organ dysfunction status: without acute organ dysfunction Sepsis type: sepsis due to unspecified organism Qualified Code(s): A41.9 - Sepsis, unspecified organism
--- NOTE | 2025-01-22 10:31 | Orthopedic Progress Note ---
Date of Service January 22, 2025 Assessment & Plan (1) MSSA (methicillin susceptible Staphylococcus aureus) infection: Plan: At this time we will await placement of a PICC line. Infectious diseases outlined the antibiotic regimen. Will discharge home when PICC line placed and home nursing arranged. Admission and Anticipated Discharge Date Admission Date: January 19, 2025 Subjective Patient's back pain is controlled. No leg pain. Tolerating therapy. Physical Exam Physical Exam: Patient is currently in bed. Neurologic intact. Results & Data Vital Signs (Past 12 Hours) Vital Signs Temp Pulse Resp BP Pulse Ox O2 Del Method 01/22/25 07:48 36.5 C 81 17 112/78 96 Room Air Queries Orthopedic Spine Obesity: Yes
[2025-01-22] MEDS: HYDROmorphone INJ 0.5 MG/0.5 ML SYR IV PRN (10:32)
--- NOTE | 2025-01-22 15:21 | Hospitalist Progress Note ---
Date of Service January 22, 2025 Assessment & Plan (1) Sepsis: Plan: Sepsis Lumbar spinal abscess--POA --S/P irrigation and debridement of lumbar spine, wound VAC placement by Dr. Lyons on 01/19/2025 --Lumbar MRI:Terminal lumbar segment vertebra is labeled as L5. Grade I anterolisthesis of L4 over L5 vertebra is noted. Mild exaggeration of the lumbar lordosis is noted. Transpedicular fixation devices are noted involving L3, L4, L5, S1 vertebral levels producing susceptibility artifacts in these areas. Resultant suboptimal evaluation of the vertebrae, spinal canal and adjacent soft tissue is noted. Degenerative changes are noted in the visualized spine as described. Suspicious fusion of L4 and L5 vertebra is noted. Extensive posterior paraspinal soft tissue edema, fat stranding and fluid collection is noted. Large collection is noted within the subcutaneous plane of the lumbar regionas described above. Possibility of infected collection/abscess. Mild posterior disc bulges are noted at L1-L2, L2-L3 levels indenting thecal sac, not causing any significant neural compression. Suboptimal evaluation at L3-L4, L4-L5, L5-S1 levels due to susceptibly artifacts. --She has multiple areas of hardware, in addition to her new lumbar spinal hard gamez. She has a history of bilateral knee replacements, including 3 replacement surgeries in her R knee and lots of metal in her right leg, as well as cervical spinal infection and plates in her L hand 4th/5th metacarpals. --Has been on I/V Zosyn, daptomycin for now - wound culture is growing Staph aureus-MSSA --Blood cultures have been negative --Wound care, activity as per orthopedic spine --Appreciate orthopedic spine help --Clinically much better and will continue with wound VAC and also PT OT evaluation --Has had ID evaluation and recommendations pending given hardware associated infection Remains medically stable with minimal back pain and wound VAC is in place Antibiotics has been as per ID recommendation and PICC line has been ordered government sales manager is working on placement/home health to continue antibiotic as advised Hyponatremia Hold HCTZ Sodium levels improved with IV fluids Sodium level has been normalized Sodium level has been normalized and it is running at 140 today and the creatinine is normal Hypertension Resume HCTZ as able Monitor blood pressure PVD, carotid artery disease Moderate TR Mood disorder Continue home medications CHRISTIAN on CPAP Pulmonary hypertension Prediabetes: HbA1c 5.7 Morbid obesity--on metformin, tirzepatide DVT Px: SCDs re:procedure CODE STATUS Full code Admission and Anticipated Discharge Date Admission Date: January 19, 2025 Subjective 01/20/2025 The patient was seen and examined in medical telemetry unit She has been feeling a lot better with minimal pain at the back and no radicular symptoms No fever and/or chills and denies any chest pain or palpitation No abdominal pain, nausea and or vomiting 01/21/2025 The patient was seen and examined in medical floor She has minimal back pain with no fever and/or chills and has been feeling a lot better She has had ID evaluation and awaiting recommendation Denies any other significant symptoms 01/22/2025 The patient was seen and examined in the medical floor in presence of the family members She has been stable with minimal pain at the back No fever no chills and does not have any nausea or vomiting She was seen by the ID specialist and recommendations in the chart Review of Systems Review of Systems: All systems reviewed and unremarkable except as noted below Physical Exam Physical Exam: Sitting on a chair without any acute distress Constitutional: well developed, well nourished, + ill appearing and + obese Eyes: PERRL, conjunctivae normal, anicteric sclerae ENMT: external ear and nose normal, oropharynx normal Neck: trachea midline, no thyromegaly Respiratory: no respiratory distress Auscultation: lungs clear to auscultation bilaterally Cardiovascular: Rate/Rhythm: regular rate and regular rhythm; not tachycardic Heart Sounds: normal S1 and normal S2; no murmur Extremities: + edema (Trace edema bilaterally) Gastrointestinal (Abdomen): Inspection/Auscultation: normal bowel sounds; abdomen not distended Percussion/Palpation: abdomen soft; abdomen nontender Neurologic: normal touch/pain/proprioception and moves all extremities; no focal motor deficits Psychiatric: A+Ox3, euthymic affect Lymphatic: no cervical or axillary lymphadenopathy Results & Data Results & Data Vital Signs (Past 12 Hours) Vital Signs Temp Pulse Resp BP Pulse Ox O2 Del Method 01/22/25 13:10 36.7 C 83 18 126/74 97 Room Air 01/22/25 07:48 36.5 C 81 17 112/78 96 Room Air Medications Administered Current Inpatient Medications Acetaminophen (Acetaminophen 325 Mg Tab) 650 mg PO QID PRN PRN Reason: pain/fever Stop: 02/18/25 01:37 Hydrocodone Bitart/Acetaminophen (Hydrocodone/Acetamophen 5/325mg Tab) 1 tab PO QID PRN PRN Reason: Pain Stop: 02/02/25 01:37 Last Admin: 01/22/25 09:45 Dose: 1 tab Escitalopram Oxalate (Escitalopram Oxalate 20 Mg Tab) 20 mg PO QAM [facility] Stop: 02/18/25 08:59 Last Admin: 01/22/25 08:18 Dose: 20 mg Famotidine (Famotidine 40 Mg Tablet) 40 mg PO HS СВЕТЛАНА Stop: 02/18/25 20:59 Last Admin: 01/21/25 20:59 Dose: 40 mg Hydromorphone HCl (Hydromorphone Inj 0.5 Mg/0.5 Ml Syr) 0.5 mg IV Q6H PRN PRN Reason: Pain Stop: 02/02/25 01:38 Last Admin: 01/22/25 10:32 Dose: 0.5 mg Promethazine HCl (Phenergan) 12.5 mg in 50.5 mls @ 202 mls/hr IV Q6H PRN PRN Reason: Nausea And Vomiting Stop: 02/18/25 01:37 Cefazolin Sodium (Ancef 2000mg) 2,000 mg in 15 mls @ 3.75 mls/min IV Q6H СВЕТЛАНА Stop: 03/04/25 11:14 Last Admin: 01/22/25 09:50 Dose: 3.75 mls/min Loratadine (Loratadine 10 Mg Tab) 10 mg PO QAM [facility] Stop: 02/18/25 08:59 Last Admin: 01/22/25 08:18 Dose: 10 mg Lorazepam (Lorazepam 0.5 Mg Tab) 0.5 mg PO TID PRN PRN Reason: Anxiety Stop: 02/18/25 01:37 Pantoprazole Sodium (Pantoprazole 40 Mg Tab) 40 mg PO QAM [facility] Stop: 02/18/25 08:59 Last Admin: 01/22/25 08:18 Dose: 40 mg Rifampin (Rifampin 300 Mg Capsule) 300 mg PO BID СВЕТЛАНА Stop: 02/20/25 20:59 Last Admin: 01/22/25 08:18 Dose: 300 mg Trazodone HCl (Trazodone Hcl 50 Mg Tab) 50 mg PO HS [facility] Stop: 02/18/25 20:59 Last Admin: 01/21/25 20:59 Dose: 50 mg (1) Sepsis Sepsis acute organ dysfunction status: without acute organ dysfunction Sepsis type: sepsis due to unspecified organism Qualified Code(s): A41.9 - Sepsis, unspecified organism
[2025-01-23 07:19] LABS: Hematocrit (blood only) 27.8 % (37.0-47.0); Hemoglobin 8.7 g/dl (12.0-16.0); Mean Corpuscular Hemoglobin 26.8 pg (25.0-34.0); Mean Corpuscular Volume 85.5 fL (80.0-100.0); Platelet Count 525 K/uL (130-400); RDW Standard Deviation 45.5 fL (36.4-46.3); Red Blood Count 3.25 M/uL (4.20-5.40); White Blood Count 7.95 K/ul (4.8-10.8)
[2025-01-23 07:48] LABS: Hypochromasia Present; Immature Granulocytes # (auto) 0.32 K/uL (0.01-0.20); Immature Granulocytes % (auto) 4.0 %; Polychromasia 3+
[2025-01-23 07:58] LABS: Anion Gap 5.0 (3-11); Blood Urea Nitrogen 9.0 mg/dl (6-23); Calcium 8.6 mg/dl (8.6-10.3); Carbon Dioxide 33.0 mmol/L (21-32); Chloride 103.0 mmol/L (98-107); Creatinine Clr Calc Pharmacy 139.5 ml/min; Glucose 97.0 mg/dl (70-99(Fasting)); Potassium 4.2 mmol/L (3.5-5.1); Sodium 141.0 mmol/L (136-145)
[2025-01-23] MEDS: PROMETHAZINE 12.5 MG/50.5 ML BAG IV PRN (08:07)
--- NOTE | 2025-01-23 08:09 | Orthopedic Progress Note ---
Date of Service January 23, 2025 Assessment & Plan (1) MSSA (methicillin susceptible Staphylococcus aureus) infection: Plan: At this time encourage the patient to walk several times a day to stay mobile. To continue to improve her strength. She will hopefully be ready for discharge in the next few days. The PICC line was placed last evening. Admission and Anticipated Discharge Date Admission Date: January 19, 2025 Subjective Back pain controlled leg pain improved. Physical Exam Physical Exam: Patient is currently in bed. He is constricted testing. Results & Data Vital Signs (Past 12 Hours) Vital Signs Temp Pulse Resp BP Pulse Ox O2 Del Method 01/23/25 07:34 36.4 C L 87 18 132/87 97 Room Air Queries Orthopedic Spine Obesity: Yes
--- NOTE | 2025-01-23 09:54 | Hospitalist Progress Note ---
Date of Service January 23, 2025 Assessment & Plan (1) Sepsis: Plan: Sepsis:Sepsis due to Methicillin susceptible Staphylococcus aureus Lumbar spinal abscess--POA --S/P irrigation and debridement of lumbar spine, wound VAC placement by Dr. Lyons on 01/19/2025 --Lumbar MRI:Terminal lumbar segment vertebra is labeled as L5. Grade I anterolisthesis of L4 over L5 vertebra is noted. Mild exaggeration of the lumbar lordosis is noted. Transpedicular fixation devices are noted involving L3, L4, L5, S1 vertebral levels producing susceptibility artifacts in these areas. Resultant suboptimal evaluation of the vertebrae, spinal canal and adjacent soft tissue is noted. Degenerative changes are noted in the visualized spine as described. Suspicious fusion of L4 and L5 vertebra is noted. Extensive posterior paraspinal soft tissu e edema, fat stranding and fluid collection is noted. Large collection is noted within the subcutaneous plane of the lumbar regionas described above. Possibility of infected collection/abscess. Mild posterior disc bulges are noted at L1-L2, L2-L3 levels indenting thecal sac, not causing any significant neural compression. Suboptimal evaluation at L3-L4, L4-L5, L5-S1 levels due to susceptibly artifacts. --She has multiple areas of hardware, in addition to her new lumbar spinal hardware. She has a history of bilateral knee replacements, including 3 replacement surgeries in her R knee and lots of metal in her right leg, as well as cervical spinal infection and plates in her L hand 4th/5th metacarpals. --Has been on I/V Zosyn, daptomycin for now - wound culture is growing Staph aureus-MSSA --Blood cultures have been negative --Wound care, activity as per orthopedic spine --Appreciate orthopedic spine help --Clinically much better and will continue with wound VAC and also PT OT evaluation --Has had ID evaluation and recommendations pending given hardware associated infection Remains medically stable with minimal back pain and wound VAC is in place Antibiotics has been as per ID recommendation and PICC line has been ordered process safety manager is working on placement/home health to continue antibiotic as advised Remains medically stable without any fever and no chills and the pain is controlled PICC line is placed and awaiting discharge disposition Hyponatremia Hold HCTZ Sodium levels improved with IV fluids Sodium level has been normalized Sodium level has been normalized and it is running at 140 today and the creatinine is normal Hypertension Resume HCTZ as able Monitor blood pressure PVD, carotid artery disease Moderate TR Mood disorder Continue home medications CHRISTIAN on CPAP Pulmonary hypertension Prediabetes: HbA1c 5.7 Morbid obesity--on metformin, tirzepatide DVT Px: SCDs re:procedure CODE STATUS Full code Admission and Anticipated Discharge Date Admission Date: January 19, 2025 Subjective 01/20/2025 The patient was seen and examined in medical telemetry unit She has been feeling a lot better with minimal pain at the back and no radicular symptoms No fever and/or chills and denies any chest pain or palpitation No abdominal pain, nausea and or vomiting 01/21/2025 The patient was seen and examined in medical floor She has minimal back pain with no fever and/or chills and has been feeling a lot better She has had ID evaluation and awaiting recommendation Denies any other significant symptoms 01/22/2025 The patient was seen and examined in the medical floor in presence of the family members She has been stable with minimal pain at the back No fever no chills and does not have any nausea or vomiting She was seen by the ID specialist and recommendations in the chart 01/23/2025 The patient was seen and examined in the medical floor She has been complaining of nausea otherwise back pain is controlled and does not have any fever and no chills She has a PICC line yesterday and likely be discharged on Saturday Review of Systems Review of Systems: All systems reviewed and unremarkable except as noted below Physical Exam Physical Exam: Sitting on a chair without any acute distress Constitutional: well developed, well nourished, + ill appearing and + obese Eyes: PERRL, conjunctivae normal, anicteric sclerae ENMT: external ear and nose normal, oropharynx normal Neck: trachea midline, no thyromegaly Respiratory: no respiratory distress Auscultation: lungs clear to auscultation bilaterally Cardiovascular: Rate/Rhythm: regular rate and regular rhythm; not tachycardic Heart Sounds: normal S1 and normal S2; no murmur Extremities: + edema (Trace edema bilaterally) Gastrointestinal (Abdomen): Inspection/Auscultation: normal bowel sounds; abdomen not distended Percussion/Palpation: abdomen soft; abdomen nontender Neurologic: normal touch/pain/proprioception and moves all extremities; no focal motor deficits Psychiatric: A+Ox3, euthymic affect Lymphatic: no cervical or axillary lymphadenopathy Results & Data Results & Data Vital Signs (Past 12 Hours) Vital Signs Temp Pulse Resp BP Pulse Ox O2 Del Method 01/23/25 07:34 36.4 C L 87 18 132/87 97 Room Air Laboratory Results Short CBC 01/23/25 Range/Units 06:49 WBC 7.95 (4.8-10.8) K/ul Hgb 8.7 L (12.0-16.0) g/dl Hct 27.8 L (37.0-47.0) % Plt Count 525 H (130-400) K/uL BMP 01/23/25 06:49 Sodium 141 Potassium 4.2 Chloride 103 Carbon Dioxide 33 H BUN 9 Creatinine 0.58 L Glucose 97 Calcium 8.6 Medications Administered Current Inpatient Medications Acetaminophen (Acetaminophen 325 Mg Tab) 650 mg PO QID PRN PRN Reason: pain/fever Stop: 02/18/25 01:37 Hydrocodone Bitart/Acetaminophen (Hydrocodone/Acetamophen 5/325mg Tab) 1 tab PO QID PRN PRN Reason: Pain Stop: 02/02/25 01:37 Last Admin: 01/22/25 19:18 Dose: 1 tab Calcium Carbonate (Calcium Carbonate 500 Mg Chewable Tab) 500 mg PO Q6H PRN PRN Reason: Indigestion Stop: 02/22/25 11:14 Last Admin: 01/23/25 11:51 Dose: 500 mg Escitalopram Oxalate (Escitalopram Oxalate 20 Mg Tab) 20 mg PO QAM СВЕТЛАНА Stop: 02/18/25 08:59 Last Admin: 01/23/25 08:11 Dose: 20 mg Famotidine (Famotidine 40 Mg Tablet) 40 mg PO HS СВЕТЛАНА Stop: 02/18/25 20:59 Last Admin: 01/22/25 20:43 Dose: 40 mg Heparin Sodium (Beef Lung) (Heparin 10 Unit/Ml 5 Ml Flush) 5 ml FLUSH PRN PRN PRN Reason: Flush Stop: 02/22/25 09:32 Hydromorphone HCl (Hydromorphone Inj 0.5 Mg/0.5 Ml Syr) 0.5 mg IV Q6H PRN PRN Reason: Pain Stop: 02/02/25 01:38 Last Admin: 01/22/25 10:32 Dose: 0.5 mg Promethazine HCl (Phenergan) 12.5 mg in 50.5 mls @ 202 mls/hr IV Q6H PRN PRN Reason: Nausea And Vomiting Stop: 02/18/25 01:37 Last Infusion: 01/23/25 08:25 Dose: Infused Cefazolin Sodium (Ancef 2000mg) 2,000 mg in 15 mls @ 3.75 mls/min IV Q6H СВЕТЛАНА Stop: 03/04/25 11:14 Last Admin: 01/23/25 11:38 Dose: 3.75 mls/min Loratadine (Loratadine 10 Mg Tab) 10 mg PO QAM СВЕТЛАНА Stop: 02/18/25 08:59 Last Admin: 01/23/25 08:11 Dose: 10 mg Lorazepam (Lorazepam 0.5 Mg Tab) 0.5 mg PO TID PRN PRN Reason: Anxiety Stop: 02/18/25 01:37 Pantoprazole Sodium (Pantoprazole 40 Mg Tab) 40 mg PO QAM [facility] Stop: 02/18/25 08:59 Last Admin: 01/23/25 08:11 Dose: 40 mg Rifampin (Rifampin 300 Mg Capsule) 300 mg PO BID СВЕТЛАНА Stop: 02/20/25 20:59 Last Admin: 01/23/25 08:11 Dose: 300 mg Trazodone HCl (Trazodone Hcl 50 Mg Tab) 50 mg PO HS СВЕТЛАНА Stop: 02/18/25 20:59 Last Admin: 01/22/25 20:52 Dose: 50 mg (1) Sepsis Sepsis acute organ dysfunction status: without acute organ dysfunction Sepsis type: sepsis due to unspecified organism Qualified Code(s): A41.9 - Sepsis, unspecified organism
[2025-01-23] MEDS: CALCIUM CARBONATE 500 MG CHEWABLE TAB PO PRN (11:51)
[2025-01-23] MEDS: ACETAMINOPHEN 325 MG TAB PO PRN (22:17)
--- NOTE | 2025-01-24 09:40 | Orthopedic Progress Note ---
Date of Service January 24, 2025 Assessment & Plan (1) MSSA (methicillin susceptible Staphylococcus aureus) infection: Plan: At this time I encouraged her to ambulate throughout the day. Will await final case management preparation for discharge hopefully tomorrow. Admission and Anticipated Discharge Date Admission Date: January 19, 2025 Subjective Patient's back pain is controlled. She is ambulating daily. Physical Exam Physical Exam: Patient is currently in bed. Has good strength testing. Results & Data Vital Signs (Past 12 Hours) Vital Signs Temp Pulse Resp BP Pulse Ox O2 Del Method 01/24/25 08:00 38.0 C H 92 H 18 128/85 94 Room Air Queries Orthopedic Spine Obesity: Yes
--- NOTE | 2025-01-24 13:51 | Hospitalist Progress Note ---
Date of Service January 24, 2025 Assessment & Plan (1) Sepsis: Plan: Sepsis:Sepsis due to Methicillin susceptible Staphylococcus aureus Lumbar spinal abscess--POA --S/P irrigation and debridement of lumbar spine, wound VAC placement by Dr. Lyons on 01/19/2025 --Lumbar MRI:Terminal lumbar segment vertebra is labeled as L5. Grade I anterolisthesis of L4 over L5 vertebra is noted. Mild exaggeration of the lumbar lordosis is noted. Transpedicular fixation devices are noted involving L3, L4, L5, S1 vertebral levels producing susceptibility artifacts in these areas. Resultant suboptimal evaluation of the vertebrae, spinal canal and adjacent soft tissue is noted. Degenerative changes are noted in the visualized spine as described. Suspicious fusion of L4 and L5 vertebra is noted. Extensive posterior paraspinal soft tissu e edema, fat stranding and fluid collection is noted. Large collection is noted within the subcutaneous plane of the lumbar regionas described above. Possibility of infected collection/abscess. Mild posterior disc bulges are noted at L1-L2, L2-L3 levels indenting thecal sac, not causing any significant neural compression. Suboptimal evaluation at L3-L4, L4-L5, L5-S1 levels due to susceptibly artifacts. --She has multiple areas of hardware, in addition to her new lumbar spinal hardware. She has a history of bilateral knee replacements, including 3 replacement surgeries in her R knee and lots of metal in her right leg, as well as cervical spinal infection and plates in her L hand 4th/5th metacarpals. --Has been on I/V Zosyn, daptomycin for now - wound culture is growing Staph aureus-MSSA --Blood cultures have been negative --Wound care, activity as per orthopedic spine --Appreciate orthopedic spine help --Clinically much better and will continue with wound VAC and also PT OT evaluation --Has had ID evaluation and recommendations pending given hardware associated infection Remains medically stable with minimal back pain and wound VAC is in place Antibiotics has been as per ID recommendation and PICC line has been ordered molding manager is working on placement/home health to continue antibiotic as advised Remains medically stable without any fever and no chills and the pain is controlled PICC line is placed and awaiting discharge disposition Remains medically stable without any significant symptoms and awaiting keycase assembler evaluation for discharge Getting IV cefazolin through the PICC line Antibiotics will be continued as per recommendation from the infectious disease Hyponatremia Hold HCTZ Sodium levels improved with IV fluids Sodium level has been normalized Sodium level has been normalized and it is running at 140 today and the creatinine is normal Hypertension Resume HCTZ as able Monitor blood pressure PVD, carotid artery disease Moderate TR Mood disorder Continue home medications CHRISTIAN on CPAP Pulmonary hypertension Prediabetes: HbA1c 5.7 Morbid obesity--on metformin, tirzepatide DVT Px: SCDs re:procedure CODE STATUS Full code Admission and Anticipated Discharge Date Admission Date: January 19, 2025 Subjective 01/20/2025 The patient was seen and examined in medical telemetry unit She has been feeling a lot better with minimal pain at the back and no radicular symptoms No fever and/or chills and denies any chest pain or palpitation No abdominal pain, nausea and or vomiting 01/21/2025 The patient was seen and examined in medical floor She has minimal back pain with no fever and/or chills and has been feeling a lot better She has had ID evaluation and awaiting recommendation Denies any other significant symptoms 01/22/2025 The patient was seen and examined in the medical floor in presence of the family members She has been stable with minimal pain at the back No fever no chills and does not have any nausea or vomiting She was seen by the ID specialist and recommendations in the chart 01/23/2025 The patient was seen and examined in the medical floor She has been complaining of nausea otherwise back pain is controlled and does n ot have any fever and no chills She has a PICC line yesterday and likely be discharged on Saturday01/24/2025 The patient was seen and examined in medical floor She has been feeling much better and denies any significant symptoms Noted to have a temperature of 38 Back pain is controlled and has been getting IV cefazolin through the PICC line Review of Systems Review of Systems: All systems reviewed and unremarkable except as noted below Physical Exam Physical Exam: Sitting on a chair without any acute distress Constitutional: well developed, well nourished, + ill appearing and + obese Eyes: PERRL, conjunctivae normal, anicteric sclerae ENMT: external ear and nose normal, oropharynx normal Neck: trachea midline, no thyromegaly Respiratory: no respiratory distress Auscultation: lungs clear to auscultation bilaterally Cardiovascular: Rate/Rhythm: regular rate and regular rhythm; not tachycardic Heart Sounds: normal S1 and normal S2; no murmur Extremities: + edema (Trace edema bilaterally) Gastrointestinal (Abdomen): Inspection/Auscultation: normal bowel sounds; abdomen not distended Percussion/Palpation: abdomen soft; abdomen nontender Neurologic: normal touch/pain/proprioception and moves all extremities; no focal motor deficits Psychiatric: A+Ox3, euthymic affect Lymphatic: no cervical or axillary lymphadenopathy Results & Data Results & Data Vital Signs (Past 12 Hours) Vital Signs Temp Pulse Resp BP Pulse Ox O2 Del Method 01/24/25 08:00 38.0 C H 92 H 18 128/85 94 Room Air Medications Administered Current Inpatient Medications Acetaminophen (Acetaminophen 325 Mg Tab) 650 mg PO QID PRN PRN Reason: pain/fever Stop: 02/18/25 01:37 Last Admin: 01/23/25 22:17 Dose: 650 mg Hydrocodone Bitart/Acetaminophen (Hydrocodone/Acetamophen 5/325mg Tab) 1 tab PO QID PRN PRN Reason: Pain Stop: 02/02/25 01:37 Last Admin: 01/22/25 19:18 Dose: 1 tab Calcium Carbonate (Calcium Carbonate 500 Mg Chewable Tab) 500 mg PO Q6H PRN PRN Reason: Indigestion Stop: 02/22/25 11:14 Last Admin: 01/23/25 11:51 Dose: 500 mg Escitalopram Oxalate (Escitalopram Oxalate 20 Mg Tab) 20 mg PO QAM СВЕТЛАНА Stop: 02/18/25 08:59 Last Admin: 01/24/25 08:27 Dose: 20 mg Famotidine (Famotidine 40 Mg Tablet) 40 mg PO HS СВЕТЛАНА Stop: 02/18/25 20:59 Last Admin: 01/23/25 20:26 Dose: 40 mg Heparin Sodium (Beef Lung) (Heparin 10 Unit/Ml 5 Ml Flush) 5 ml FLUSH PRN PRN PRN Reason: Flush Stop: 02/22/25 09:32 Last Admin: 01/24/25 10:26 Dose: 5 ml Hydromorphone HCl (Hydromorphone Inj 0.5 Mg/0.5 Ml Syr) 0.5 mg IV Q6H PRN PRN Reason: Pain Stop: 02/02/25 01:38 Last Admin: 01/22/25 10:32 Dose: 0.5 mg Promethazine HCl (Phenergan) 12.5 mg in 50.5 mls @ 202 mls/hr IV Q6H PRN PRN Reason: Nausea And Vomiting Stop: 02/18/25 01:37 Last Infusion: 01/23/25 08:25 Dose: Infused Cefazolin Sodium (Ancef 2000mg) 2,000 mg in 15 mls @ 3.75 mls/min IV Q6H СВЕТЛАНА Stop: 03/04/25 11:14 Last Admin: 01/24/25 08:31 Dose: 3.75 mls/min Loratadine (Loratadine 10 Mg Tab) 10 mg PO QAM СВЕТЛАНА Stop: 02/18/25 08:59 Last Admin: 01/24/25 08:27 Dose: 10 mg Lorazepam (Lorazepam 0.5 Mg Tab) 0.5 mg PO TID PRN PRN Reason: Anxiety Stop: 02/18/25 01:37 Pantoprazole Sodium (Pantoprazole 40 Mg Tab) 40 mg PO QAM СВЕТЛАНА Stop: 02/18/25 08:59 Last Admin: 01/24/25 08:27 Dose: 40 mg Rifampin (Rifampin 300 Mg Capsule) 300 mg PO BID СВЕТЛАНА Stop: 02/20/25 20:59 Last Admin: 01/24/25 08:27 Dose: 300 mg Trazodone HCl (Trazodone Hcl 50 Mg Tab) 50 mg PO HS СВЕТЛАНА Stop: 02/18/25 20:59 Last Admin: 01/23/25 20:26 Dose: 50 mg (1) Sepsis Sepsis acute organ dysfunction status: without acute organ dysfunction Sepsis type: sepsis due to unspecified organism Qualified Code(s): A41.9 - Sepsis, unspecified organism
[2025-01-25 08:08] LABS: Hematocrit (blood only) 31.9 % (37.0-47.0); Hemoglobin 9.7 g/dl (12.0-16.0); Immature Granulocytes # (auto) 0.25 K/uL (0.01-0.20); Immature Granulocytes % (auto) 2.6 %; Mean Corpuscular Hemoglobin 26.6 pg (25.0-34.0); Mean Corpuscular Volume 87.6 fL (80.0-100.0); Platelet Count 578 K/uL (130-400); RDW Standard Deviation 47.7 fL (36.4-46.3); Red Blood Count 3.64 M/uL (4.20-5.40); White Blood Count 9.77 K/ul (4.8-10.8)
[2025-01-25 08:36] LABS: Alanine Aminotransferase 26.0 U/L (7-52); Albumin Globulin Ratio 1.0 (0.9-2); Albumin Level 3.4 gm/dl (3.4-5.0); Alkaline Phosphatase 108.0 U/L (34-104); Anion Gap 5.0 (3-11); Bilirubin,Total 0.3 mg/dl (0.2-1.0); Blood Urea Nitrogen 8.0 mg/dl (6-23); Calcium 9.1 mg/dl (8.6-10.3); Carbon Dioxide 31.0 mmol/L (21-32); Chloride 103.0 mmol/L (98-107); Creatinine Clr Calc Pharmacy 134.9 ml/min; Globulin 3.5 gm/dl (2.5-4.0); Glucose 104.0 mg/dl (70-99(Fasting)); Potassium 4.1 mmol/L (3.5-5.1); Sodium 139.0 mmol/L (136-145); Total Protein 6.9 gm/dl (6.0-8.3)
--- NOTE | 2025-01-25 12:07 | Discharge Summary ---
Date of Service January 25, 2025 Admission HPI Per Admitting Provider History obtained from patient and records. Medical history significant for hypertension, PVD, moderate TR, CHRISTIAN on CPAP, pulmonary hypertension, GERD, prediabetes, Ghanshyam syndrome as per records, endometriosis, mood disorder. Recent confinement under Orthopedics spine service 12/28- for lumbar radiculopathy status post decompression surgery. Hemoglobin 10.4 at time of discharge. Few days ago, patient noted some increase in low back pain without unusual weakness. Transient headache symptoms which patient attributes to oxycodone. No neck pain. 2 days ago, patient noted clear drainage from wound associated with fever, chills, nausea. Poor appetite. Patient consulted ER for worsening symptoms. Cefepime administered at the ER. Medical History as above Surgical History : Spine surgery, dental surgery, hysterectomy, knee surgery, tonsillectomy, D&C, cataract surgery, wrist surgery, septoplasty Family History : DM, heart disease, black lung, kidney cancer, colon cancer Personal/Social history : Non-smoker, rare EtOH intake, x-ray tech Principal Diagnosis Postop lumbar abscess Discharge Data Allergies Allergy/AdvReac Type Severity Reaction Status Date / Time lisinopril Allergy Severe Face, Verified 12/28/24 07:56 Lips, Tongue Edema vancomycin Allergy Severe Red Man Verified 12/28/24 07:56 Syndrome celecoxib Allergy Intermediate "skin Verified 12/28/24 07:56 turned pinkish" morphine Allergy Intermediate Itchiness Verified 12/28/24 07:56 silver Allergy Intermediate Itchiness, Verified 12/28/24 07:56 Redness oxycodone AdvReac Intermediate Headache Verified 01/19/25 01:43 Penicillins AdvReac Intermediate Fatigue/Trouble Verified 12/28/24 07:56 Walking Consultations 01/19/25 00:37 ED Decision to Admit Stat 01/19/25 01:39 Consult Orthopedic Spine Surgery Routine 01/21/25 08:39 Consult Infectious Diseases Routine Procedures Performed Operation Date: 01/19/25 09:35 Actual Procedures p Incision and Drainage Lumbar Spine(Not Applicable) - Jaguar Lyons DO Ordered Studies 01/19/25 01:36 MR lumbar spine wo/w con Stat Hospital Course (1) MSSA (methicillin susceptible Staphylococcus aureus) infection: Patient went I&D and evacuation of abscess to the lumbar spine status post fusion. She did well postoperatively. Wound VAC been working very nicely and healing her wound. Back pain is controlled. Extra strength testing. Infectious diseases outlined appropriate antibiotic course. She is subsequently discharged home. Discharge orders instructions from the chart for further review. Total Time Total Time Spent Total Time Spent (In Minutes): 20 minutes Discharge Plan Discharge Items Patient Disposition: Home - Home Health Services Reason For Visit: SEPSIS Discharge Diagnosis: Lumbar abscess Condition on Discharge: Serious Activity: As commented below Non-emergency contact: Primary Care Provider Call non-emergency contact if: you have any medication questions Follow-up/Referrals: Anderson Nieves MD [Primary Care Provider] - (Date & Time 01/28/2025 10:20 AM Provider: Mercy Esqueda MD General Internal Medicine [facility] ) Diet: Regular Addtl Attending Provider Instructions: ACTIVITY RECOMMENDATIONS: SELF CARE INSTRUCTIONS AFTER THORACIC/LUMBAR FUSIONS 1. You may walk to your tolerance. It is good exercise for your legs and back. Expect some back and intermittent leg aches and pains. 2. You may perform "counter-top" level activities (make a sandwich, dipika with a project, etc.). 3. No bending or lifting of more than 10 pounds or back twisting of any nature (roll like a log when turning in bed). 4. You may ride in a car for 20-30 minutes at a time. No driving until after your first visit with your doctor. 5. Frequent changes of position and restricting sitting to 30 minutes at a time will help limit the amount of back spasms and stiffness you may experience. 6. You may discontinue the use of ambulatory aids (cane, crutches, etc.) once your strength and confidence allow. 7. You may mercerizing range feeder the shower and let water strike your incision when you arrive home at least once daily. Do not take a tub bath, sit in a hot tub or go into a swimming pool until after your first recheck in the office. 8. You may resume previous diet. SPECIAL CARE INSTRUCTIONS: VERY IMPORTANT TO READ AND REVIEW A. Your surgical incision has been closed with a cosmetic suture under the skin that will dissolve in about 6 weeks. In 14 days, you can use a pair of clean scissors and cut the suture that is left outside of the skin at the ends of your incision. 1. The small skin tapes can be removed 7 days after surgery if they have not fallen off by that point. 2. You may keep the wound open to air as much as possible to promote healing after post-op day number 5 unless told otherwise by your doctor. 3. If you think the wound looks like it is becoming infected (redness or worsening drainage) and/or you are experiencing fever, chill or worsening back pain and muscle spasms, contact the office so that we may evaluate you as soon as possible. B. Complications are uncommon, but please contact us if you have any signs or symptoms of: 1. wound infection (fever higher than 102.5 degrees F, redness, separation of wound, drainage, or increasing pain from the incision) 2. blood clots in legs (pain, swelling, redness and warmth in legs) 3. urinary tract infection (fever higher than 102.5 degrees F, burning upon urination or increased frequency of urination) 4. nerve problems (inability to walk on your toes or heels, numbness, loss of bowel or bladder control) 5. any other symptoms that concern you C. Please call the office at if you have any concerns or questions about your operation or recovery. D. No smoking! Smoking drastically decreases the chance of a solid fusion. E. Do not take any anti-inflammatory medications (Indocin, Advil, Motrin, Aspirin, Naprosyn, etc.) as these may inhibit the chance of a solid fusion. Tylenol is okay to take for pain. MANAGING PAIN AFTER SPINAL SURGERY 1. Narcotic medication is intended for short-term use and will be provided for surgical pain. Surgical pain usually lasts for a period of 4-6 weeks. Narcotic medication includes Percocet, Vicodin, Darvocet, Tylenol #3 or Lortab. 2. Longer-term pain is more appropriately treated with non-narcotic medication such as Tylenol ES. 3. Muscle spasm is not appropriately treated with narcotics. Muscle relaxers such as Soma, Flexeril or Skelaxin can be used along with Tylenol ES. 4. Remember that we all live with some "aches and pains". This is not unusual or uncommon after an injury or as we get older. a. Back pain is expected and may include muscle spasms for 4 to 6 weeks after surgery. The pain should gradually improve. If the pain worsens for no apparent reason, please contact the office. b. Intermittent leg pain may also be experienced and should not be concerned about unless it worsens for no apparent reason. If so, please contact the office. 5. We will provide appropriate medication within the normal guidelines of their prescribed use. We will also be very cautious and aware of potential abuse and extended duration of patients' medication needs. a. Pain medications are for your comfort and to assist with sleep and rest so that the tissue can heal. They are not provided in order to return to normal activity and should not be used through the day. To do so or worsening pain at night can result from ongoing tissue damage and development of tolerance to the prescribed medicine. 6. Please allow 2-3 days to process refills. Prescriptions will not be mailed but must be picked up at the office. FOLLOW UP VISIT: Keep your scheduled follow-up appointment. Any questions, please call the office at . Pending Studies at Discharge: No Stand-Alone Forms: My [facility], Smoking Cessation Medications and DC Order Prescriptions: New rifampin 300 mg Capsule 300 mg PO BID Qty: 90 0RF hydrocodone-acetaminophen 5-325 mg tablet 1 tab PO Q6H PRN (Reason: pain) Qty: 30 0RF Continued loratadine [Claritin] 10 mg tablet 10 mg PO QAM hydrochlorothiazide 25 mg tablet 25 mg PO QAM escitalopram oxalate [Lexapro] 20 mg tablet 20 mg PO QAM lansoprazole [Prevacid] 30 mg Capsule,Delayed Release(Dr/Ec) 30 mg PO QAM trazodone 50 mg Tablet 50 mg PO HS famotidine 40 mg tablet 40 mg PO HS calcium 250 mg Tablet 250 mg PO QAM metformin 500 mg tablet extended release 24 hr 500 mg PO QPM vitamin D3-vitamin K2 250 mcg (10,000 unit)-45 mcg Capsule 1 cap PO QAM Rx Instructions: x2 a week tirzepatide (weight loss) 7.5 mg/0.5 mL Solution 8.5 mg SUBCUT WK Patient Comments: unsure of dose Rx Instructions: Saturday Discontinued ibuprofen 200 mg Tablet 1,600 - 2,400 mg PO Q6H PRN (Reason: Pain) Discharge Orders: Discharge Order (Routine); Ordered 01/25/25 Ordered By: Jaguar Lyons Admission Data Admit Date/Time: 01/19/25 01:00 Attending Provider: Erick Estevez Admit Provider: Salvador Ramírez Primary Care Provider: Anderson Nieves Other Providers: Higinio Velasquez; Salvador Ramírez; Jaguar Lyons
--- NOTE | 2025-01-25 17:07 | Hospitalist Progress Note ---
Date of Service January 25, 2025 Assessment & Plan (1) Sepsis: Plan: Sepsis:Sepsis due to Methicillin susceptible Staphylococcus aureus Lumbar spinal abscess--POA --S/P irrigation and debridement of lumbar spine, wound VAC placement by Dr. Lyons on 01/19/2025 --Lumbar MRI:Terminal lumbar segment vertebra is labeled as L5. Grade I anterolisthesis of L4 over L5 vertebra is noted. Mild exaggeration of the lumbar lordosis is noted. Transpedicular fixation devices are noted involving L3, L4, L5, S1 vertebral levels producing susceptibility artifacts in these areas. Resultant suboptimal evaluation of the vertebrae, spinal canal and adjacent soft tissue is noted. Degenerative changes are noted in the visualized spine as described. Suspicious fusion of L4 and L5 vertebra is noted. Extensive posterior paraspinal soft tissu e edema, fat stranding and fluid collection is noted. Large collection is noted within the subcutaneous plane of the lumbar regionas described above. Possibility of infected collection/abscess. Mild posterior disc bulges are noted at L1-L2, L2-L3 levels indenting thecal sac, not causing any significant neural compression. Suboptimal evaluation at L3-L4, L4-L5, L5-S1 levels due to susceptibly artifacts. --She has multiple areas of hardware, in addition to her new lumbar spinal hardware. She has a history of bilateral knee replacements, including 3 replacement surgeries in her R knee and lots of metal in her right leg, as well as cervical spinal infection and plates in her L hand 4th/5th metacarpals. --Has been on I/V Zosyn, daptomycin for now - wound culture is growing Staph aureus-MSSA --Blood cultures have been negative --Wound care, activity as per orthopedic spine --Appreciate orthopedic spine help --Clinically much better and will continue with wound VAC and also PT OT evaluation --Has had ID evaluation and recommendations pending given hardware associated infection Remains medically stable with minimal back pain and wound VAC is in place Antibiotics has been as per ID recommendation and PICC line has been ordered regional training manager is working on placement/home health to continue antibiotic as advised Remains medically stable without any fever and no chills and the pain is controlled PICC line is placed and awaiting discharge disposition Remains medically stable without any significant symptoms and awaiting case managers evaluation for discharge Getting IV cefazolin through the PICC line Antibiotics will be continued as per recommendation from the infectious disease Remains medically stable and ready to be dischargedwill have antibiotic as per ID recommendations and antibiotics have been sent to home health agency She will have wound VAC management as advised by the wound care nurse and the provide She will be discharged tomorrow ID recommendation as below:- Change to cefazolin 2g IV q6h for MSSA spinal infection to complete a 6-week course (01/19/25 03/02/25). If discharging home, can change to cefazolin 8g IV daily continuous infusion - Please note that higher dosing abx are recommended given the patients weight/BMI - After completion of 6 weeks of IV abx, would then transition to PO abx for long-term PO suppression for at least 3-6 months, if not longer/indefinitely (e.g., cefadroxil 1000 mg PO BID or doxycycline 200 mg PO BID, given the patients weight BMI) - Start rifampin 300 mg PO BID for adjunctive therapy given placement of hardware, likely continue for at least 3-6 months if tolerating, in addition to the abx above - Please note medication interaction b/w rifampin and pantoprazole, discussed with pharmacy: rifampin may affect pantoprazole metabolism and make it less effective, but no need to change rifampin dosing - Recommend referral to local outpatient ID for follow-up if able - Weekly monitoring while on IV abx: CBC w/ diff, CMP, ESR, CRP. Recommend lab results are faxed to ortho and ID clinic (if applicable) Hyponatremia Hold HCTZ Sodium levels improved with IV fluids Sodium level has been normalized Sodium level has been normalized and it is running at 140 today and the creatinine is normal Hypertension Resume HCTZ as able Monitor blood pressure PVD, carotid artery disease Moderate TR Mood disorder Continue home medications CHRISTIAN on CPAP Pulmonary hypertension Prediabetes: HbA1c 5.7 Morbid obesity--on metformin, tirzepatide DVT Px: SCDs re:procedure CODE STATUS Full code Admission and Anticipated Discharge Date Admission Date: January 19, 2025 Subjective 01/20/2025 The patient was seen and examined in medical telemetry unit She has been feeling a lot better with minimal pain at the back and no radicular symptoms No fever and/or chills and denies any chest pain or palpitation No abdominal pain, nausea and or vomiting 01/21/2025 The patient was seen and examined in medical floor She has minimal back pain with no fever and/or chills and has been feeling a lot better She has had ID evaluation and awaiting recommendation Denies any other significant symptoms 01/22/2025 The patient was seen and examined in the medical floor in presence of the family members She has been stable with minimal pain at the back No fever no chills and does not have any nausea or vomiting She was seen by the ID specialist and recommendations in the chart 01/23/2025 The patient was seen and examined in the medical floor She has been complaining of nausea otherwise back pain is controlled and does not have any fever and no chills She has a PICC line yesterday and likely be discharged on Saturday01/24/2025 The patient was seen and examined in medical floor She has been feeling much better and denies any significant symptoms Noted to have a temperature of 38 Back pain is controlled and has been getting IV cefazolin through the PICC line 01/25/2025 The patient was seen and examined in medical floor She has been feeling much better and denies any significant symptoms today Denies any significant pain in the back and has had physical therapy Can be discharged as per orthospine service Review of Systems Review of Systems: All systems reviewed and unremarkable except as noted below Physical Exam Physical Exam: Sitting on a chair without any acute distress Constitutional: well developed, well nourished, + ill appearing and + obese Eyes: PERRL, conjunctivae normal, anicteric sclerae ENMT: external ear and nose normal, oropharynx normal Neck: trachea midline, no thyromegaly Respiratory: no respiratory distress Auscultation: lungs clear to auscultation bilaterally Cardiovascular: Rate/Rhythm: regular rate and regular rhythm; not tachycardic Heart Sounds: normal S1 and normal S2; no murmur Extremities: + edema (Trace edema bilaterally) Gastrointestinal (Abdomen): Inspection/Auscultation: normal bowel sounds; abdomen not distended Percussion/Palpation: abdomen soft; abdomen nontender Neurologic: normal touch/pain/proprioception and moves all extremities; no focal motor deficits Psychiatric: A+Ox3, euthymic affect Lymphatic: no cervical or axillary lymphadenopathy Results & Data Results & Data Vital Signs (Past 12 Hours) Vital Signs Temp Pulse Pulse Resp BP Pulse Ox O2 Del Method 01/25/25 15:17 36.3 C L 69 16 111/72 97 Room Air 01/25/25 07:18 36.8 C 75 16 119/77 95 Room Air Laboratory Results Short CBC 01/25/25 Range/Units 07:38 WBC 9.77 (4.8-10.8) K/ul Hgb 9.7 L (12.0-16.0) g/dl Hct 31.9 L (37.0-47.0) % Plt Count 578 H (130-400) K/uL BMP 01/25/25 07:38 Sodium 139 Potassium 4.1 Chloride 103 Carbon Dioxide 31 BUN 8 Creatinine 0.60 Glucose 104 H Calcium 9.1 Liver Function 01/25/25 Range/Units 07:38 Total Bilirubin 0.3 (0.2-1.0) mg/dl AST 49 H (13-39) U/L ALT 26 (7-52) U/L Alkaline Phosphatase 108 H (34-104) U/L Albumin 3.4 (3.4-5.0) gm/dl Medications Administered Current Inpatient Medications Acetaminophen (Acetaminophen 325 Mg Tab) 650 mg PO QID PRN PRN Reason: pain/fever Stop: 02/18/25 01:37 Last Admin: 01/25/25 06:27 Dose: 650 mg Hydrocodone Bitart/Acetaminophen (Hydrocodone/Acetamophen 5/325mg Tab) 1 tab PO QID PRN PRN Reason: Pain Stop: 02/02/25 01:37 Last Admin: 01/25/25 09:32 Dose: 1 tab Calcium Carbonate (Calcium Carbonate 500 Mg Chewable Tab) 500 mg PO Q6H PRN PRN Reason: Indigestion Stop: 02/22/25 11:14 Last Admin: 01/23/25 11:51 Dose: 500 mg Escitalopram Oxalate (Escitalopram Oxalate 20 Mg Tab) 20 mg PO QAM СВЕТЛАНА Stop: 02/18/25 08:59 Last Admin: 01/25/25 07:41 Dose: 20 mg Famotidine (Famotidine 40 Mg Tablet) 40 mg PO HS СВЕТЛАНА Stop: 02/18/25 20:59 Last Admin: 01/24/25 21:13 Dose: 40 mg Heparin Sodium (Beef Lung) (Heparin 10 Unit/Ml 5 Ml Flush) 5 ml FLUSH PRN PRN PRN Reason: Flush Stop: 02/22/25 09:32 Last Admin: 01/25/25 09:00 Dose: 5 ml Hydromorphone HCl (Hydromorphone Inj 0.5 Mg/0.5 Ml Syr) 0.5 mg IV Q6H PRN PRN Reason: Pain Stop: 02/02/25 01:38 Last Admin: 01/25/25 11:37 Dose: 0.5 mg Promethazine HCl (Phenergan) 12.5 mg in 50.5 mls @ 202 mls/hr IV Q6H PRN PRN Reason: Nausea And Vomiting Stop: 02/18/25 01:37 Last Infusion: 01/23/25 08:25 Dose: Infused Cefazolin Sodium (Ancef 2000mg) 2,000 mg in 15 mls @ 3.75 mls/min IV Q6H СВЕТЛАНА Stop: 03/04/25 11:14 Last Admin: 01/25/25 16:45 Dose: 3.75 mls/min Loratadine (Loratadine 10 Mg Tab) 10 mg PO QAM [facility] Stop: 02/18/25 08:59 Last Admin: 01/25/25 07:41 Dose: 10 mg Lorazepam (Lorazepam 0.5 Mg Tab) 0.5 mg PO TID PRN PRN Reason: Anxiety Stop: 02/18/25 01:37 Pantoprazole Sodium (Pantoprazole 40 Mg Tab) 40 mg PO QAM [facility] Stop: 02/18/25 08:59 Last Admin: 01/25/25 07:41 Dose: 40 mg Rifampin (Rifampin 300 Mg Capsule) 300 mg PO BID СВЕТЛАНА Stop: 02/20/25 20:59 Last Admin: 01/25/25 07:40 Dose: 300 mg Trazodone HCl (Trazodone Hcl 50 Mg Tab) 50 mg PO HS СВЕТЛАНА Stop: 02/18/25 20:59 Last Admin: 01/24/25 21:12 Dose: 50 mg (1) Sepsis Sepsis acute organ dysfunction status: without acute organ dysfunction Sepsis type: sepsis due to unspecified organism Qualified Code(s): A41.9 - Sepsis, unspecified organism
[2025-01-26 07:06] VITALS: PULSE 68; RESP 14; TEMP 98.4; O2SAT 94
[2025-01-26 10:12] VITALS: BP 120/74
--- NOTE | 2025-01-26 10:38 | Hospitalist Progress Note ---
Date of Service January 26, 2025 Assessment & Plan (1) Sepsis: Plan: Sepsis:Sepsis due to Methicillin susceptible Staphylococcus aureus Lumbar spinal abscess--POA --S/P irrigation and debridement of lumbar spine, wound VAC placement by Dr. Lyons on 01/19/2025 --Lumbar MRI:Terminal lumbar segment vertebra is labeled as L5. Grade I anterolisthesis of L4 over L5 vertebra is noted. Mild exaggeration of the lumbar lordosis is noted. Transpedicular fixation devices are noted involving L3, L4, L5, S1 vertebral levels producing susceptibility artifacts in these areas. Resultant suboptimal evaluation of the vertebrae, spinal canal and adjacent soft tissue is noted. Degenerative changes are noted in the visualized spine as described. Suspicious fusion of L4 and L5 vertebra is noted. Extensive posterior paraspinal soft tissu e edema, fat stranding and fluid collection is noted. Large collection is noted within the subcutaneous plane of the lumbar regionas described above. Possibility of infected collection/abscess. Mild posterior disc bulges are noted at L1-L2, L2-L3 levels indenting thecal sac, not causing any significant neural compression. Suboptimal evaluation at L3-L4, L4-L5, L5-S1 levels due to susceptibly artifacts. --She has multiple areas of hardware, in addition to her new lumbar spinal hardware. She has a history of bilateral knee replacements, including 3 replacement surgeries in her R knee and lots of metal in her right leg, as well as cervical spinal infection and plates in her L hand 4th/5th metacarpals. --Was on IV Zosyn, daptomycin>> transition to IV cefazolin as recommended by ID - wound culture is growing Staph aureus-MSSA --Blood cultures negative --Wound care, activity as per orthopedic spine --Appreciate orthopedic spine help -- Continue wound VAC, PT OT -- Appreciate infectious disease input. - PICC line placed for IV antibiotic course --wound VAC management as advised by the wound care nurse ID recommendation as below:- Change to cefazolin 2g IV q6h for MSSA spinal infection to complete a 6-week course (01/19/25 03/02/25). If discharging home, can change to cefazolin 8g IV daily continuous infusion - Please note that higher dosing abx are recommended given the patients weight/BMI - After completion of 6 weeks of IV abx, would then transition to PO abx for long-term PO suppression for at least 3-6 months, if not longer/indefinitely (e.g., cefadroxil 1000 mg PO BID or doxycycline 200 mg PO BID, given the patients weight BMI) - Start rifampin 300 mg PO BID for adjunctive therapy given placement of hardware, likely continue for at least 3-6 months if tolerating, in addition to the abx above - Please note medication interaction b/w rifampin and pantoprazole, discussed with pharmacy: rifampin may affect pantoprazole metabolism and make it less effective, but no need to change rifampin dosing - Recommend referral to local outpatient ID for follow-up if able - Weekly monitoring while on IV abx: CBC w/ diff, CMP, ESR, CRP. Recommend lab results are faxed to ortho and ID clinic (if applicable) -- Plan to discharge home with home health today Hyponatremia Resolved with IV fluids Monitor Hypertension Resume HCTZ on discharge Monitor blood pressure PVD, carotid artery disease Moderate TR Mood disorder Continue home medications CHRISTIAN on CPAP Pulmonary hypertension Prediabetes: HbA1c 5.7 Morbid obesity--on metformin, tirzepatide CODE STATUS Full code Disposition Home Admission and Anticipated Discharge Date Admission Date: January 19, 2025 Subjective Patient is seen and examined at bedside Offers no new complaints today Denies any pain at surgical site Family at bedside Denies any chest pain, dyspnea, nausea, vomiting, abdominal pain Plan to discharge home today Review of Systems Review of Systems: All systems reviewed & are unremarkable except as noted in Subjective Physical Exam Physical Exam: Physical Exam: Vitals signs as noted above General Appearance:Morbidly Obese, no apparent distress Head: normocephalic, Atraumatic Eyes: normal inspection, EOMI Neck: supple, Trachea midline Respiratory/Chest: Normal breath sounds, CTA, No accessory muscle use Cardiovascular: S1, S2, No murmur Abdomen/GI:Soft, Non tender, Bowel sounds present Back: Surgical site wound Vac Extremities/Musculoskeletal:normal inspection, no edema Neurologic/Psych:AAOX3, grossly no focal neurological deficits Skin: normal color, warm Results & Data Results & Data Vital Signs (Past 12 Hours) Vital Signs Temp Pulse Pulse Resp BP BP Pulse Ox 01/26/25 10:10 36.9 C 72 68 14 120/74 129/84 94 01/26/25 07:05 36.9 C 68 14 129/84 94 O2 Del Method 01/26/25 10:10 01/26/25 07:05 Room Air (1) Sepsis Sepsis acute organ dysfunction status: without acute organ dysfunction Sepsis type: sepsis due to unspecified organism Qualified Code(s): A41.9 - Sepsis, unspecified organism
[2025-01-26] MEDS: ADVANCED PROBIOTIC 625 MG CAPSULE PO SCH (11:28)
--- NOTE | 2025-01-26 12:22 | Discharge Summary ---
Date of Service January 26, 2025 Admission HPI Per Admitting Provider History obtained from patient and records. Medical history significant for hypertension, PVD, moderate TR, CHRISTIAN on CPAP, pulmonary hypertension, GERD, prediabetes, Ghanshyam syndrome as per records, endometriosis, mood disorder. Recent confinement under Orthopedics spine service 12/28- for lumbar radiculopathy status post decompression surgery. Hemoglobin 10.4 at time of discharge. Few days ago, patient noted some increase in low back pain without unusual weakness. Transient headache symptoms which patient attributes to oxycodone. No neck pain. 2 days ago, patient noted clear drainage from wound associated with fever, chills, nausea. Poor appetite. Patient consulted ER for worsening symptoms. Cefepime administered at the ER. Medical History as above Surgical History : Spine surgery, dental surgery, hysterectomy, knee surgery, tonsillectomy, D&C, cataract surgery, wrist surgery, septoplasty Family History : DM, heart disease, black lung, kidney cancer, colon cancer Personal/Social history : Non-smoker, rare EtOH intake, x-ray tech Admission Exam Per Admitting Provider GENERAL: Comfortable, pleasant, morbidly obese, no respiratory distress, lying on her left side SKIN: Pallor, warm HEENT: bespectacled, pale, palpebral conjunctivae, no ptosis, dry buccal mucosa NECK : Supple, short neck, no tenderness CHEST : CTA, no tenderness HEART : Tachycardic, no obvious murmurs ABDOMEN: Some distention, nontender BACK : Well coaptated incision low back with minimal surrounding erythema, minimal lumbar tenderness EXTREMITIES : Bilateral LE swelling, no LE tenderness, palpable pulses, no other conspicuous deformities noted NEUROLOGIC : Coherent, no facial asymmetry, no other gross focality Principal Diagnosis Lumbar abscess Sepsis Hyponatremia Discharge Data Allergies Allergy/AdvReac Type Severity Reaction Status Date / Time lisinopril Allergy Severe Face, Verified 12/28/24 07:56 Lips, Tongue Edema vancomycin Allergy Severe Red Man Verified 12/28/24 07:56 Syndrome celecoxib Allergy Intermediate "skin Verified 12/28/24 07:56 turned pinkish" morphine Allergy Intermediate Itchiness Verified 12/28/24 07:56 silver Allergy Intermediate Itchiness, Verified 12/28/24 07:56 Redness oxycodone AdvReac Intermediate Headache Verified 01/19/25 01:43 Penicillins AdvReac Intermediate Fatigue/Trouble Verified 12/28/24 07:56 Walking Consultations 01/19/25 00:37 ED Decision to Admit Stat 01/19/25 01:39 Consult Orthopedic Spine Surgery Routine 01/21/25 08:39 Consult Infectious Diseases Routine Procedures Performed Operation Date: 01/19/25 09:35 Actual Procedures p Incision and Drainage Lumbar Spine(Not Applicable) - Jaguar Lyons DO Ordered Studies Laboratory Results WBC 9.77 K/ul (4.8-10.8) 01/25/25 07:38 RBC 3.64 M/uL (4.20-5.40) L 01/25/25 07:38 Hgb 9.7 g/dl (12.0-16.0) L 01/25/25 07:38 Hct 31.9 % (37.0-47.0) L 01/25/25 07:38 MCV 87.6 fL (80.0-100.0) 01/25/25 07:38 MCH 26.6 pg (25.0-34.0) 01/25/25 07:38 MCHC 30.4 g/dL (32.0-36.0) L 01/25/25 07:38 RDW Std Deviation 47.7 fL (36.4-46.3) H 01/25/25 07:38 RDW Coeff of Macho 14.9 % (11.5-14.5) H 01/25/25 07:38 Plt Count 578 K/uL (130-400) H 01/25/25 07:38 MPV 8.7 fL (9.4-12.4) L 01/25/25 07:38 Immature Gran % (Auto) 2.6 % 01/25/25 07:38 Neut % (Auto) 62.8 % 01/25/25 07:38 Lymph % (Auto) 21.5 % 01/25/25 07:38 [place] % (Auto) 7.4 % 01/25/25 07:38 Eos % (Auto) 5.1 % 01/25/25 07:38 Baso % (Auto) 0.6 % 01/25/25 07:38 Neut # (Auto) 6.14 K/uL (1.40-6.50) 01/25/25 07:38 Lymph # (Auto) 2.10 K/uL (1.20-3.40) 01/25/25 07:38 [place] # (Auto) 0.72 K/uL (0.11-0.59) H 01/25/25 07:38 Eos # (Auto) 0.50 K/uL (0.00-0.50) 01/25/25 07:38 Baso # (Auto) 0.06 K/uL (0.00-0.20) 01/25/25 07:38 Immature Gran # (Auto) 0.25 K/uL (0.01-0.20) H 01/25/25 07:38 Absolute Nucleated RBC 0.06 K/uL (0.00-0.12) 01/23/25 06:49 Nucleated RBC % (auto) 0.8 % 01/23/25 06:49 Polychromasia 3+ 01/23/25 06:49 Hypochromasia Present 01/23/25 06:49 ESR 109 mm/hr (0-30) H 01/25/25 07:38 PT 12.0 Seconds (9.0-12.0) 01/18/25 23:23 INR 1.1 (0.9-1.1) 01/18/25 23:23 APTT 35 Seconds (21-31) H 01/18/25 23:23 PTT Ratio 1.3 01/18/25 23:23 Sodium 139 mmol/L (136-145) 01/25/25 07:38 Potassium 4.1 mmol/L (3.5-5.1) 01/25/25 07:38 Chloride 103 mmol/L (98-107) 01/25/25 07:38 Carbon Dioxide 31 mmol/L (21-32) 01/25/25 07:38 Anion Gap 5 (3-11) 01/25/25 07:38 BUN 8 mg/dl (6-23) 01/25/25 07:38 Creatinine 0.60 mg/dl (0.6-1.2) 01/25/25 07:38 Est Cr Clr Drug Dosing 134.9 ml/min 01/25/25 07:38 eGFR 103.33 01/25/25 07:38 BUN/Creatinine Ratio 13.3 (10-20) 01/25/25 07:38 Glucose 104 mg/dl (70-99(Fasting)) H 01/25/25 07:38 Osmolality 275 mOsm/kg (280-300) L 01/18/25 23:23 Lactate 1.2 mmol/L (0.4-2.0) 01/18/25 23:23 Calcium 9.1 mg/dl (8.6-10.3) 01/25/25 07:38 Magnesium 2.1 mg/dl (1.7-2.4) 01/20/25 06:45 Total Bilirubin 0.3 mg/dl (0.2-1.0) 01/25/25 07:38 AST 49 U/L (13-39) H 01/25/25 07:38 ALT 26 U/L (7-52) 01/25/25 07:38 Alkaline Phosphatase 108 U/L (34-104) H 01/25/25 07:38 Troponin I High Sens 7.6 pg/ml (0-14) 01/18/25 23:23 C-Reactive Protein 3.74 mg/dl (0-0.5) H 01/25/25 07:38 Total Protein 6.9 gm/dl (6.0-8.3) 01/25/25 07:38 Albumin 3.4 gm/dl (3.4-5.0) 01/25/25 07:38 Globulin 3.5 gm/dl (2.5-4.0) 01/25/25 07:38 Albumin/Globulin Ratio 1.0 (0.9-2) 01/25/25 07:38 Procalcitonin 0.30 ng/ml (0-0.5) 01/18/25 23:23 TSH 0.895 uIu/ml (0.300-4.500) 01/18/25 23:23 Urine Color Yellow 01/19/25 01:15 Urine Appearance Clear (Clear) 01/19/25 01:15 Urine pH 6.5 (4.5-7.5) 01/19/25 01:15 Ur Specific [place] 1.022 (1.000-1.030) 01/19/25 01:15 Urine Protein Trace (Negative) H 01/19/25 01:15 Urine Glucose (UA) Negative (Negative) 01/19/25 01:15 Urine Ketones Trace (Negative) H 01/19/25 01:15 Urine Blood Negative (Negative) 01/19/25 01:15 Urine Nitrite Negative (Negative) 01/19/25 01:15 Urine Bilirubin Negative (Negative) 01/19/25 01:15 Urine Urobilinogen Negative (Negative) 01/19/25 01:15 Ur Leukocyte Esterase 1+ (Negative) H 01/19/25 01:15 Urine WBC (Auto) 0-5 /hpf (0-5) 01/19/25 01:15 Urine RBC (Auto) 0-2 /hpf (0-2) 01/19/25 01:15 U Hyaline Cast (Auto) 0-2 /lpf (0-2) 01/19/25 01:15 U Epithel Cells (Auto) 3-5 /hpf (0-2) H 01/19/25 01:15 Urine Bacteria (Auto) None Seen (None Seen) 01/19/25 01:15 Urine Comment 01/19/25 01:15 SARS-CoV-2 (PCR) NEGATIVE (Negative) 01/19/25 00:11 Influenza Type A (PCR) Negative (Neg) 01/19/25 00:11 Influenza Type B (PCR) Negative (Neg) 01/19/25 00:11 RSV (RT-PCR) Negative (Neg) 01/19/25 00:11 Impressions Chest X-Ray 01/18/25 23:49 EXAM: XR chest 1V portable CLINICAL HISTORY: Fever. TECHNIQUE: An X-ray image of the chest is obtained in AP projection. COMPARISON: dated 12/14/2024 FINDINGS: Pulmonary Parenchyma: Lungs are clear bilaterally. No evidence of consolidation, collapse, or focal opacities. No pulmonary nodules are identified. No evidence of pleural effusion or pleural thickening. Heart and Mediastinum: Heart size and shape are normal. No mediastinal widening or masses. No hilar or mediastinal lymphadenopathy. Bony Thorax: Bony thorax appears intact without fractures or deformities. Soft Tissues: Soft tissues overlying the chest wall are unremarkable. Evidence of anterior cervical fixation. IMPRESSION: 1. Normal chest X-ray. No acute cardiopulmonary abnormalities are identified. 2. No interval changes. Electronically signed by Brodie Lin 01-19-2025 01:19 AM Lumbar Spine MRI 01/19/25 01:36 EXAM: MR lumbar spine wo/w con CLINICAL HISTORY: surgical wound infection TECHNIQUE: MRI of the lumbar spine was performed without the administration of intravenous contrast. Sequences obtained include sagittal T1-weighted, T2-weighted, STIR (Short Tau Inversion Recovery), and axial T2-weighted sequences. COMPARISON: No previous studies are available for comparison. FINDINGS: Status post lower lumbar fixation with laminectomy,metallic rods and transpedicular screws insitu causing susceptibility artefacts. Terminal lumbar segment vertebra is labeled as L5. Grade I anterolisthesis of L4 over L5 vertebra is noted. Mild exaggeration of the lumbar lordosis is noted. Transpedicular fixation devices are noted involving L3, L4, L5, S1 vertebral levels producing susceptibility artifacts in these areas. Resultant suboptimal evaluation of the vertebrae, spinal canal and adjacent soft tissue is noted. Degenerative changes are noted in the visualized spine in the form of marginal osteophytes, endplate irregularities, reduction in the disc heights, degenerated discs at all the levels. Suspicious fusion of L4 and L5 vertebra is noted. Extensive posterior paraspinal soft tissue edema, fat stranding and fluid collection is noted. Large collection is noted within the subcutaneous plane of the lumbar region. It measures approximately 11.4 x 10.8 x 15.9 cm (AP x TR x CC) in size. It has relatively thick jiang. Multiple septations are noted within it. Multiple hypointense foci are noted within this collection, may represent air foci or calcifications. This fluid appears to be indenting the epidural fat at distal lumbar and the proximal sacral level. However, no obvious extension within the spinal canal or compression of the thecal sac is noted. Possibility of infected collection/abscess. Mild posterior disc bulges are noted at L1-L2, L2-L3 levels indenting thecal sac, not causing any significant neural compression. Suboptimal evaluation at L3-L4, L4-L5, L5-S1 levels due to susceptibly artifacts. IMPRESSION: Terminal lumbar segment vertebra is labeled as L5. Grade I anterolisthesis of L4 over L5 vertebra is noted. Mild exaggeration of the lumbar lordosis is noted. Transpedicular fixation devices are noted involving L3, L4, L5, S1 vertebral levels producing susceptibility artifacts in these areas. Resultant suboptimal evaluation of the vertebrae, spinal canal and adjacent soft tissue is noted. Degenerative changes are noted in the visualized spine as described. Suspicious fusion of L4 and L5 vertebra is noted. Extensive posterior paraspinal soft tissue edema, fat stranding and fluid collection is noted. Large collection is noted within the subcutaneous plane of the lumbar regionas described above. Possibility of infected collection/abscess. Mild posterior disc bulges are noted at L1-L2, L2-L3 levels indenting thecal sac, not causing any significant neural compression. Suboptimal evaluation at L3-L4, L4-L5, L5-S1 levels due to susceptibly artifacts. Electronically signed by Naveen Andrade 01-19-2025 03:55 AM Hospital Course (1) Sepsis: Sepsis:Sepsis due to Methicillin susceptible Staphylococcus aureus Lumbar spinal abscess--POA --S/P irrigation and debridement of lumbar spine, wound VAC placement by Dr. Lyons on 01/19/2025 --Lumbar MRI:Terminal lumbar segment vertebra is labeled as L5. Grade I anterolisthesis of L4 over L5 vertebra is noted. Mild exaggeration of the lumbar lordosis is noted. Transpedicular fixation devices are noted involving L3, L4, L5, S1 vertebral levels producing susceptibility artifacts in these areas. Resultant suboptimal evaluation of the vertebrae, spinal canal and adjacent soft tissue is noted. Degenerative changes are noted in the visualized spine as described. Suspicious fusion of L4 and L5 vertebra is noted. Extensive posterior paraspinal soft tissue edema, fat stranding and fluid collection is noted. Large collection is noted within the subcutaneous plane of the lumbar regionas described above. Pos sibility of infected collection/abscess. Mild posterior disc bulges are noted at L1-L2, L2-L3 levels indenting thecal sac, not causing any significant neural compression. Suboptimal evaluation at L3-L4, L4-L5, L5-S1 levels due to susceptibly artifacts. --She has multiple areas of hardware, in addition to her new lumbar spinal hardware. She has a history of bilateral knee replacements, including 3 replacement surgeries in her R knee and lots of metal in her right leg, as well as cervical spinal infection and plates in her L hand 4th/5th metacarpals. --Was on IV Zosyn, daptomycin>> transition to IV cefazolin as recommended by ID - wound culture is growing Staph aureus-MSSA --Blood cultures negative --Wound care, activity as per orthopedic spine --Appreciate orthopedic spine help -- Continue wound VAC, PT OT -- Appreciate infectious disease input. - PICC line placed for IV antibiotic course --wound VAC management as advised by the wound care nurse ID recommendation as below:- Change to cefazolin 2g IV q6h for MSSA spinal infection to complete a 6-week course (01/19/25 03/02/25). If discharging home, can change to cefazolin 8g IV daily continuous infusion - Please note that higher dosing abx are recommended given the patients weight/BMI - After completion of 6 weeks of IV abx, would then transition to PO abx for long-term PO suppression for at least 3-6 months, if not longer/indefinitely (e.g., cefadroxil 1000 mg PO BID or doxycycline 200 mg PO BID, given the patients weight BMI) - Start rifampin 300 mg PO BID for adjunctive therapy given placement of hardware, likely continue for at least 3-6 months if tolerating, in addition to the abx above - Please note medication interaction b/w rifampin and pantoprazole, discussed with pharmacy: rifampin may affect pantoprazole metabolism and make it less effective, but no need to change rifampin dosing - Recommend referral to local outpatient ID for follow-up if able - Weekly monitoring while on IV abx: CBC w/ diff, CMP, ESR, CRP. Recommend lab results are faxed to ortho and ID clinic (if applicable) -- Plan to discharge home with home health today Hyponatremia Resolved with IV fluids Monitor Hypertension Resume HCTZ on discharge Monitor blood pressure PVD, carotid artery disease Moderate TR Mood disorder Continue home medications CHRISTIAN on CPAP Pulmonary hypertension Prediabetes: HbA1c 5.7 Morbid obesity--on metformin, tirzepatide CODE STATUS Full code Disposition Home Total Time Total Time Spent Total Time Spent (In Minutes): 48 minutes Discharge Plan Discharge Items Patient Disposition: Home - Home Health Services Reason For Visit: SEPSIS Discharge Diagnosis: Lumbar abscess Sepsis Hyponatremia Condition on Discharge: Serious Activity: As commented below Exercise/Sports: Wait until after follow-up appointment Non-emergency contact: Primary Care Provider, Surgeon and Specialist Call non-emergency contact if: you have any medication questions, your symptoms worsen, your pain is concerning for you, you have a fever, your temperature is above 101.5, your wound has increased redness and your wound has increased drainage Follow-up/Referrals: Anderson Nieves MD [Primary Care Provider] - (Date & Time 01/28/2025 10:20 AM Provider: Mercy Esqueda MD General Internal Medicine [facility] ) Diet: Regular Addtl Attending Provider Instructions: ACTIVITY RECOMMENDATIONS: SELF CARE INSTRUCTIONS AFTER THORACIC/LUMBAR FUSIONS 1. You may walk to your tolerance. It is good exercise for your legs and back. Expect some back and intermittent leg aches and pains. 2. You may perform "counter-top" level activities (make a sandwich, dipika with a project, etc.). 3. No bending or lifting of more than 10 pounds or back twisting of any nature (roll like a log when turning in bed). 4. You may ride in a car for 20-30 minutes at a time. No driving until after your first visit with your doctor. 5. Frequent changes of position and restricting sitting to 30 minutes at a time will help limit the amount of back spasms and stiffness you may experience. 6. You may discontinue the use of ambulatory aids (cane, crutches, etc.) once your strength and confidence allow. 7. 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 Do not take a tub bath, sit in a hot tub or go into a swimming pool until after your first recheck in the office. 8. You may resume previous diet. SPECIAL CARE INSTRUCTIONS: VERY IMPORTANT TO READ AND REVIEW A. Your surgical incision has been closed with a cosmetic suture under the skin that will dissolve in about 6 weeks. In 14 days, you can use a pair of clean scissors and cut the suture that is left outside of the skin at the ends of your incision. 1. The small skin tapes can be removed 7 days after surgery if they have not fallen off by that point. 2. You may keep the wound open to air as much as possible to promote healing after post-op day number 5 unless told otherwise by your doctor. 3. If you think the wound looks like it is becoming infected (redness or worsening drainage) and/or you are experiencing fever, chill or worsening back pain and muscle spasms, contact the office so that we may evaluate you as soon as possible. B. Complications are uncommon, but please contact us if you have any signs or symptoms of: 1. wound infection (fever higher than 102.5 degrees F, redness, separation of wound, drainage, or increasing pain from the incision) 2. blood clots in legs (pain, swelling, redness and warmth in legs) 3. urinary tract infection (fever higher than 102.5 degrees F, burning upon urination or increased frequency of urination) 4. nerve problems (inability to walk on your toes or heels, numbness, loss of bowel or bladder control) 5. any other symptoms that concern you C. Please call the office at if you have any concerns or questions about your operation or recovery. D. No smoking! Smoking drastically decreases the chance of a solid fusion. E. Do not take any anti-inflammatory medications (Indocin, Advil, Motrin, Aspirin, Naprosyn, etc.) as these may inhibit the chance of a solid fusion. Tylenol is okay to take for pain. MANAGING PAIN AFTER SPINAL SURGERY 1. Narcotic medication is intended for short-term use and will be provided for surgical pain. Surgical pain usually lasts for a period of 4-6 weeks. Narcotic medication includes Percocet, Vicodin, Darvocet, Tylenol #3 or Lortab. 2. Longer-term pain is more appropriately treated with non-narcotic medication such as Tylenol ES. 3. Muscle spasm is not appropriately treated with narcotics. Muscle relaxers such as Soma, Flexeril or Skelaxin can be used along with Tylenol ES. 4. Remember that we all live with some "aches and pains". This is not unusual or uncommon after an injury or as we get older. a. Back pain is expected and may include muscle spasms for 4 to 6 weeks after surgery. The pain should gradually improve. If the pain worsens for no apparent reason, please contact the office. b. Intermittent leg pain may also be experienced and should not be concerned about unless it worsens for no apparent reason. If so, please contact the office. 5. We will provide appropriate medication within the normal guidelines of their prescribed use. We will also be very cautious and aware of potential abuse and extended duration of patients' medication needs. a. Pain medications are for your comfort and to assist with sleep and rest so that the tissue can heal. They are not provided in order to return to normal activity and should not be used through the day. To do so or worsening pain at night can result from ongoing tissue damage and development of tolerance to the prescribed medicine. 6. Please allow 2-3 days to process refills. Prescriptions will not be mailed but must be picked up at the office. FOLLOW UP VISIT: Keep your scheduled follow-up appointment. Any questions, please call the office at . Addtl Medical Insurance Claims Processor Provider Instructions: Follow-up with your primary care physician Dr. Nieves as scheduled Follow-up with your infectious disease Dr.Diane Deng in 3-4 weeks as recommended --Continue IV cefazolin 2 g every 8 hours for MSSA spinal infection till 03/02/2025. After completion of 6-week course of IV antibiotics, your infectious disease specialist recommends prolonged course of oral antibiotics for suppressive therapy. Please follow-up with infectious disease in 3 to 4 weeks for further recommendations. -- Obtain weekly blood test(CMP, CBC, ESR, CRP while on IV antibiotics.) Pending Studies at Discharge: No Stand-Alone Forms: My [facility], Smoking Cessation Medications and DC Order Prescriptions: New rifampin 300 mg Capsule 300 mg PO BID Qty: 90 0RF hydrocodone-acetaminophen 5-325 mg tablet 1 tab PO Q6H PRN (Reason: pain) Qty: 30 0RF Advanced Probiotic 625 mg (10 billion cell) Capsule 1 cap PO DAILY Qty: 30 3RF Continued loratadine [Claritin] 10 mg tablet 10 mg PO QAM hydrochlorothiazide 25 mg tablet 25 mg PO QAM escitalopram oxalate [Lexapro] 20 mg tablet 20 mg PO QAM lansoprazole [Prevacid] 30 mg Capsule,Delayed Release(Dr/Ec) 30 mg PO QAM trazodone 50 mg Tablet 50 mg PO HS famotidine 40 mg tablet 40 mg PO HS calcium 250 mg Tablet 250 mg PO QAM metformin 500 mg tablet extended release 24 hr 500 mg PO QPM vitamin D3-vitamin K2 250 mcg (10,000 unit)-45 mcg Capsule 1 cap PO QAM Rx Instructions: x2 a week tirzepatide (weight loss) 7.5 mg/0.5 mL Solution 8.5 mg SUBCUT WK Patient Comments: unsure of dose Rx Instructions: Saturday Discontinued ibuprofen 200 mg Tablet 1,600 - 2,400 mg PO Q6H PRN (Reason: Pain) Discharge Orders: Discharge Order (Routine); Ordered 01/26/25 Ordered By: Jaguar Lyons Admission Data Admit Date/Time: 01/19/25 01:00 Attending Provider: Higinio Velasquez Admit Provider: Salvador Ramírez Primary Care Provider: Anderson Nieves Other Providers: Higinio Velasquez; Salvador Ramírez; Jaguar Lyons Other Interventions: Discharge Summary Assessment (RN) Last Done: 01/26/25 10:10
== END 2025-01-26 11:39 | disposition home health service (06) ==
LOC: ED 22:44 → SUATTDRO 01-19 01:00 → 2N 01-19 01:00 → INTOOBSV 01-19 01:00 → 2N 01-19 02:42 → 3N 01-21 05:34